=== PATIENT | male | born 1955 | race Caucasian/White ===

== ENCOUNTER 2018-11-12 17:55 | Inpatient (IN) | payer MEDICARE ==
[2018-11-12] MEDS ORDERED: SODIUM CHLORIDE 0.9% 500 ML 500 ML IV STA (18:01)
--- NOTE | 2018-11-12 18:31 | ED ---
General Adult HPI - General Stated complaint: POSS CVA Time Seen by Provider: 11/12/18 17:56 Source: EMS Mode of arrival: EMS Limitations: no limitations - History of Present Illness Initial comments: Dictation was produced using [employer] dictation software. please excuse any grammatical, word or spelling errors. Chief Complaint: 63-year-old male with past medical history of diabetes and BKA presents with strokelike symptoms starting 6 hours ago History of Present Illness: 63-year-old male presents with strokelike symptoms starting 6 hours prior to arrival. Patient states she was in bed when he is awake when he medially noted that he felt some weakness. Patient states that his with his left arm. Patient denies any stroke in the past. He called EMS and EMS brought patient to the emergency department. EMS found the patient had some arm drift and left facial droop. Patient denies any blood thinners or history of CVA/TIA. Denies any intracranial bleed. The ROS documented in this emergency department record has been reviewed and co nfirmed by me. Those systems with pertinent positive or negative responses have been documented in the HPI. All other systems are other negative and/or noncontributory. PHYSICAL EXAM: General Impression: Alert and oriented x3, not in acute distress, malodorous HEENT: Normocephalic atraumatic, extra-ocular movements intact, pupils equal and reactive to light bilaterally, mucous membranes moist. Cardiovascular: Heart regular rate and rhythm, S1&S2 audible, no murmurs, rubs or gallops Chest: Lungs clear to auscultation bilaterally, no rhonchi, no wheeze, no rales Abdomen: Bowel sounds present, abdomen soft, non-tender, non-distended, no organomegaly Musculoskeletal: Pulses present and equal in all extremities, no peripheral edema Motor: no focal deficits noted Neurological: Left facial droop, left upper extremity arm drift Skin: Intact with no visualized rashes Psych: Normal affect and mood ED course: 63-year-old male with 6 hours of strokelike symptoms. Patient given initial NIH of 2. Vital signs upon arrival are within acceptable limits.Patient case was discussed with Dr. Garcia who recommended that patient is not a candidate for TPA. Agree with this recommendation. Patient reevaluated with improvement of his symptoms. Laboratory evaluation obtained. CBC, coag panel, metabolic panel is unremarkable. CT angios does not show an acute processes. Brain CT is unremarkable. Chest x-ray is nonacute. Patient given aspirin. Patient be admitted to [facility]. Discussed patient case with Dr. Hartman who is willing to accept admission. Neurology consultation. EKG interpretation: Ventricular rate 75, normal sinus rhythm, WV interval 184, care is 134, QTc 444. No WV prolongation, no QTC prolongation, no ST or T-wave changes noted. No old EKG for comparison - Related Data Home Medications Medication Instructions Recorded Confirmed INSULIN ASPART (NovoLOG) [NovoLOG 10 unit SQ AC-TID 11/12/18 11/12/18 (formulary)] Allergies Allergy/AdvReac Type Severity Reaction Status Date / Time No Known Allergies Allergy Unverified 11/12/18 18:22 Review of Systems ROS Statement: Those systems with pertinent positive or pertinent negative responses have been documented in the HPI. ROS Other: All systems not noted in ROS Statement are negative. Past Medical History Past Medical History: Unable to Obtain History of Any Multi-Drug Resistant Organisms: None Reported Past Surgical History: Unable to Obtain Past Psychological History: Depression Smoking Status: Never smoker Past Alcohol Use History: None Reported Past Drug Use History: None Reported General Exam Limitations: no limitations Course Vital Signs 11/12/18 11/12/18 11/12/18 18:00 18:15 18:28 Temperature 97.9 F Pulse Rate 102 H 89 100 Respiratory 20 18 20 Rate Blood Pressure 165/100 162/99 165/100 O2 Sat by Pulse 97 97 97 Oximetry 11/12/18 11/12/18 11/12/18 18:30 18:40 18:50 Temperature Pulse Rate 90 75 74 Respiratory 18 16 17 Rate Blood Pressure 167/87 158/95 168/98 O2 Sat by Pulse 92 L 95 94 L Oximetry 11/12/18 19:30 Temperature 98.2 F Pulse Rate 72 Respiratory 18 Rate Blood Pressure 167/92 O2 Sat by Pulse 96 Oximetry Medical Decision Making - Lab Data Result diagrams: 11/12/18 18:23 11/12/18 18:23 Lab Results 11/12/18 11/12/18 11/12/18 Range/Units 18:23 18:23 18:23 WBC 7.6 (3.8-10.6) k/uL RBC 5.80 (4.30-5.90) m/uL Hgb 17.9 H (13.0-17.5) gm/dL Hct 53.7 H (39.0-53.0) % MCV 92.5 (80.0-100.0) fL MCH 30.8 (25.0-35.0) pg MCHC 33.3 (31.0-37.0) g/dL RDW 13.0 (11.5-15.5) % Plt Count 149 L (150-450) k/uL Neutrophils % 69 % Lymphocytes % 21 % Monocytes % 4 % Eosinophils % 3 % Basophils % 1 % Neutrophils # 5.3 (1.3-7.7) k/uL Lymphocytes # 1.6 (1.0-4.8) k/uL Monocytes # 0.3 (0-1.0) k/uL Eosinophils # 0.3 (0-0.7) k/uL Basophils # 0.1 (0-0.2) k/uL PT (9.0-12.0) sec INR (<1.2) APTT (22.0-30.0) sec Sodium 134 L (137-145) mmol/L Potassium 3.9 (3.5-5.1) mmol/L Chloride 104 (98-107) mmol/L Carbon Dioxide 24 (22-30) mmol/L Anion Gap 6 mmol/L BUN 12 (9-20) mg/dL Creatinine 0.87 (0.66-1.25) mg/dL Est GFR (CKD-EPI)AfAm >90 (>60 ml/min/1.73 sqM) Est GFR (CKD-EPI)NonAf >90 (>60 ml/min/1.73 sqM) Glucose 278 H (74-99) mg/dL Calcium 9.9 (8.4-10.2) mg/dL Total Bilirubin 0.7 (0.2-1.3) mg/dL AST 11 L (17-59) U/L ALT 11 L (21-72) U/L Alkaline Phosphatase 99 (38-126) U/L Total Creatine Kinase 33 L (55-170) U/L CK-MB (CK-2) 0.3 (0.0-2.4) ng/mL CK-MB (CK-2) Rel Index 0.9 Troponin I <0.012 (0.000-0.034) ng/mL Total Protein 6.3 (6.3-8.2) g/dL Albumin 3.2 L (3.5-5.0) g/dL 11/12/18 Range/Units 18:23 WBC (3.8-10.6) k/uL RBC (4.30-5.90) m/uL Hgb (13.0-17.5) gm/dL Hct (39.0-53.0) % MCV (80.0-100.0) fL MCH (25.0-35.0) pg MCHC (31.0-37.0) g/dL RDW (11.5-15.5) % Plt Count (150-450) k/uL Neutrophils % % Lymphocytes % % Monocytes % % Eosinophils % % Basophils % % Neutrophils # (1.3-7.7) k/uL Lymphocytes # (1.0-4.8) k/uL Monocytes # (0-1.0) k/uL Eosinophils # (0-0.7) k/uL Basophils # (0-0.2) k/uL PT 10.2 (9.0-12.0) sec INR 1.0 (<1.2) APTT 26.3 (22.0-30.0) sec Sodium (137-145) mmol/L Potassium (3.5-5.1) mmol/L Chloride (98-107) mmol/L Carbon Dioxide (22-30) mmol/L Anion Gap mmol/L BUN (9-20) mg/dL Creatinine (0.66-1.25) mg/dL Est GFR (CKD-EPI)AfAm (>60 ml/min/1.73 sqM) Est GFR (CKD-EPI)NonAf (>60 ml/min/1.73 sqM) Glucose (74-99) mg/dL Calcium (8.4-10.2) mg/dL Total Bilirubin (0.2-1.3) mg/dL AST (17-59) U/L ALT (21-72) U/L Alkaline Phosphatase (38-126) U/L Total Creatine Kinase (55-170) U/L CK-MB (CK-2) (0.0-2.4) ng/mL CK-MB (CK-2) Rel Index Troponin I (0.000-0.034) ng/mL Total Protein (6.3-8.2) g/dL Albumin (3.5-5.0) g/dL Disposition Clinical Impression: Cerebrovascular accident Disposition: ADMITTED IP TO THIS HOSP Condition: Fair Referrals: None,Stated [Primary Care Provider] - 1-2 days Decision Time: 20:40
[2018-11-12 18:34] LABS: Basophils # (A) 0.1 k/uL (0-0.2); Basophils % (A) 1 %; Eosinophils # (A) 0.3 k/uL (0-0.7); Eosinophils % (A) 3 %; HCT 53.7 % (39.0-53.0); HGB 17.9 gm/dL (13.0-17.5); Lymphocytes # (A) 1.6 k/uL (1.0-4.8); Lymphocytes % (A) 21 %; MCH 30.8 pg (25.0-35.0); MCHC 33.3 g/dL (31.0-37.0); MCV 92.5 fL (80.0-100.0); Mean Platelet Volume 8.4; Monocytes # (A) 0.3 k/uL (0-1.0); Monocytes % (A) 4 %; Neutrophils # (A) 5.3 k/uL (1.3-7.7); Neutrophils % (A) 69 %; Platelet Count 149 k/uL (150-450); WBC 7.6 k/uL (3.8-10.6)
--- NOTE | 2018-11-12 18:43 | CT ---
EXAMINATION TYPE: CT brain wo con for TPA DATE OF EXAM: 11/12/2018 HISTORY: Cerebrovascular accident CT DLP: 1184.4 mGycm. Automated Exposure Control for Dose Reduction was Utilized. TECHNIQUE: CT scan of the head is performed without contrast. COMPARISON: None. FINDINGS: There is no acute intracranial hemorrhage or midline shift identified. There is diffuse v entricular and sulcal prominence consistent with diffuse age-related cerebral atrophy. There is low- attenuation in the periventricular white matter consistent with chronic small vessel ischemic change. The globes are intact and the visualized sinuses are clear. IMPRESSION: No acute intracranial hemorrhage or midline shift.
[2018-11-12 18:44] LABS: ALT 11 U/L (21-72); AST 11 U/L (17-59); Albumin 3.2 g/dL (3.5-5.0); Alkaline Phosphatase 99 U/L (38-126); Anion Gap 6 mmol/L; Blood Urea Nitrogen 12 mg/dL (9-20); Calcium 9.9 mg/dL (8.4-10.2); Carbon Dioxide 24 mmol/L (22-30); Chloride 104 mmol/L (98-107); Glucose 278 mg/dL (74-99); Potassium 3.9 mmol/L (3.5-5.1); Sodium 134 mmol/L (137-145); Total Bilirubin 0.7 mg/dL (0.2-1.3); Total Protein 6.3 g/dL (6.3-8.2)
[2018-11-12 18:46] LABS: Partial Thromboplastin Time 26.3 sec (22.0-30.0); Prothrombin Time 10.2 sec (9.0-12.0)
[2018-11-12 18:49] LABS: Creatine Kinase 33 U/L (55-170)
--- NOTE | 2018-11-12 18:58 | CT ---
EXAMINATION TYPE: CT angio head neck DATE OF EXAM: 11/12/2018 HISTORY: cva COMPARISON: NONE CT DLP: 737.9 mGycm. Automated Exposure Control for Dose Reduction was Utilized. TECHNIQUE: CTA scan of the neck is performed with IV Contrast, patient injected with 50cc mL of Isov ue 370, axial images are obtained, coronal and sagittal reformatted images are reviewed. Three-D jude nstructed images are created on an independent workstation and reviewed. FINDINGS: Carotid/Vascular Structures: Visualized portions of the aortic arch are within normal limits. Normal three-vessel aortic arch. Th e right common carotid artery is patent. The ECA is patent at its origin. ICA is patent throughout it s course without evidence of aneurysmal dilatation or narrowing. The left common carotid artery is wi thin normal limits. Left ECA is patent at its origin. Left ICA is widely patent with no evidence or a s residual dilatation narrowing or dissection. Vertebral arteries are patent bilaterally. No evidence of dissection. Basilar artery is within normal limits. [place] of [place] is intact. MCA, BENITA and KNITTER WIRE MESH are patent at th eir origins. There is no evidence of large vessel narrowing or aneurysm. IMPRESSION 1. No hemodynamically significant stenosis of the bilateral carotid or vertebrobasilar system. 2. No large vessel intracranial arterial narrowing or aneurysm.
[2018-11-12 19:03] LABS: Creatine Kinase MB 0.3 ng/mL (0.0-2.4); Troponin I <0.012 ng/mL (0.000-0.034)
--- NOTE | 2018-11-12 19:13 | XR ---
EXAMINATION TYPE: XR chest 1V DATE OF EXAM: 11/12/2018 COMPARISON: NONE HISTORY: TECHNIQUE: Single frontal view of the chest is obtained. FINDINGS: There is no focal air space opacity, pleural effusion, or pneumothorax seen. The cardiac silhouette size is within normal limits. The osseous structures are intact. IMPRESSION: No acute process.
[2018-11-12] MEDS ORDERED: ASPIRIN 81 MG PO STA (20:33)
[2018-11-12] MEDS ORDERED: SODIUM CHLORIDE 0.9% 1,000 ML IV SCH (20:45)
[2018-11-12] MEDS: FAMOTIDINE 20 MG TAB PO SCH (21:26)
[2018-11-12] MEDS ORDERED: ATORVASTATIN 80 MG TAB PO STA (21:37)
--- NOTE | 2018-11-12 21:43 | P.HPIM ---
History of Present Illness H&P Date: 11/12/18 The patient is a 63 yo M with a PMH of DM, PVD s/p L BKA, active smoker (smokes 12 cigars daily, started smoking as a teenager), and HTN, presented to the ED for sudden onset of L sided weakness and facial droop. The patient reported that he was in his usual state of health and was in bed laying down when he noticed his left side being weaker than his right. He then noticed that his speech some slurred and he had the facial droop. He subsequently activated EMS who brought him to the ED. He has never had such symptoms in the past. He denied decreased sensation, tingling, numbness, visual disturbances, chest pain, palpitations, nausea, vomiting, or diaphoresis. He also denied fever, chills, headache, abdominal pain, or diarrhea. He underwent an extensive evaluation in the ED w/ Head CT showing chronic small vessel ischemic disease but otherwise no acute abnormalities. Head and neck CTA were unremarkable. CXR revealed no acute abnormalities. EKG revealed a NSR @ 75 bpm w/ Left axis deviation with no acute ST-T wave changes noted. Laboratory evaluation revealed a hemoglobin of 17.9, WBC count of 7.6, platelets 149, Troponin < 0.012, Cr 0.87, K 3.9, and glucose 278. A code stroke was activated in the ED and the patient was given ASA 325 mg po. As per the ED documentation, the case was discussed with neuro-counterintelligence agent (Dr Garcia) who recommended hat patient is not a candidate for TPA. The patient is being admitted for further management. Review of Systems Pertinent positives and negatives as discussed in HPI, a complete review of systems was performed and all other systems are negative. Past Medical History Past Medical History: Unable to Obtain History of Any Multi-Drug Resistant Organisms: None Reported Past Surgical History: Unable to Obtain Past Psychological History: Depression Smoking Status: Never smoker Past Alcohol Use History: None Reported Past Drug Use History: None Reported Medications and Allergies Home Medications Medication Instructions Recorded Confirmed Type INSULIN ASPART (NovoLOG) [NovoLOG 10 unit SQ AC-TID 11/12/18 11/12/18 History (formulary)] Allergies Allergy/AdvReac Type Severity Reaction Status Date / Time No Known Allergies Allergy Unverified 11/12/18 18:22 Physical Exam Vitals: Vital Signs Temp Pulse Resp BP Pulse Ox 11/12/18 19:30 98.2 F 72 18 167/92 96 11/12/18 18:50 74 17 168/98 94 L 11/12/18 18:40 75 16 158/95 95 11/12/18 18:30 90 18 167/87 92 L 11/12/18 18:28 97.9 F 100 20 165/100 97 11/12/18 18:15 89 18 162/99 97 11/12/18 18:00 102 H 20 165/100 97 Intake and Output 11/12/18 11/12/18 11/12/18 06:59 14:59 22:59 Other: Weight 119 kg General: non toxic, no distress, appears at stated age, obese Derm: no unusual rashes/lesions no unusual ecchymoses, warm, dry Head: atraumatic, normocephalic, symmetric Eyes: EOMI, no lid lag, anicteric sclera, pupils equal round reactive to light ENT: Nose and ears atraumatic, no thrush, no pharyngeal erythema Neck: No thyromegaly, no cervical lymphadenopathy, trachea midline, supple Mouth: no lip lesion, mucus membranes moist Cardiovascular: S1S2 reg, no murmur, diminished doralis pedis pulses R leg, no edema, capillary refill less than 2 seconds Lungs: CTA bilateral, no rhonchi, no rales , no accessory muscle use Abdominal: soft, nontender to palpation, no guarding, no appreciable organomegaly, normal bowel sounds Ext: no gross muscle atrophy, L BKA, Muscle strength 2/5 in LUE and LLE, no contractures, Strength 5/5 on RUE and RLE Neuro: CN II-XI grossly intact, L facial droop, light touch intact all 4 extremities Psych: Alert, oriented, appropriate affect Results CBC & Chem 7: 11/12/18 18:23 11/12/18 18:23 Labs: Abnormal Lab Results - Last 24 Hours (Table) 11/12/18 11/12/18 11/12/18 Range/Units 18:23 18:23 18:23 Hgb 17.9 H (13.0-17.5) gm/dL Hct 53.7 H (39.0-53.0) % Plt Count 149 L (150-450) k/uL Sodium 134 L (137-145) mmol/L Glucose 278 H (74-99) mg/dL AST 11 L (17-59) U/L ALT 11 L (21-72) U/L Total Creatine Kinase 33 L (55-170) U/L Albumin 3.2 L (3.5-5.0) g/dL Assessment and Plan Plan: Acute CVA -Obtain Echocardiogram, MRI brain, Swallow-evaluation -Neck CTA appreciated -Neurology consult -PT consult -Cardiac monitoring -Aspiration and fall precautions -C/w Aspirin -Start Lipitor 80 mg -Check A1C and lipids Diabetes mellitus w/ hyperglycemia -Check A1C -Levemir 10 U qhs and Sliding scale -Blood glucose monitoring Thrombocytopenia -Monitor CBC for now HTN -Allow permissive hypertension in setting of acute stroke -Will treat if BP >220/120 DVT prophylaxis -IPCDs The patient is admitted with an anticipated greater than 2 midnight stay for evaluation of acute stroke. CODE STATUS:No Code Discussed with: Patient Anticipated discharge date: 11/15/[address]: Home A total of 40 minutes was spent on the care of this complex patient more than 50% of the time was spent in counseling and care coordination.
[2018-11-12] MEDS ORDERED: MELATONIN 3 MG TABLET PO STA (22:47)
[2018-11-12] MEDS: INSULIN DETEMIR (LEVEMIR) 100 UNIT/ML SYR SQ SCH (22:49)
[2018-11-12 23:02] LABS: Glucose,Whole Blood 256 mg/dL (75-99)
[2018-11-13 00:08] LABS: Cholesterol 177 mg/dL (<200); HDL Cholesterol 40 mg/dL (40-60); LDL Cholesterol,Calculated 109 mg/dL (0-99); Triglycerides 140 mg/dL (<150)
[2018-11-13 06:06] LABS: Glucose,Whole Blood 213 mg/dL (75-99)
[2018-11-13] MEDS: INSULIN ASPART (NovoLOG) 100 UNIT/ML VIAL SQ SCH ×4 (06:12→21:55)
[2018-11-13] MEDS: FAMOTIDINE 20 MG TAB PO SCH ×2 (08:33→21:55)
[2018-11-13] MEDS ORDERED: ASPIRIN 325 MG TAB PO SCH (09:00)
--- NOTE | 2018-11-13 10:30 | MR ---
MR brain without contrast HISTORY: Cerebrovascular accident Multiplanar multisequence imaging through the brain Correlation CT brain 11/12/2018 There is restricted diffusion involving the basal ganglia on the right, region of the globus pallidus with corresponding hyperintensity noted on T1 and inversion recovery sequences. Periventricular conf luent and scattered hyperintensities are present in the periventricular and T2-weighted sequences, ap proximately 50 lesions are present. There is no hemorrhage or hydrocephalus. There are normal vascula r flow voids present. Inflammatory changes present within the sphenoid sinus, ethmoid air cells, left mastoid air cells and temporal bone. Orbits show symmetric appearance. Cortical atrophy is likely ag e-related. Anterior corpus callosum shows some possible encephalomalacia. Cervical medullary junction , cerebellopontine angles are within normal limits. Pituitary is normal. IMPRESSION: Subacute infarct basal ganglia on the right. Chronic small vessel ischemic changes, age r elated atrophy. Sinus disease, correlate for mastoiditis.
--- NOTE | 2018-11-13 11:05 | ECHOF ---
Referral Reason:Acute CVA MEASUREMENTS -------- HEIGHT: 180.3 cm WEIGHT: 120.7 kg BP: 181/89 RVIDd: 2.9 cm (< 3.3) IVSd: 1.6 cm (0.6 - 1.1) LVIDd: 3.7 cm (3.9 - 5.3) LVPWd: 2.0 cm (0.6 - 1.1) IVSs: 2.2 cm LVIDs: 2.2 cm LVPWs: 2.1 cm Ao Diam: 3.6 cm (2.0 - 3.7) AV Cusp: 1.5 cm (1.5 - 2.6) LA Diam: 2.6 cm (2.7 - 3.8) MV EXCURSION: 15.965 mm (> 18.000) MV EF SLOPE: 33 mm/s (70 - 150) EPSS: 1.1 cm MV E Paras: 0.75 m/s MV DecT: 299 ms MV A Paras: 0.76 m/s MV E/A Ratio: 0.99 RAP: 5.00 mmHg RVSP: 8.53 mmHg FINDINGS -------- Sinus rhythm. This was a technically difficult study with suboptimal views. The left ventricular size is normal. There is severe concentric left ventricular hypertrophy. Ove rall left ventricular systolic function is normal with, an EF between 55 - 60 %. The right ventricle is normal in size. The left atrial size is normal. The right atrial size is normal. Lumason used Interatrial and interventricular septum intact. The aortic valve is trileaflet and appears structurally normal. The mitral valve is normal. There is trace mitral regurgitation. The tricuspid valve appears structurally normal. Trace tricuspid regurgitation present. There is no evidence of pulmonary hypertension. Unable to estimate RVSP due to inadequate TR jet spectral do ppler profile. There is no pulmonic regurgitation present. Normal inferior vena cava with normal inspiratory collapse consistent with estimated right atrial pre ssure of 5 mmHg. There is no pericardial effusion. CONCLUSIONS -------- 1. Sinus rhythm. 2. This was a technically difficult study with suboptimal views. 3. The left ventricular size is normal. 4. There is severe concentric left ventricular hypertrophy. 5. Overall left ventricular systolic function is normal with, an EF between 55 - 60 %. 6. The right ventricle is normal in size. 7. The left atrial size is normal. 8. The right atrial size is normal. 9. Lumason used 10. Interatrial and interventricular septum intact. 11. The aortic valve is trileaflet and appears structurally normal. 12. The mitral valve is normal. 13. There is trace mitral regurgitation. 14. The tricuspid valve appears structurally normal. 15. Trace tricuspid regurgitation present. 16. There is no evidence of pulmonary hypertension. 17. Unable to estimate RVSP due to inadequate TR jet spectral doppler profile. 18. There is no pulmonic regurgitation present. 19. Normal inferior vena cava with normal inspiratory collapse consistent with estimated right atrial pressure of 5 mmHg. 20. There is no pericardial effusion. [employer]UST[employer] PROFESSOR: Juana Singleton RDCS
--- NOTE | 2018-11-13 11:16 | P.CNNES ---
History of Present Illness Consult date: 11/13/18 Reason for Consult: CVA History of Present Illness: Patient is a 63-year-old right-handed male with history of diabetes, left below- knee amputation, cigar user, came to the hospital because of weakness and possible stroke. Patient says that he woke up yesterday morning at 6 AM and felt weak all over, left more than right. He felt dizzy, mumbling words, couldn't stop going to the bathroom. He called his brother, who called 911 and was brought to the hospital. Stroke neurologist Dr. Leigh was contacted by ED staff, and patient was not a candidate for TPA, as his symptoms have been present for greater than 4.5 hours, prior to the arrival to ER. Patient underwent computed tomography scan of the head, which revealed no acute process. Chest x-ray showed no acute process. EKG showed normal sinus rhythm, with left axis deviation. CTA of head and neck showed no hemodynamically significant stenosis of bilateral carotid or vertebral basilar system. No large vessel intercranial arterial narrowing or aneurysm. Patient's blood test shows normal CBC with hemoglobin slightly elevated 17.9, PT/PTT normal. Sodium 134 potassium 3.9. Renal functions normal. Patient's total cholesterol is 177, LDL 109, HDL 40. Patient has history of diabetes for 20-25 years. He takes insulin regularly, but has not seen doctors for quite some time. He states his last hemoglobin A1c was 9.2 "many years ago". He also had left below-knee amputation, from [facility] several years ago. Patient smokes 12 cigars per day since he was 89. He does not take any antiplatelet medication at home. Denies hypertension. Patient also had an MRI of the brain performed today, which revealed subacute infarct basal ganglia on the right. Chronic small vessel ischemic changes, age- related atrophy. Sinus disease, correlate for mastoiditis. Review of Systems Constitutional: Reports as per HPI, Denies fever, Denies weight loss Ears, nose, mouth and throat: Denies headache, Denies vertigo Respiratory: Denies hemoptysis, Denies wheezing Gastrointestinal: Denies abdominal pain Past Medical History Past Medical History: Diabetes Mellitus History of Any Multi-Drug Resistant Organisms: None Reported Past Surgical History: Unable to Obtain Additional Past Surgical History / Comment(s): otho surgery to neck, metal floresita in left hip, left BKA with prosestic Past Psychological History: Depression Smoking Status: Current every day smoker Past Alcohol Use History: None Reported Past Drug Use History: None Reported - Past Family History Father Family Medical History: Diabetes Mellitus Mother Family Medical History: Unable to Obtain Medications and Allergies Home Medications Medication Instructions Recorded Confirmed Type INSULIN ASPART (NovoLOG) [NovoLOG 10 unit SQ AC-TID 11/12/18 11/12/18 History (formulary)] Allergies Allergy/AdvReac Type Severity Reaction Status Date / Time No Known Allergies Allergy Unverified 11/12/18 18:22 Physical Examination - Vital Signs Vital Signs: Vital Signs Temp Pulse Pulse Resp BP BP Pulse Ox 11/13/18 07:37 97.6 F 76 18 144/86 91 L 11/13/18 05:37 74 18 181/89 11/13/18 04:00 66 18 11/13/18 03:37 66 18 160/81 93 L 11/13/18 01:37 71 18 11/13/18 00:00 57 L 18 11/12/18 23:37 57 L 18 138/61 93 L 11/12/18 22:37 98 F 71 18 138/86 94 L 11/12/18 21:15 98.9 F 72 18 163/100 95 11/12/18 19:30 98.2 F 72 18 167/92 96 11/12/18 18:50 74 17 168/98 94 L 11/12/18 18:40 75 16 158/95 95 11/12/18 18:30 90 18 167/87 92 L 11/12/18 18:28 97.9 F 100 20 165/100 97 11/12/18 18:15 89 18 162/99 97 11/12/18 18:00 102 H 20 165/100 97 Intake and Output 11/12/18 11/13/18 11/13/18 22:59 06:59 14:59 Output Total 300 0 Balance -300 0 Output: Urine 300 0 Other: Voiding Method Urinal # Voids 1 # Bowel Movements 1 Weight 123.5 kg 121 kg On examination patient is a late middle aged male, who is laying comfo rtably in the bed. Patient's speech is mild to moderately dysarthric, but no aphasia. Attention, concentration and fund of knowledge adequate. No obvious bruit S1 and S2 audible. Patient has left below-knee amputation from [facility]. On cranial nerve examination his pupils are round and reactive to light. He has mild left ptosis, slightly conjunctival injection on the left. Patient has left facial weakness, central type. Tongue protrudes in midline. Palatal elevation and sensation is normal. On muscle strength testing, patient has left pronator drift. The strength is normal in arms and the right leg distally and proximally. In fact his left leg at hip flexion also appears as good as right. Patient is ataxic for [id number] on the left. Reflexes are 1-1+ in the upper limbs, diminished at the knees, and plantars downgoing on the right, has no foot on the left. Tone and bulk of muscles normal. Sensations are equal bilaterally with no neglect. Results - Laboratory Findings CBC and BMP: 11/12/18 18:23 11/12/18 18:23 Abnormal Lab Findings: Abnormal Labs 11/12/18 11/12/18 11/12/18 18:23 18:23 18:23 Hgb 17.9 H Hct 53.7 H Plt Count 149 L Sodium 134 L Glucose 278 H POC Glucose (mg/dL) AST 11 L ALT 11 L Total Creatine Kinase 33 L Albumin 3.2 L LDL Cholesterol, Calc 11/12/18 11/12/18 11/13/18 18:23 22:42 06:02 Hgb Hct Plt Count Sodium Glucose POC Glucose (mg/dL) 256 H 213 H AST ALT Total Creatine Kinase Albumin LDL Cholesterol, Calc 109 H Assessment and Plan Assessment: * Acute ischemic infarction involving the basal ganglia on the right. CVA likely due to lacunar infarction from small vessel disease. * Diabetes * Hypertension * Cigar user * Peripheral vascular disease * History of left below-knee amputation * Noncompliance with medical follow-ups outpatient Plan: We will place on dual antiplatelet medications including aspirin 81 mg and Plavix 75 mg for 3 months. Afterwards he could be placed on a single antiplatelet agent with aspirin. Await 2-D echo, hemoglobin A1c. Continue Lipitor 80 mg daily. PT OT, speech therapy. Tobacco cessation DVT prophylaxis.
[2018-11-13 12:08] LABS: Glucose,Whole Blood 255 mg/dL (75-99)
[2018-11-13] MEDS: CLOPIDOGREL 75 MG TAB PO SCH (12:21)
[2018-11-13 16:09] VITALS: RESP 18
--- NOTE | 2018-11-13 16:16 | P.CONS ---
History of Present Illness - Chief Complaint Gait disturbance and left hemiparesthesias - History of Present Illness I had the opportunity to see patient for inpatient rehab consultation with regard to gait disturbance. He was admitted to [facility] November 12 acute onset left-sided weakness. Seen by Dr. Jean-Baptiste. Note head CT, chest x-ray and angiogram CT all negative. Brain MRI demonstrated right basal ganglia infarct chronic change and atrophy. PT reports moderate assistance for bed mobility, maximal assistance for transfers and minimal assistance for gait 20 feet with roller walker. OT reports minimal assistance for upper dressing and moderate to maximal assistance for lower dressing and bathing. Moderate assistance for toileting and moderate to maximal assistance for toilet transfer. Beach therapy via patient and he did well. Previous functional history as elicited from patient: 63-year-old right-handed white male who is single lives and 9 floor apartment. Retired/disabled. Describes improvement with own cooking, laundry, sitdown shower and gait without device. Does not have regular doctor. Smokes 12 cigars per day and denies alcohol. Family history diabetes in mother and cardiac disease in father. Review of Systems Review of systems: ENT: Denies sneezes or discharge. Eyes: Denies discharge or photophobia. Cardiac: Denies chest pain or palpitation. Pulmonary: Denies cough or shortness of breath. Gastrointestinal: Denies nausea, emesis, constipation, diarrhea. Genitourinary: Denies discharge or frequency. Musculoskeletal: Denies muscle or bone aches. Neurologic: Left-sided weakness and numbness. Endocrine: Denies shakes or sweats. Oncology: Denies cancers. Dermatologic: Denies rash, itching, pruritus. ALLERGY/immunology: Denies sneezes, rashes. All systems: negative Past Medical History Past Medical History: Diabetes Mellitus History of Any Multi-Drug Resistant Organisms: None Reported Past Surgical History: Unable to Obtain Additional Past Surgical History / Comment(s): otho surgery to neck, metal floresita in left hip, left BKA with prosestic Past Psychological History: Depression Smoking Status: Current every day smoker Past Alcohol Use History: None Reported Past Drug Use History: None Reported - Past Family History Father Family Medical History: Diabetes Mellitus Mother Family Medical History: Unable to Obtain Medications and Allergies Home Medications Medication Instructions Recorded Confirmed Type INSULIN ASPART (NovoLOG) [NovoLOG 10 unit SQ AC-TID 11/12/18 11/12/18 History (formulary)] Allergies Allergy/AdvReac Type Severity Reaction Status Date / Time No Known Allergies Allergy Unverified 11/12/18 18:22 Physical Exam Vitals: Vital Signs Temp Pulse Pulse Resp BP BP Pulse Ox 11/13/18 16:00 97.8 F 78 18 143/91 94 L 11/13/18 12:00 97.9 F 80 16 181/98 93 L 11/13/18 07:37 97.6 F 76 18 144/86 91 L 11/13/18 05:37 74 18 181/89 11/13/18 04:00 66 18 11/13/18 03:37 66 18 160/81 93 L 11/13/18 01:37 71 18 11/13/18 00:00 57 L 18 11/12/18 23:37 57 L 18 138/61 93 L 11/12/18 22:37 98 F 71 18 138/86 94 L 11/12/18 21:15 98.9 F 72 18 163/100 95 11/12/18 19:30 98.2 F 72 18 167/92 96 11/12/18 18:50 74 17 168/98 94 L 11/12/18 18:40 75 16 158/95 95 11/12/18 18:30 90 18 167/87 92 L 11/12/18 18:28 97.9 F 100 20 165/100 97 11/12/18 18:15 89 18 162/99 97 11/12/18 18:00 102 H 20 165/100 97 Intake and Output 11/13/18 11/13/18 11/13/18 06:59 14:59 22:59 Intake Total 237 Output Total 300 0 Balance -300 237 Intake: Oral 237 Output: Urine 300 0 Other: Voiding Method Urinal Weight 121 kg Skin: Good color, texture, turgor. General: Medium build and comfortable appearance. Head: Normocephalic, atraumatic. Eyes: Symmetric. Pupils equal round. Ears: Symmetric. Hearing within normal limits. Mouth: Clear. Neck: Supple. Carotid without bruit. Cardiac: Regular rate and rhythm. Lungs: Clear anteriorly and posteriorly. Abdomen: Soft active nontender. Extremities: Normal tone. Old well-healed left BKA. Has prosthesis. Neurological: Mental status: Alert, cooperative, pleasant. Cranial nerves: Symmetric facial tone and trapezius. Motor: Normal strength and isolation right side. Left side mildly apraxic. Sensation: Intact throughout. DTRs: Symmetric and equal throughout. Mobility: Requires minimal assistance for bed mobility. Results CBC & Chem 7: 11/12/18 18:23 11/12/18 18:23 Labs: Abnormal Lab Results - Last 24 Hours (Table) 11/12/18 11/12/18 11/12/18 Range/Units 18:23 18:23 18:23 Hgb 17.9 H (13.0-17.5) gm/dL Hct 53.7 H (39.0-53.0) % Plt Count 149 L (150-450) k/uL Sodium 134 L (137-145) mmol/L Glucose 278 H (74-99) mg/dL POC Glucose (mg/dL) (75-99) mg/dL AST 11 L (17-59) U/L ALT 11 L (21-72) U/L Total Creatine Kinase 33 L (55-170) U/L Albumin 3.2 L (3.5-5.0) g/dL LDL Cholesterol, Calc (0-99) mg/dL 11/12/18 11/12/18 11/13/18 Range/Units 18:23 22:42 06:02 Hgb (13.0-17.5) gm/dL Hct (39.0-53.0) % Plt Count (150-450) k/uL Sodium (137-145) mmol/L Glucose (74-99) mg/dL POC Glucose (mg/dL) 256 H 213 H (75-99) mg/dL AST (17-59) U/L ALT (21-72) U/L Total Creatine Kinase (55-170) U/L Albumin (3.5-5.0) g/dL LDL Cholesterol, Calc 109 H (0-99) mg/dL 11/13/18 Range/Units 12:06 Hgb (13.0-17.5) gm/dL Hct (39.0-53.0) % Plt Count (150-450) k/uL Sodium (137-145) mmol/L Glucose (74-99) mg/dL POC Glucose (mg/dL) 255 H (75-99) mg/dL AST (17-59) U/L ALT (21-72) U/L Total Creatine Kinase (55-170) U/L Albumin (3.5-5.0) g/dL LDL Cholesterol, Calc (0-99) mg/dL Assessment and Plan Plan: Impression: 1. Gait disturbance. 2. Acute right basal ganglia infarct result in left hemiparesthesias. 3. Old left BKA. 4. Diabetes. Comments and plan: At this time PT, OT, HEALTH AND WELLNESS COORDINATOR ongoing. Patient safety concerns demonstrated ability tolerate and benefit from therapies. Have discussed possible inpatient rehab with patient and he seems agreeable. Note that he has a brother can be supportive with regard to discharge planning.
--- NOTE | 2018-11-13 16:51 | P.PN ---
Subjective Progress Note Date: 11/13/18 Principal diagnosis: CVA Patient was seen and examined. No acute events overnight. Patient complains of extreme fatigue. Patient complains of difficulty finding words and slight improvement in his left sided weakness. He denies any chest pain, shortness of breath or palpitations. No nausea or vomiting. No fever or chills. Objective - Vital Signs Vital signs: Vital Signs Temp 97.8 F 11/13/18 16:00 Pulse 78 11/13/18 16:00 Resp 18 11/13/18 16:00 BP 143/91 11/13/18 16:00 Pulse Ox 94 L 11/13/18 16:00 Intake & Output 11/12/18 11/13/18 11/13/18 18:59 06:59 18:59 Intake Total 237 Output Total 300 0 Balance -300 237 Weight 119 kg 121 kg Intake: Oral 237 Output: Urine 300 0 Other: Voiding Method Urinal # Voids 1 # Bowel Movements 1 - Exam General: [non toxic], [no distress], [appears at stated age] Derm: [warm], [dry] Head: [atraumatic], [normocephalic], [symmetric] Eyes: [EOMI], [no lid lag], [anicteric sclera] Mouth: [no lip lesion], [mucus membranes moist] Cardiovascular: [S1S2 reg], [no murmur], [positive DP pulse right lower extremity], Lungs: [CTA bilateral], [no rhonchi, no rales] , [no accessory muscle use] Abdominal: [soft], [ nontender to palpation], [no guarding], [no appreciable organomegaly] Ext: [no gross muscle atrophy], [no edema], [no contractures] Neuro: [ CN II-XI grossly intact except for left facial droop], [2-3 out of 5 in left upper and lower extremity, 5 out of 5 otherwise. Sensation intact to touch in all 4 extremities] Psych: [Alert], [oriented], [appropriate affect] - Labs CBC & Chem 7: 11/12/18 18:23 11/12/18 18:23 Labs: Abnormal Lab Results - Last 24 Hours (Table) 11/12/18 11/12/18 11/12/18 Range/Units 18:23 18:23 18:23 Hgb 17.9 H (13.0-17.5) gm/dL Hct 53.7 H (39.0-53.0) % Plt Count 149 L (150-450) k/uL Sodium 134 L (137-145) mmol/L Glucose 278 H (74-99) mg/dL POC Glucose (mg/dL) (75-99) mg/dL AST 11 L (17-59) U/L ALT 11 L (21-72) U/L Total Creatine Kinase 33 L (55-170) U/L Albumin 3.2 L (3.5-5.0) g/dL LDL Cholesterol, Calc (0-99) mg/dL 11/12/18 11/12/18 11/13/18 Range/Units 18:23 22:42 06:02 Hgb (13.0-17.5) gm/dL Hct (39.0-53.0) % Plt Count (150-450) k/uL Sodium (137-145) mmol/L Glucose (74-99) mg/dL POC Glucose (mg/dL) 256 H 213 H (75-99) mg/dL AST (17-59) U/L ALT (21-72) U/L Total Creatine Kinase (55-170) U/L Albumin (3.5-5.0) g/dL LDL Cholesterol, Calc 109 H (0-99) mg/dL 11/13/18 Range/Units 12:06 Hgb (13.0-17.5) gm/dL Hct (39.0-53.0) % Plt Count (150-450) k/uL Sodium (137-145) mmol/L Glucose (74-99) mg/dL POC Glucose (mg/dL) 255 H (75-99) mg/dL AST (17-59) U/L ALT (21-72) U/L Total Creatine Kinase (55-170) U/L Albumin (3.5-5.0) g/dL LDL Cholesterol, Calc (0-99) mg/dL Assessment and Plan Assessment: Assessment and Plan Acute CVA Diabetes mellitus with hyperglycemia Hypertension Hyperlipidemia Active smoker Symptoms improving but ongoing. Risk factors include hypertension, hyperlipidemia, diabetes mellitus and smoking. CT shows no acute intracranial hemorrhage. CTA head and neck is negative. Echocardiogram shows EF 55-60% with no intracardiac thrombus. MRI brain shows subacute infarct in the basal ganglia on the right. Plan: Continue aspirin, and Plavix. Continue Lipitor. PT and OT recommending subacute rehab. Physiatry was consulted, recommends inpatient rehab. Consult social work for placement to inpatient rehab. Advance neurochecks. Aspiration precautions. Telemetry monitoring. Fall precautions. Follow A1c. Weare-is-lhmv glucose 255. Plan: Levemir 10 units at bedtime. Insulin sliding scale. Regular Accu-Cheks. Hypoglycemic precautions. Follow A1c. BP 143/91. Plan: Permissive hypertension. Monitor vitals, adjust medications as necessary. Lipid panel shows LDL of 109. Plan: Continue Lipitor. Plan: Quit smoking. Heparin subcutaneously for DVT prophylaxis. Patient to go to inpatient rehab. Social work consult pending. Hopeful DC to inpatient rehab tomorrow.
[2018-11-13 17:10] LABS: Glucose,Whole Blood 280 mg/dL (75-99)
[2018-11-13 19:50] LABS: Hemoglobin A1C 12.1 % (4.0-6.0)
[2018-11-13 20:15] LABS: Glucose,Whole Blood 241 mg/dL (75-99)
[2018-11-13] MEDS: ATORVASTATIN 40 MG TAB PO SCH (21:55)
[2018-11-13] MEDS: HEPARIN SODIUM,PORCINE 5,000 UNIT/ML 1 ML VIAL SQ SCH (21:55)
[2018-11-13] MEDS: ZOLPIDEM 10 MG TAB PO PRN (21:56)
[2018-11-13] MEDS: INSULIN DETEMIR (LEVEMIR) 100 UNIT/ML SYR SQ SCH (21:56)
[2018-11-14 06:34] LABS: Glucose,Whole Blood 197 mg/dL (75-99)
[2018-11-14] MEDS ORDERED: INSULIN ASPART (NovoLOG) 100 UNIT/ML VIAL SQ SCH (07:30)
[2018-11-14] MEDS: FAMOTIDINE 20 MG TAB PO SCH ×2 (08:48→20:48)
[2018-11-14] MEDS: ASPIRIN 81 MG PO SCH (08:48)
[2018-11-14] MEDS: CLOPIDOGREL 75 MG TAB PO SCH (08:48)
[2018-11-14] MEDS: HEPARIN SODIUM,PORCINE 5,000 UNIT/ML 1 ML VIAL SQ SCH ×2 (08:48→20:48)
[2018-11-14] MEDS: INSULIN ASPART (NovoLOG) 100 UNIT/ML VIAL SQ SCH ×6 (08:49→20:47)
[2018-11-14 12:08] LABS: Glucose,Whole Blood 258 mg/dL (75-99)
--- NOTE | 2018-11-14 12:45 | P.PN ---
Subjective Progress Note Date: 11/14/18 Patient denies any changes in his condition. Still with mild left-sided weakness. Denies headache. Denies slurred speech, problem with the vision or seizures. Objective - Vital Signs Vital signs: Vital Signs Temp 97.9 F 11/14/18 11:43 Pulse 79 11/14/18 11:43 Resp 18 11/14/18 11:43 BP 142/80 11/14/18 11:43 Pulse Ox 95 11/14/18 11:43 Intake & Output 11/13/18 11/14/18 11/14/18 18:59 06:59 18:59 Intake Total 247 237 240 Output Total 0 300 300 Balance 247 -63 -60 Weight 117.5 kg Intake: Intake, IV Titration 10 Amount Sodium Chloride 0.9% 1, 10 000 ml @ 20 mls/hr IV . Q24H DAVID Rx#:[id number] Oral 237 237 240 Output: Urine 0 300 300 Other: Voiding Method Urinal # Voids 1 - Exam Patient is a late middle aged male, in no distress. Speech and language functions appears normal. Left facial droopiness has resolved. Patient has mild left pronation, no drift. The strength is normal. Sensations equal. Patient has left below-knee amputation, chronic. - Labs CBC & Chem 7: 11/12/18 18:23 11/12/18 18:23 Labs: Abnormal Lab Results - Last 24 Hours (Table) 11/12/18 11/13/18 11/13/18 Range/Units 18:23 17:08 20:12 POC Glucose (mg/dL) 280 H 241 H (75-99) mg/dL Hemoglobin A1c 12.1 H (4.0-6.0) % 11/14/18 11/14/18 Range/Units 06:31 11:48 POC Glucose (mg/dL) 197 H 258 H (75-99) mg/dL Hemoglobin A1c (4.0-6.0) % Assessment and Plan Assessment: * Acute ischemic infarction involving the basal ganglia on the right. CVA likel y due to lacunar infarction from small vessel disease. * Diabetes * Hypertension * Cigar user * Peripheral vascular disease * History of left below-knee amputation * Noncompliance with medical follow-ups outpatient Plan: Continue dual antiplatelet medications including aspirin 81 mg and Plavix 75 mg for 3 months. Afterwards he could be placed on a single antiplatelet agent with aspirin. 2-D echo showed EF 55-60%, normal left atrial size, no embolic source. Hemoglobin A1c 12.1, indicating poorly controlled diabetes. Suggest optimize control of diabetes to target A1c <7.0 Continue Lipitor 80 mg daily. LDL 109. Target LDL <70. PT OT, speech therapy. Tobacco cessation DVT prophylaxis.
--- NOTE | 2018-11-14 12:59 | P.PN ---
Subjective Progress Note Date: 11/14/18 Patient doing well denies any complaints today denies any headache or focal weakness slurred speech or facial droop. Blood sugars have been elevated 197- 280. Patient seen by Dr. Mckee and found to be candidate for inpatient rehab. Objective - Vital Signs Vital signs: Vital Signs Temp 97.9 F 11/14/18 11:43 Pulse 79 11/14/18 11:43 Resp 18 11/14/18 11:43 BP 142/80 11/14/18 11:43 Pulse Ox 95 11/14/18 11:43 Intake & Output 11/13/18 11/14/18 11/14/18 18:59 06:59 18:59 Intake Total 247 237 240 Output Total 0 300 300 Balance 247 -63 -60 Weight 117.5 kg Intake: Intake, IV Titration 10 Amount Sodium Chloride 0.9% 1, 10 000 ml @ 20 mls/hr IV . Q24H DAVID Rx#:[id number] Oral 237 237 240 Output: Urine 0 300 300 Other: Voiding Method Urinal # Voids 1 - Exam Constitutional: No acute distress, conversant, pleasant Eyes: Anicteric sclerae, moist conjunctiva, no lid-lag, PERRLA ENMT: NC/AT,Oropharynx clear, no erythema, exudates Neck:Supple, FROM, no masses, or JVD, No carotid bruits; No thyromegaly Lungs: Clear to auscultation, Clear to percussion, Normal respiratory effort, no accessory muscle use Cardiovascular: Heart regular in rate and rhythm, No murmurs, gallops, or rubs no peripheral edema Abdominal: Soft Nontender, nom distended, no guarding, no rebound or rigidity, Normoactive bowel sounds No hepatomegaly, No splenomegaly, No palpable mass No abdominal wall hernia noted Skin: Normal temperature, tone, texture, turgor, No induration No subcutaneous nodules, No rash, lesions, No ulcers Extremities: L BKA with prosthetic at bedside, right lower extremity +1 DP/PT Psychiatric: Alert and oriented to person, place and time, Appropriate affect Intact judgement Neuro: Muscles Strength 5/5 in all 4 extremities, Sensation to light touch grossly present throughout, Cranial nerves II-XII grossly intact. No focal sensory deficits - Labs CBC & Chem 7: 11/12/18 18:23 11/12/18 18:23 Labs: Abnormal Lab Results - Last 24 Hours (Table) 11/12/18 11/13/18 11/13/18 Range/Units 18:23 17:08 20:12 POC Glucose (mg/dL) 280 H 241 H (75-99) mg/dL Hemoglobin A1c 12.1 H (4.0-6.0) % 11/14/18 11/14/18 Range/Units 06:31 11:48 POC Glucose (mg/dL) 197 H 258 H (75-99) mg/dL Hemoglobin A1c (4.0-6.0) % Assessment and Plan (1) Cerebrovascular accident Narrative/Plan: * Acute right basal ganglia infarction secondary to lacunar infarct from chronic small vessel ischemic disease * Continue dual antiplatelet therapy with Plavix and aspirin along with statin therapy with Lipitor * Echocardiogram showing a preserved LVEF of 55-60% with normal left atrium * Patient seen by Dr. Mckee and cleared for inpatient rehab Current Visit: Yes Status: Acute Code(s): I63.9 - CEREBRAL INFARCTION, UNSPECIFIED SNOMED Code(s): 019628536 (2) Uncontrolled type 2 diabetes mellitus with hyperglycemia Narrative/Plan: * Hemoglobin A1c 12.1 F require sliding scale coverage will increase basal insulin to 15 units subcu daily at bedtime of Levemir and increase prandial insulin to 7 units every before meals * We'll also add metformin thousand milligrams by mouth twice a day * We'll continue to monitor and continue correctional scale coverage Current Visit: Yes Status: Chronic Code(s): E11.65 - TYPE 2 DIABETES MELLITUS WITH HYPERGLYCEMIA SNOMED Code(s): 439171071 (3) Essential hypertension Narrative/Plan: * add lisinpril 10 mg PO daily for renal protection and HTN Current Visit: Yes Status: Chronic Code(s): I10 - ESSENTIAL (PRIMARY) HYPERTENSION SNOMED Code(s): 27286050 (4) Smoker within last 12 months Current Visit: Yes Status: Acute Code(s): Z87.891 - PERSONAL HISTORY OF NICOTINE DEPENDENCE SNOMED Code(s): 050365364 Plan: Disposition * Anticipated discharge tomorrow to rehab
[2018-11-14 15:26] VITALS: BMI 35.1
[2018-11-14 15:50] LABS: Appearance,Urine Clear (Clear); Bilirubin,Urine Negative (Negative); Blood,Urine Small (Negative); Color,Urine Yellow; Glucose,Urine (UA) 4+ (Negative); Ketones,Urine Negative (Negative); Leukocyte Esterase,Urine Negative (Negative); Mucus,Urine Rare /hpf; Nitrite,Urine Negative (Negative); Protein,Urine 3+ (Negative); RBC,Urine 2 /hpf (0-5); Specific Gravity,Urine 1.027 (1.001-1.035); Squamous Epithelial Cell,Urine <1 /hpf (0-4); Urobilinogen,Urine <2.0 mg/dL (<2.0); WBC,Urine 2 /hpf (0-5)
[2018-11-14 17:17] LABS: Glucose,Whole Blood 137 mg/dL (75-99)
[2018-11-14] MEDS: metFORMIN 500 MG TAB PO SCH (17:46)
[2018-11-14 20:47] LABS: Glucose,Whole Blood 196 mg/dL (75-99)
[2018-11-14] MEDS: ZOLPIDEM 10 MG TAB PO PRN (20:48)
[2018-11-14] MEDS: ATORVASTATIN 40 MG TAB PO SCH (20:48)
[2018-11-14] MEDS ORDERED: INSULIN DETEMIR (LEVEMIR) 100 UNIT/ML SYR SQ SCH (21:00)
[2018-11-15 06:35] LABS: Glucose,Whole Blood 112 mg/dL (75-99)
[2018-11-15] MEDS: INSULIN ASPART (NovoLOG) 100 UNIT/ML VIAL SQ SCH ×4 (06:48→12:21)
[2018-11-15] MEDS: metFORMIN 500 MG TAB PO SCH (07:20)
[2018-11-15] MEDS: ASPIRIN 81 MG PO SCH (08:56)
[2018-11-15] MEDS: CLOPIDOGREL 75 MG TAB PO SCH (08:56)
[2018-11-15] MEDS: HEPARIN SODIUM,PORCINE 5,000 UNIT/ML 1 ML VIAL SQ SCH (08:56)
[2018-11-15] MEDS: FAMOTIDINE 20 MG TAB PO SCH (08:56)
[2018-11-15] MEDS ORDERED: LISINOPRIL 10 MG TAB PO SCH (09:00)
--- NOTE | 2018-11-15 10:41 | P.DS ---
Providers Date of admission: 11/12/18 20:38 Expected date of discharge: 11/15/18 Attending physician: Marichuy Hartman MD Consults: 11/12/18 20:38 Consult Physician Urgent Consulting Provider: Paulino Jean-Baptiste Consult Reason/Comments: cva Do you want consulting provider notified?: Yes 11/13/18 12:56 Consult Physician Routine Consulting Provider: Baldomero Hawk Consult Reason/Comments: inpatient rehab Do you want consulting provider notified?: Yes Primary care physician: Stated None - Discharge Diagnosis(es) (1) Cerebrovascular accident (CVA) of right basal ganglia Status: Acute (2) Uncontrolled type 2 diabetes mellitus with hyperglycemia Status: Chronic (3) Essential hypertension Status: Chronic (4) Hyperlipidemia Status: Acute (5) Peripheral vascular disease Status: Acute (6) Smoker within last 12 months Status: Acute Hospital Course: The patient is a 63-year-old male the past with a history of type 2 diabetes, peripheral vascular disease with previous left BKA that presented to the ER with dizziness and left greater than right sided weakness and was admitted with concern for stroke, the patient was determined not to be a candidate for TPA as he presented outside the window for TPA. CT of the head showed no acute process, subsequent CTA of the head and neck showed no hemodynamically significant stenosis of bilateral carotid or vertebral basilar disease. Subsequent MRI revealed a subacute infarct of the right basal ganglia attributed to the [place] infarct due to chronic small vessel ischemic disease. The patient was seen by neurology and was started on dual antiplatelet therapy with Plavix and aspirin, also started on statin therapy with Lipitor as LDL was elevated at 109. The patient was found to have significant risk factors including uncontrolled type 2 diabetes with a hemoglobin A1c of approximately 12.1, Urinalysis also indicated some proteinuria attributed to his diabetic nephropathy. The patient had uncontrolled blood sugars and his diabetic regimen was adjusted to include Levemir 15 units subcu daily at bedtime and NovoLog 7 units every before meals and metformin 1000 mg twice a day was added. Lisinopril 10 mg by mouth daily was added for his blood pressure and renal protection. The patient was seen by Dr. Mckee who determined the patient good candidate for rehab. This discharge process took approximately 35minutes Focused exam neuro : CN II - XII grossly intact, left facial droop has resolved, mild pronation on left with mild left-sided weakness Patient Condition at Discharge: Good Plan - Discharge Summary New Discharge Prescriptions: New Aspirin 81 mg PO DAILY #30 chew metFORMIN HCL [Glucophage] 1,000 mg PO BID-W/MEALS #60 tab Insulin Detemir (Levemir) [Levemir] 15 unit SQ HS 30 Days #1 syr Atorvastatin [Lipitor] 40 mg PO HS #30 tab INSULIN ASPART (NovoLOG) [NovoLOG (formulary)] 7 unit SQ AC-TID 30 Days #1 vial Clopidogrel [Plavix] 75 mg PO DAILY #30 tab Lisinopril [Zestril] 10 mg PO DAILY #30 tab Discontinued INSULIN ASPART (NovoLOG) [NovoLOG (formulary)] 10 unit SQ AC-TID Discharge Medication List Aspirin 81 mg PO DAILY #30 chew 11/15/18 [Rx] Atorvastatin [Lipitor] 40 mg PO HS #30 tab 11/15/18 [Rx] Clopidogrel [Plavix] 75 mg PO DAILY #30 tab 11/15/18 [Rx] INSULIN ASPART (NovoLOG) [NovoLOG (formulary)] 7 unit SQ AC-TID 30 Days #1 vial 11/15/18 [Rx] Insulin Detemir (Levemir) [Levemir] 15 unit SQ HS 30 Days #1 syr 11/15/18 [Rx] Lisinopril [Zestril] 10 mg PO DAILY #30 tab 11/15/18 [Rx] metFORMIN HCL [Glucophage] 1,000 mg PO BID-W/MEALS #60 tab 11/15/18 [Rx] Follow up Appointment(s)/Referral(s): None,Stated [Primary Care Provider] - 1-2 days Patient Instructions/Handouts: Ischemic Stroke (DC) Activity/Diet/Wound Care/Special Instructions: inpatient rehab Discharge Disposition: TRANSFER TO SNF/F
[2018-11-15 11:50] VITALS: TEMP 98
[2018-11-15 11:51] VITALS: BP 131/66; PULSE 78
[2018-11-15 11:53] LABS: Glucose,Whole Blood 153 mg/dL (75-99)
--- NOTE | 2018-11-15 13:55 | P.PN ---
Subjective Progress Note Date: 11/15/18 Patient denies any changes in his condition. Still with very mild left-sided weakness. Denies headache. Denies slurred speech, problem with the vision or seizures. Objective - Vital Signs Vital signs: Vital Signs Temp 98 F 11/15/18 11:49 Pulse 78 11/15/18 11:49 Resp 18 11/15/18 11:49 BP 131/66 11/15/18 11:49 Pulse Ox 95 11/15/18 11:49 Intake & Output 11/14/18 11/15/18 11/15/18 18:59 06:59 18:59 Intake Total 558 Output Total 775 300 Balance -217 -300 Weight 117.5 kg 119 kg Intake: Oral 558 Output: Urine 775 300 Other: Voiding Method Urinal # Bowel Movements 1 - Exam Patient is a late middle aged male, in no distress. Speech and language functions appears normal. Left facial droopiness has resolved. Patient has mild left pronation, no drift. The strength is normal. Sensations equal. Patient has left below-knee amputation, chronic. - Labs CBC & Chem 7: 11/12/18 18:23 11/12/18 18:23 Labs: Abnormal Lab Results - Last 24 Hours (Table) 11/14/18 11/14/18 11/14/18 Range/Units 15:36 16:57 20:46 POC Glucose (mg/dL) 137 H 196 H (75-99) mg/dL Urine Protein 3+ H (Negative) Urine Glucose (UA) 4+ H (Negative) Urine Blood Small H (Negative) Urine Mucus Rare H (None) /hpf 11/15/18 11/15/18 Range/Units 06:34 11:31 POC Glucose (mg/dL) 112 H 153 H (75-99) mg/dL Urine Protein (Negative) Urine Glucose (UA) (Negative) Urine Blood (Negative) Urine Mucus (None) /hpf Assessment and Plan Assessment: * Acute ischemic infarction involving the basal ganglia on the right. CVA likely due to lacunar infarction from small vessel disease. * Diabetes * Hypertension * Cigar user * Peripheral vascular disease * History of left below-knee amputation * Noncompliance with medical follow-ups outpatient Plan: Continue dual antiplatelet medications including aspirin 81 mg and Plavix 75 mg for 3 months. Afterwards he could be placed on a single antiplatelet agent with aspirin. 2-D echo showed EF 55-60%, normal left atrial size, no embolic source. Hemoglobin A1c 12.1, indicating poorly controlled diabetes. Suggest optimize control of diabetes to target A1c <7.0 Continue Lipitor 80 mg daily. LDL 109. Target LDL <70. PT OT, speech therapy. Tobacco cessation DVT prophylaxis. Patient neurologically clear for transfer to rehab facility.
== END 2018-11-15 14:37 | DRG 65 ==
LOC: EC 17:55 → 3SCARD 20:38
PROVIDERS: ADMIT Internal Medicine; ATTEND Internal Medicine
PROC: B030ZZZ Magnetic Resonance Imaging (MRI) of Brain (ICD-10-PCS; principal; 2018-11-13)
DX: I63.81 Other cerebral infarction due to occlusion or stenosis of small artery (principal); G81.94 Hemiplegia, unspecified affecting left nondominant side; D69.6 Thrombocytopenia, unspecified; E11.21 Type 2 diabetes mellitus with diabetic nephropathy; E11.51 Type 2 diabetes mellitus with diabetic peripheral angiopathy without gangrene; E11.65 Type 2 diabetes mellitus with hyperglycemia; E78.5 Hyperlipidemia, unspecified; F17.200 Nicotine dependence, unspecified, uncomplicated; F32.9 Major depressive disorder, single episode, unspecified; I10 Essential (primary) hypertension; R29.810 Facial weakness; Z79.4 Long term (current) use of insulin; Z79.899 Other long term (current) drug therapy; Z83.3 Family history of diabetes mellitus; Z89.512 Acquired absence of left leg below knee; Z91.19 Patient's noncompliance with other medical treatment and regimen
CPT/HCPCS: 36415; 70450; 70496; 70498; 70551; 71045; 80053; 80061; 81001; 82550; 82553; 83036; 84484; 85025; 85610; 85730; 93005; 93306; 96360; 96361; 99285

== ENCOUNTER 2024-07-04 19:03 | Inpatient (IN) | payer MEDICARE ==
--- NOTE | 2024-07-04 19:38 | ED ---
General Adult HPI - General Chief complaint: Fall Stated complaint: fall Time Seen by Provider: 07/04/24 19:09 Source: patient, EMS, RN notes reviewed Mode of arrival: EMS Limitations: no limitations - History of Present Illness Initial comments: 51-year-old male presents emerged part via EMS with complaint of a fall. Is unclear when he actually fell he was last seen by neighbors 3 days ago. Friends came to check on him today and found him on the ground. Patient was noted to be covered in urine and feces. Patient states he believes he fell last 2 days. Patient has had a prior left lower extremity amputation from diabetes. Patient states that he has no localized pain but he does have notable facial swelling and facial trauma. Patient denies any neck pain, back pain denies chest pain shortness of breath denies any nausea vomiting diarrhea or constipation. Patient - Related Data Previous Rx's Medication Instructions Recorded Aspirin 81 mg PO DAILY #30 chew 11/15/18 Atorvastatin [Lipitor] 40 mg PO HS #30 tab 11/15/18 Clopidogrel [Plavix] 75 mg PO DAILY #30 tab 11/15/18 INSULIN ASPART (NovoLOG) [NovoLOG 7 unit SQ AC-TID 30 Days #1 vial 11/15/18 (formulary)] Insulin Detemir (Levemir) [Levemir] 15 unit SQ HS 30 Days #1 syr 11/15/18 lisinopriL [Zestril] 10 mg PO DAILY #30 tab 11/15/18 metFORMIN HCL [Glucophage] 1,000 mg PO BID-W/MEALS #60 tab 11/15/18 Allergies Allergy/AdvReac Type Severity Reaction Status Date / Time No Known Allergies Allergy Verified 07/04/24 19:17 Review of Systems ROS Statement: Those systems with pertinent positive or pertinent negative responses have been documented in the HPI. ROS Other: All systems not noted in ROS Statement are negative. Past Medical History Past Medical History: Diabetes Mellitus History of Any Multi-Drug Resistant Organisms: None Reported Past Surgical History: Unable to Obtain Additional Past Surgical History / Comment(s): otho surgery to neck, metal floresita in left hip, left BKA with prosestic Past Psychological History: Depression Past Alcohol Use History: None Reported Past Drug Use History: None Reported - Past Family History Father Family Medical History: Diabetes Mellitus Mother Family Medical History: Unable to Obtain General Exam Limitations: no limitations General appearance: alert, in no apparent distress Head exam: Present: atraumatic, normocephalic. Absent: normal inspection (Facial swelling right) Eye exam: Present: PERRL, EOMI, conjunctival injection, periorbital swelling, periorbital tenderness. Absent: normal appearance, scleral icterus ENT exam: Present: normal exam, normal oropharynx, mucous membranes moist Neck exam: Present: normal inspection, full ROM. Absent: tenderness, meningismus, lymphadenopathy Respiratory exam: Present: normal lung sounds bilaterally. Absent: respiratory distress, wheezes, rales, rhonchi, stridor Cardiovascular Exam: Present: regular rate, normal rhythm, normal heart sounds. Absent: systolic murmur, diastolic murmur, rubs, gallop, clicks GI/Abdominal exam: Present: soft, normal bowel sounds. Absent: distended, tenderness, guarding, rebound, rigid Extremities exam: Present: other (Left lower extremity amputation) Course Vital Signs 07/04/24 07/04/24 19:07 20:25 Temperature 97.9 F Pulse Rate 88 116 H Respiratory 18 18 Rate Blood Pressure 95/57 93/57 O2 Sat by Pulse 97 95 Oximetry EKG Findings - EKG Comments: EKG Findings:: EKG performed at 19: 41 sinus tachycardia with a rate of 127 SD 167 QRS 141 QT/QTc 350/425 - EKG Results: EKG: interpreted by YOEL Medical Decision Making - Medical Decision Making Was pt. sent in by a medical professional or institution ([facility], ADMISSIONS CONSULTANT, urgent care, hospital, or senior care...) When possible be specific @ -No Did you speak to anyone other than the patient for history (EMS, parent, family, police, friend...)? What history was obtained from this source @ -No Did you review nursing and triage notes (agree or disagree)? Why? @ -I reviewed and agree with nursing and triage notes Were old charts reviewed (outside hosp., previous admission, EMS record, old EKG, old radiological studies, urgent care reports/EKG's, senior care records)? Report findings @ -No old charts were reviewed Differential Diagnosis (chest pain, altered mental status, abdominal pain women, abdominal pain men, vaginal bleeding, weakness, fever, dyspnea, syncope, headache, dizziness, GI bleed, back pain, seizure, CVA, palpatations, mental health, musculoskeletal)? @ -Differential Weakness: Hypoglycemia, shock, sepsis, hyponatremia, anemia, infection, ID, ETOH, adverse medicine reaction, overdose, stroke, this is not meant to be an all-inclusive list. EKG interpreted by me (3pts min.). @ -As above X-rays interpreted by me (1pt min.). @ -Chest x-ray 1 view shows no acute cardiopulmonary process CT interpreted by me (1pt min.). @ -CT brain, C-spine no acute intracranial mass, mass effect or cervical fracture CT facial bones showing facial edema no acute fracture U/S interpreted by me (1pt. min.). @ -None done What testing was considered but not performed or refused? (CT, X-rays, U/S, labs)? Why? @ -None What meds were considered but not given or refused? Why? @ -None Did you discuss the management of the patient with other professionals (professionals i.e. , PA, ADMISSIONS CONSULTANT, lab, RT, psych nurse, social sciences lecturer, personal care home administrator, teacher, transit authority police officer, onsite case manager)? Give summary @ -Sound physician for admission given prolonged down after a fall, acute kidney injury with elevated troponin. Was smoking cessation discussed for >3mins.? @ -No Was critical care preformed (if so, how long)? @ -No Were there social determinants of health that impacted care today? How? (Homelessness, low income, unemployed, alcoholism, drug addiction, transpo rtation, low edu. Level, literacy, decrease access to med. care, mcc, rehab)? @ -No Was there de-escalation of care discussed even if they declined (Discuss DNR or withdrawal of care, Hospice)? DNR status @ -No What co-morbidities impacted this encounter? (DM, HTN, Smoking, COPD, CAD, Cancer, CVA, ARF, Chemo, Hep., AIDS, mental health diagnosis, sleep apnea, morbid obesity)? @ -Diabetes Was patient admitted / discharged? Hospital course, mention meds given and route, prescriptions, significant lab abnormalities, going to OR and other pertinent info. @ -Admitted patient presented after fall mammogram for 1 to 2 days unclear. Patient is acutely dehydrated, elevated troponin without EKG changes patient will maintain on IV fluids repeat laboratory studies. Undiagnosed new problem with uncertain prognosis? @ -No Drug Therapy requiring intensive monitoring for toxicity (Heparin, Nitro, Insul in, Cardizem)? @ -No Were any procedures done? @ -No Diagnosis/symptom? @ -Fall, weakness, elevated troponin, acute kidney injury Acute, or Chronic, or Acute on Chronic? @ -Acute Uncomplicated (without systemic symptoms) or Complicated (systemic symptoms)? @ -Complicated Side effects of treatment? @ -No Exacerbation, Progression, or Severe Exacerbation? @ -No Poses a threat to life or bodily function? How? (Chest pain, USA, ID, pneumonia, PE, COPD, DKA, ARF, appy, cholecystitis, CVA, Diverticulitis, Homicidal, Suicidal, threat to staff... and all critical care pts) @ -No - Lab Data Result diagrams: 07/04/24 19:46 07/04/24 19:46 Lab Results 07/04/24 07/04/24 07/04/24 Range/Units 19:46 19:46 19:46 WBC 13.2 H (3.8-10.6) k/uL RBC 5.44 (4.30-5.90) m/uL Hgb 17.9 H (13.0-17.5) gm/dL Hct 55.3 H (39.0-53.0) % MCV 101.6 H (80.0-100.0) fL MCH 32.9 (25.0-35.0) pg MCHC 32.3 (31.0-37.0) g/dL RDW 12.3 (11.5-15.5) % Plt Count 211 (150-450) k/uL MPV 9.3 Neutrophils % 87 % Lymphocytes % 7 % Monocytes % 4 % Eosinophils % 1 % Basophils % 0 % Neutrophils # 11.4 H (1.3-7.7) k/uL Lymphocytes # 0.9 L (1.0-4.8) k/uL Monocytes # 0.6 (0-1.0) k/uL Eosinophils # 0.1 (0-0.7) k/uL Basophils # 0.0 (0-0.2) k/uL Sodium 141 (137-145) mmol/L Potassium 4.2 (3.5-5.1) mmol/L Chloride 101 (98-107) mmol/L Carbon Dioxide 26 (22-30) mmol/L Anion Gap 14 mmol/L BUN 84 H (9-20) mg/dL Creatinine 1.94 H (0.66-1.25) mg/dL Est GFR (CKD-EPI)AfAm 40 (>60 ml/min/1.73 sqM) Est GFR (CKD-EPI)NonAf 35 (>60 ml/min/1.73 sqM) Glucose 321 H (74-99) mg/dL Plasma Lactic Acid Robert 3.2 H* (0.7-2.0) mmol/L Calcium 9.6 (8.4-10.2) mg/dL Phosphorus 4.7 H (2.5-4.5) mg/dL Magnesium 2.0 (1.6-2.3) mg/dL Total Bilirubin 1.0 (0.2-1.3) mg/dL AST 24 (17-59) U/L ALT 21 (4-49) U/L Alkaline Phosphatase 84 (38-126) U/L Creatine Kinase 346 H (55-170) U/L Troponin I (0.000-0.034) ng/mL Total Protein 6.5 (6.3-8.2) g/dL Albumin 3.4 L (3.5-5.0) g/dL Urine Color Urine Appearance (Clear) Urine pH (5.0-8.0) Ur Specific Aneta (1.001-1.035) Urine Protein (Negative) Urine Glucose (UA) (Negative) Urine Ketones (Negative) Urine Blood (Negative) Urine Nitrite (Negative) Urine Bilirubin (Negative) Urine Urobilinogen (<2.0) mg/dL Ur Leukocyte Esterase (Negative) Urine RBC (0-5) /hpf Urine WBC (0-5) /hpf Hyaline Casts (0-2) /lpf Granular Casts (0) /lpf Acetone, Qual Negative (Negative) 07/04/24 07/04/24 Range/Units 19:46 20:58 WBC (3.8-10.6) k/uL RBC (4.30-5.90) m/uL Hgb (13.0-17.5) gm/dL Hct (39.0-53.0) % MCV (80.0-100.0) fL MCH (25.0-35.0) pg MCHC (31.0-37.0) g/dL RDW (11.5-15.5) % Plt Count (150-450) k/uL MPV Neutrophils % % Lymphocytes % % Monocytes % % Eosinophils % % Basophils % % Neutrophils # (1.3-7.7) k/uL Lymphocytes # (1.0-4.8) k/uL Monocytes # (0-1.0) k/uL Eosinophils # (0-0.7) k/uL Basophils # (0-0.2) k/uL Sodium (137-145) mmol/L Potassium (3.5-5.1) mmol/L Chloride (98-107) mmol/L Carbon Dioxide (22-30) mmol/L Anion Gap mmol/L BUN (9-20) mg/dL Creatinine (0.66-1.25) mg/dL Est GFR (CKD-EPI)AfAm (>60 ml/min/1.73 sqM) Est GFR (CKD-EPI)NonAf (>60 ml/min/1.73 sqM) Glucose (74-99) mg/dL Plasma Lactic Acid Robert (0.7-2.0) mmol/L Calcium (8.4-10.2) mg/dL Phosphorus (2.5-4.5) mg/dL Magnesium (1.6-2.3) mg/dL Total Bilirubin (0.2-1.3) mg/dL AST (17-59) U/L ALT (4-49) U/L Alkaline Phosphatase (38-126) U/L Creatine Kinase (55-170) U/L Troponin I 0.059 H* (0.000-0.034) ng/mL Total Protein (6.3-8.2) g/dL Albumin (3.5-5.0) g/dL Urine Color Yellow Urine Appearance Clear (Clear) Urine pH 5.5 (5.0-8.0) Ur Specific Aneta 1.022 (1.001-1.035) Urine Protein 2+ H (Negative) Urine Glucose (UA) 1+ H (Negative) Urine Ketones Negative (Negative) Urine Blood Negative (Negative) Urine Nitrite Negative (Negative) Urine Bilirubin Negative (Negative) Urine Urobilinogen <2.0 (<2.0) mg/dL Ur Leukocyte Esterase Negative (Negative) Urine RBC 2 (0-5) /hpf Urine WBC 1 (0-5) /hpf Hyaline Casts 1 (0-2) /lpf Granular Casts 6 (0) /lpf Acetone, Qual (Negative) Disposition Clinical Impression: Fall, Weakness, Elevated troponin, Dehydration Disposition: ADMITTED IP TO THIS HOSP Condition: Fair Referrals: [facility],Clinic [Primary Care Provider] - 1-2 days Time of Disposition: 21:38
[2024-07-04] MEDS: SODIUM CHLORIDE 0.9% 1,000 ML IV ONE (19:47)
[2024-07-04] MEDS: SODIUM CHLORIDE 0.9% 500 ML 500 ML IV ONE (19:47)
--- NOTE | 2024-07-04 19:53 | XR ---
EXAMINATION TYPE: XR chest 1V DATE OF EXAM: 07/04/2024 COMPARISON: Chest x-ray November 12, 2018 CLINICAL INDICATION: Male, 69 years old with history of fall; pain TECHNIQUE: Single frontal view of the chest is obtained. FINDINGS: There is no focal air space opacity, pleural effusion, or pneumothorax seen. Low lung volu mes and cardiomegaly are redemonstrated. The osseous structures are intact. IMPRESSION: No acute pulmonary process. [facility], , 07/04/2024 7:50 PM
--- NOTE | 2024-07-04 20:00 | CT ---
EXAMINATION TYPE: CT brain cspine wo con, CT facial bones wo con DATE OF EXAM: 07/04/2024 COMPARISON: CT brain November 12, 2018 HISTORY: Pain, fall, ams. CT DLP: Combined DLP of 1159.6 mGycm. Automated Exposure Control for Dose Reduction was Utilized. TECHNIQUE: CT scan of the head , facial bones, and cervical spine are performed without contrast. FINDINGS: There is no acute intracranial hemorrhage or midline shift identified. Mild to moderate v entricular and sulcal prominence is redemonstrated. Mild low-attenuation in the periventricular white matter. The calvarium is intact. The mandible is intact. Temporomandibular joints are maintained bilaterally. Zygomatic arches are int act. The nasal bones are intact. The orbital floors and german are intact. Bilateral aphakia is seen. There is focal mild/moderate soft tissue swelling over the right globe. This extends superiorly over the right frontal sinus. Intraconal fat is preserved. The pterygoid plates are intact. Mild mucosal t hickening or dependent fluid in the right maxillary sinus. There is [id number] patchy opacifica tion of the right ethmoid sinuses. Mucosal thickening in the right maxillary antrum is present. Lack of dentition is noted. Cervical spine is visualized in its entirety from C1 through upper thoracic levels and demonstrates s traightened alignment without evidence of acute fracture or dislocation. Prevertebral soft tissue ap pears within normal limits. The C1-C2 articulation is within normal limits on the coronal images. V ertebral body heights are maintained. Moderate to severe disc space narrowing at C5-C6 and C6-C7 leve ls is present. Axial images show multilevel uncovertebral and facet degenerative changes bilaterally more prominent on the left side. Thyroid gland appears within normal limits. Upper lungs show no pneu mothorax. IMPRESSION: 1. There is no acute fracture or dislocation evident in the cervical spine. 2. No acute intracranial hemorrhage or midline shift is seen. 3. No acute displaced facial bone fracture. Mild/moderate focal soft tissue swelling and hematoma ove r the right orbit is noted extending superiorly. [facility], , 07/04/2024 7:57 PM
[2024-07-04 20:01] LABS: Basophils % (A) 0 %; Eosinophils # (A) 0.1 k/uL (0-0.7); Eosinophils % (A) 1 %; HGB 17.9 gm/dL (13.0-17.5); Lymphocytes # (A) 0.9 k/uL (1.0-4.8); Lymphocytes % (A) 7 %; MCH 32.9 pg (25.0-35.0); MCHC 32.3 g/dL (31.0-37.0); MCV 101.6 fL (80.0-100.0); Mean Platelet Volume 9.3; Monocytes # (A) 0.6 k/uL (0-1.0); Monocytes % (A) 4 %; Neutrophils # (A) 11.4 k/uL (1.3-7.7); Neutrophils % (A) 87 %; Platelet Count 211 k/uL (150-450); RBC 5.44 m/uL (4.30-5.90); RDW 12.3 % (11.5-15.5); WBC 13.2 k/uL (3.8-10.6)
[2024-07-04 20:16] LABS: HCT 55.3 % (39.0-53.0)
[2024-07-04 20:17] LABS: ALT 21 U/L (4-49); AST 24 U/L (17-59); African American GFR (CKD) 40 (>60 ml/min/1.73 sqM); Albumin 3.4 g/dL (3.5-5.0); Alkaline Phosphatase 84 U/L (38-126); Anion Gap 14 mmol/L; Blood Urea Nitrogen 84 mg/dL (9-20); Calcium 9.6 mg/dL (8.4-10.2); Carbon Dioxide 26 mmol/L (22-30); Chloride 101 mmol/L (98-107); Creatine Kinase 346 U/L (55-170); Glucose 321 mg/dL (74-99); Non-African American GFR(CKD) 35 (>60 ml/min/1.73 sqM); Phosphorus 4.7 mg/dL (2.5-4.5); Potassium 4.2 mmol/L (3.5-5.1); Sodium 141 mmol/L (137-145); Total Protein 6.5 g/dL (6.3-8.2)
[2024-07-04 21:26] LABS: Appearance,Urine Clear (Clear); Bilirubin,Urine Negative (Negative); Blood,Urine Negative (Negative); Color,Urine Yellow; Glucose,Urine (UA) 1+ (Negative); Granular Casts,Urine 6 /lpf (0); Hyaline Casts,Urine 1 /lpf (0-2); Ketones,Urine Negative (Negative); Leukocyte Esterase,Urine Negative (Negative); Nitrite,Urine Negative (Negative); PH, Urine 5.5 (5.0-8.0); Protein,Urine 2+ (Negative); RBC,Urine 2 /hpf (0-5); Specific Gravity,Urine 1.022 (1.001-1.035); Urobilinogen,Urine <2.0 mg/dL (<2.0); WBC,Urine 1 /hpf (0-5)
[2024-07-04] MEDS ORDERED: NALOXONE 0.4 MG/ML 1 ML VIAL IV PRN (21:41)
[2024-07-04] MEDS: SODIUM CHLORIDE 0.9% 1,000 ML IV SCH (21:52)
--- NOTE | 2024-07-04 23:38 | P.HPIM ---
History of Present Illness H&P Date: 07/04/24 Patient is a 69-year-old male with diabetes, hypertension, history of CVA patient is poor historian , poor insight presents to the ED with chief complaint of fall. Patient states he slipped and fell and then he hit his head, but did not pass out. He states that he was down for 6 weeks. Patient's friends came to visit and found him on the ground and called EMS. Per ED note patient was covered in urine and feces. Patient denies any precipitating factors to the fall including lightheadedness, dizziness, vision changes, chest pain, shortness of breath, or neck pain. He also denies any recent sick contacts, nausea, vomiting, diarrhea. ED documentation reviewed. Patient received fluids bolus in the ER. Chart review revealed prior admission for CVA in 2019. Vitals on admission temperature 98, heart rate 88 bpm, respiratory rate 18, blood pressure 95/57, O2 saturation 95% on 2 L nasal cannula EKG independently interpreted as sinus tachycardia with ventricular rate of 127 bpm and QTc of 425 ms CXR shows no acute pulmonary process CT of head showed no acute intracranial hemorrhage or midline shift CT of cervical spine showed no acute fracture or dislocation CT of facial bones showed no acute displaced fracture, mild to moderate swelling and hematoma over the right orbit Labs on admission show WBCs 13.2 with left shift, hemoglobin 17.9, MCV 101.6 platelets 211. Sodium 141, potassium 4.2, chloride 101, bicarb 26, BUN 84, creatinine 1.94, glucose 321. Lactic acid 3.2. Calcium 9.6. Phosphorus 4.7. Magnesium 2.0. AST 24, ALT 21, ALP 84. CK 346. Troponin 0.059. UA positive for protein and glucose. Review of systems: Pertinent positives and negatives as discussed in HPI, a complete review of systems was performed and all other systems are negative. PMH: Diabetes, hypertension, history of CVA PSH: Left BKA Allergies: NKDA Social history: Tobacco: Black and mild cigars Alcohol: None Recreational drugs: None Travel: None Sick contacts: None Physical examination: Vital signs reviewed General: nontoxic, no distress, appears at stated age Derm: warm, dry, intact Head: Right-sided facial swelling noted without any lacerations Eyes: anicteric sclera Mouth: no lip lesion, mucus membranes moist Cardiovascular: S1 S2 reg, no murmur Lungs: CTA bilateral, no rhonchi, no rales, no accessory muscle use Abdominal: soft, non-tender to palpation, nondistended Extremities: Left BKA, minor laceration noted on right knee Neuro: Alert, Oriented to person, time but not place, Gross neurological examination did not reveal any focal deficits. Cranial nerves II to XII grossly intact. Bilateral upper and lower extremity muscle strength intact and sensation intact. Psych: well appearing, appropriate affect Assessment/Plan: 69-year-old male with past medical history of diabetes, hypertension, history of CVA who presented to the ED with chief complaint of fall. Further evaluation revealed mild leukocytosis, macrocytosis, ADRIAN, and elevated troponin. Patient will be admitted to medicine service for further evaluation. Active: Mechanical fall in the setting of hyperglycemia EKG independently interpreted as sinus tachycardia with ventricular rate of 127 bpm and QTc of 425 ms CXR shows no acute pulmonary process CT of head showed no acute intracranial hemorrhage or midline shift CT of cervical spine showed no acute fracture or dislocation CT of facial bones showed no acute displaced fracture, mild to moderate swelling and hematoma over the right orbit Fall precautions Continue to monitor vital signs PT/OT ADRIAN possibly secondary to prerenal ATN BUN 84, creatinine 1.94 CK 346, lactate 3.2 Continue IV fluids of 0.9% normal saline at 150 mL/h Repeat CMP in a.m. Trend lactate Consult nephrology monitor urine output Elevated troponin at 0.059 in the absence of chest pain, likely secondary to ADRIAN/ demand Trend troponin Cardiac monitoring Obtain echocardiogram Consult cardiology Mild leukocytosis with left shift without source of infection Patient remains afebrile Repeat CBC in a.m. Monitor vitals Monitor for signs of sepsis Macrocytosis hemoglobin 17.9, MCV 101.6 Repeat CBC in a.m. Obtain B12 Obtain folate Chronic: Hypertension Continue lisinopril 10 mg daily Insulin-dependent type 2 diabetes mellitus Hold metformin Continue Levemir 15 units SQ at bedtime Moderate insulin sliding scale Glucose checks per ACHS protocol Hypoglycemia precautions Obtain A1c History of CVA Continue aspirin 81 mg daily Continue atorvastatin 40 mg p.o. at bedtime Continue Plavix 75 mg daily F: 0.9% normal saline at 150 mL/h E: Replete as needed N: Consistent carb A: Fall precautions DVT prophylaxis: Lovenox 40 mg subcu daily The patient is admitted with an anticipated more than 2 midnight stay for evaluation of mechanical fall and ADRIAN. CODE STATUS: Full code Discussed with: Patient Anticipated discharge place: Home I have seen and evaluated the patient today. I Discussed the case with the resident and agree with the resident's findings I edited the assessment and pl an as necessary as documented in the resident's note. Past Medical History Past Medical History: Diabetes Mellitus History of Any Multi-Drug Resistant Organisms: None Reported Past Surgical History: Unable to Obtain Additional Past Surgical History / Comment(s): otho surgery to neck, metal floresita in left hip, left BKA with prosestic Past Psychological History: Depression Past Alcohol Use History: None Reported Past Drug Use History: None Reported - Past Family History Father Family Medical History: Diabetes Mellitus Mother Family Medical History: Unable to Obtain Medications and Allergies Home Medications Medication Instructions Recorded Confirmed Type Aspirin 81 mg PO DAILY #30 chew 11/15/18 Rx Atorvastatin [Lipitor] 40 mg PO HS #30 tab 11/15/18 Rx Clopidogrel [Plavix] 75 mg PO DAILY #30 tab 11/15/18 Rx INSULIN ASPART (NovoLOG) [NovoLOG 7 unit SQ AC-TID 30 Days #1 vial 11/15/18 Rx (formulary)] Insulin Detemir (Levemir) [Levemir] 15 unit SQ HS 30 Days #1 syr 11/15/18 Rx lisinopriL [Zestril] 10 mg PO DAILY #30 tab 11/15/18 Rx metFORMIN HCL [Glucophage] 1,000 mg PO BID-W/MEALS #60 tab 11/15/18 Rx Allergies Allergy/AdvReac Type Severity Reaction Status Date / Time No Known Allergies Allergy Verified 07/04/24 19:17 Physical Exam Vitals: Vital Signs Temp Pulse Resp BP Pulse Ox 07/04/24 21:43 109 H 18 112/73 97 07/04/24 20:25 116 H 18 93/57 95 07/04/24 19:07 97.9 F 88 18 95/57 97 Intake and Output 07/04/24 07/04/24 07/04/24 06:59 14:59 22:59 Other: Weight 113.398 kg Results CBC & Chem 7: 07/04/24 19:46 07/04/24 19:46 Labs: Abnormal Lab Results - Last 24 Hours (Table) 07/04/24 07/04/24 07/04/24 Range/Units 19:46 19:46 19:46 WBC 13.2 H (3.8-10.6) k/uL Hgb 17.9 H (13.0-17.5) gm/dL Hct 55.3 H (39.0-53.0) % MCV 101.6 H (80.0-100.0) fL Neutrophils # 11.4 H (1.3-7.7) k/uL Lymphocytes # 0.9 L (1.0-4.8) k/uL BUN 84 H (9-20) mg/dL Creatinine 1.94 H (0.66-1.25) mg/dL Glucose 321 H (74-99) mg/dL Plasma Lactic Acid Robert 3.2 H* (0.7-2.0) mmol/L Phosphorus 4.7 H (2.5-4.5) mg/dL Creatine Kinase 346 H (55-170) U/L Troponin I (0.000-0.034) ng/mL Albumin 3.4 L (3.5-5.0) g/dL Urine Protein (Negative) Urine Glucose (UA) (Negative) 07/04/24 07/04/24 Range/Units 19:46 20:58 WBC (3.8-10.6) k/uL Hgb (13.0-17.5) gm/dL Hct (39.0-53.0) % MCV (80.0-100.0) fL Neutrophils # (1.3-7.7) k/uL Lymphocytes # (1.0-4.8) k/uL BUN (9-20) mg/dL Creatinine (0.66-1.25) mg/dL Glucose (74-99) mg/dL Plasma Lactic Acid Robert (0.7-2.0) mmol/L Phosphorus (2.5-4.5) mg/dL Creatine Kinase (55-170) U/L Troponin I 0.059 H* (0.000-0.034) ng/mL Albumin (3.5-5.0) g/dL Urine Protein 2+ H (Negative) Urine Glucose (UA) 1+ H (Negative)
[2024-07-04 23:44] LABS: Glucose,Whole Blood 270 mg/dL (70-110)
[2024-07-04] MEDS: INSULIN DETEMIR (LEVEMIR) 100 UNIT/ML SYR SQ SCH (23:47)
[2024-07-05] MEDS ORDERED: DEXTROSE 50% SYRINGE 50 ML IVP PRN ×2 (00:24)
[2024-07-05 04:34] LABS: Basophils % (A) 0 %; Eosinophils # (A) 0.1 k/uL (0-0.7); Eosinophils % (A) 1 %; HCT 49.6 % (39.0-53.0); HGB 16.1 gm/dL (13.0-17.5); Lymphocytes # (A) 1.1 k/uL (1.0-4.8); Lymphocytes % (A) 10 %; MCHC 32.4 g/dL (31.0-37.0); MCV 98.8 fL (80.0-100.0); Mean Platelet Volume 9.9; Monocytes # (A) 0.5 k/uL (0-1.0); Monocytes % (A) 5 %; Neutrophils # (A) 9.7 k/uL (1.3-7.7); Neutrophils % (A) 84 %; Platelet Count 198 k/uL (150-450); RBC 5.02 m/uL (4.30-5.90); RDW 12.7 % (11.5-15.5); WBC 11.5 k/uL (3.8-10.6)
[2024-07-05 07:35] LABS: ALT 21 U/L (4-49); AST 41 U/L (17-59); African American GFR (CKD) 45 (>60 ml/min/1.73 sqM); Albumin 2.9 g/dL (3.5-5.0); Alkaline Phosphatase 71 U/L (38-126); Anion Gap 9 mmol/L; Blood Urea Nitrogen 86 mg/dL (9-20); Calcium 8.8 mg/dL (8.4-10.2); Carbon Dioxide 28 mmol/L (22-30); Chloride 104 mmol/L (98-107); Glucose 212 mg/dL (74-99); Non-African American GFR(CKD) 39 (>60 ml/min/1.73 sqM); Potassium 3.9 mmol/L (3.5-5.1); Sodium 141 mmol/L (137-145); Total Bilirubin 0.7 mg/dL (0.2-1.3); Total Protein 5.6 g/dL (6.3-8.2)
[2024-07-05 07:46] LABS: Glucose,Whole Blood 178 mg/dL (70-110)
[2024-07-05] MEDS ORDERED: lisinopriL 10 MG TAB PO SCH (09:00)
[2024-07-05] MEDS: INSULIN ASPART (NovoLOG) 100 UNIT/ML VIAL SQ SCH (09:13)
[2024-07-05] MEDS: ENOXAPARIN 40 MG/0.4 ML SYRINGE SQ SCH (09:19)
[2024-07-05] MEDS: CLOPIDOGREL 75 MG TAB PO SCH (09:19)
[2024-07-05] MEDS: METOPROLOL TARTRATE 25 MG TAB PO SCH (09:19)
[2024-07-05] MEDS: ASPIRIN 81 MG PO SCH (09:19)
--- NOTE | 2024-07-05 10:08 | P.CRDCN ---
History of Present Illness History of present illness: HISTORY OF PRESENT ILLNESS: This is a 69-year-old male with a past medical history significant for hypertension, diabetes, hyperlipidemia, and CVA. 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 We have been asked to see the patient in consultation for bated troponins. Patient examined at the bedside emergency room. Patient presented to the hospital after he was found laying on his floor in his apartment by a friend. Patient states he was laying on the floor for 6 weeks, however actual time down is unknown. The patient states that he tripped and denies having any syncope. The patient currently denies any chest pain or pressure. He denies any shortness of breath. Patient was found to have acute kidney injury and is receiving IV fluids. Patient does have a history of CVA back in 2019. He denies any known history of atrial fibrillation. Telemetry reveals sinus mechanism with significant ectopy. Blood pressure stable. He reports a family history of CAD in his dad but states unsure at what age. He is a current smoker. He denies any alcohol use. Denies any drug use including marijuana DIAGNOSTICS: - EKG reveals sinus mechanism with PACs. - Chest xray negative for acute process - Laboratory data: WBC 11.5. Hemoglobin 16.1. Platelet count 198. Sodium 141. Potassium 3.9. BUN 86. Creatinine 1.78. Creatinine kinase 346. Troponin 0.059. 0.064. 0.068. - Current home cardiac medications include lisinopril 10 mg daily, Plavix 75 mg daily, Lipitor 40 mg at night. - Most recent echocardiogram obtained in 2019 reveals ejection fraction 55 to 60%, trace MR, trace TR. - Cardiac catheterization history: Patient denies REVIEW OF SYSTEMS: At the time of my exam: CONSTITUTIONAL: Denies fever or chills. HEENT: Denies blurred vision, vision changes, or eye pain. Denies hemoptysis CARDIOVASCULAR: Denies chest pain. Denies orthopnea. Denies PND. Denies pa lpitations RESPIRATORY: Denies shortness of breath. GASTROINTESTINAL: Denies abdominal pain. Denies nausea or vomiting. HEMATOLOGIC: Denies bleeding disorders. GENITOURINARY: Denies any blood in urine. SKIN: Denies pruitis. Denies rash. PHYSICAL EXAM: VITAL SIGNS: Reviewed. GENERAL: Well-developed in no acute distress. HEENT: Head is normocephalic. Pupils are equal, round. Sclerae anicteric. Mucous membranes of the mouth are moist. Neck supple. No JVD or thyromegaly LUNGS: Respirations even and unlabored. Lungs essentially clear to auscultation bilaterally. HEART: Irregular rate and rhythm. S1 and S2 heard. Systolic murmur noted ABDOMEN: Soft. Nondistended. Nontender. EXTREMITIES: Normal range of motion. No clubbing or cyanosis. Peripheral pulses intact. Left BKA. NEUROLOGIC: Awake and alert. Oriented x 3. ASSESSMENT: Status post mechanical fall without evidence of syncope Acute kidney injury Elevated troponins, flat, likely secondary to poor renal clearance, no evidence of myocardial injury or ischemia History of left BKA History of hypertension History of CVA Diabetes Nicotine/tobacco dependence PLAN: An acute coronary but has been ruled out Obtain 2D echo to assess cardiac structure and function Resume home cardiac medications Continue IV fluids. Monitor kidney function. Lisinopril remains on hold secondary to ADRIAN Bedside telemetry reveals sinus mechanism with significant ectopy. High suspicion that patient has history of atrial fibrillation, however no clear afib at this time. Recommend outpatient event monitor Recommend outpatient stress testing Continue telemetry monitoring Further recommendations pending patient course Nurse practitioner note has been reviewed by physician. Signing provider agrees with the documented findings, assessment, and plan of care documented by POLYMER ENGINEER as a scribe. Past Medical History Past Medical History: Diabetes Mellitus History of Any Multi-Drug Resistant Organisms: None Reported Past Surgical History: Unable to Obtain Additional Past Surgical History / Comment(s): otho surgery to neck, metal floresita in left hip, left BKA with prosestic Past Psychological History: Depression Past Alcohol Use History: None Reported Past Drug Use History: None Reported - Past Family History Father Family Medical History: Diabetes Mellitus Mother Family Medical History: Unable to Obtain Medications and Allergies Home Medications Medication Instructions Recorded Confirmed Type Atorvastatin [Lipitor] 40 mg PO HS #30 tab 11/15/18 07/05/24 Rx Clopidogrel [Plavix] 75 mg PO DAILY #30 tab 11/15/18 07/05/24 Rx lisinopriL [Zestril] 10 mg PO DAILY #30 tab 11/15/18 07/05/24 Rx metFORMIN HCL [Glucophage] 1,000 mg PO BID-W/MEALS #60 tab 11/15/18 07/05/24 Rx Pioglitazone [Actos] 30 mg PO DAILY 07/05/24 07/05/24 History SITagliptin [Zituvio] 100 mg PO DAILY 07/05/24 07/05/24 History traZODone HCL [Desyrel] 100 mg PO HS 07/05/24 07/05/24 History Allergies Allergy/AdvReac Type Severity Reaction Status Date / Time bee venom protein (honey bee) Allergy PER [facility] Verified 07/05/24 07:44 DEER FLY BITES Allergy PER [facility] Uncoded 07/05/24 07:44 Physical Exam Vitals: Vital Signs Temp Pulse Resp BP Pulse Ox 07/05/24 07:39 109 H 20 105/52 96 07/05/24 06:02 81 18 121/59 96 07/05/24 02:33 98.7 F 115 H 22 93/49 94 L 07/05/24 00:00 112 H 18 96/53 98 07/04/24 23:30 110 H 15 114/58 98 07/04/24 21:43 109 H 18 112/73 97 07/04/24 20:25 116 H 18 93/57 95 07/04/24 19:07 97.9 F 88 18 95/57 97 Intake and Output 07/04/24 07/05/24 07/05/24 22:59 06:59 14:59 Other: Weight 113.398 kg Results 07/05/24 04:01 07/05/24 07:07 Cardiac Enzymes 07/04/24 07/04/24 07/04/24 Range/Units 19:46 19:46 23:51 AST 24 (17-59) U/L Troponin I 0.059 H* 0.064 H* (0.000-0.034) ng/mL 07/05/24 07/05/24 Range/Units 03:16 07:07 AST 41 (17-59) U/L Troponin I 0.068 H* (0.000-0.034) ng/mL CBC 07/04/24 07/05/24 Range/Units 19:46 04:01 WBC 13.2 H 11.5 H (3.8-10.6) k/uL RBC 5.44 5.02 (4.30-5.90) m/uL Hgb 17.9 H 16.1 (13.0-17.5) gm/dL Hct 55.3 H 49.6 (39.0-53.0) % Plt Count 211 198 (150-450) k/uL Comprehensive Metabolic Panel 07/04/24 07/05/24 Range/Units 19:46 07:07 Sodium 141 141 (137-145) mmol/L Potassium 4.2 3.9 (3.5-5.1) mmol/L Chloride 101 104 (98-107) mmol/L Carbon Dioxide 26 28 (22-30) mmol/L BUN 84 H 86 H (9-20) mg/dL Creatinine 1.94 H 1.78 H (0.66-1.25) mg/dL Glucose 321 H 212 H (74-99) mg/dL Calcium 9.6 8.8 (8.4-10.2) mg/dL AST 24 41 (17-59) U/L ALT 21 21 (4-49) U/L Alkaline Phosphatase 84 71 (38-126) U/L Total Protein 6.5 5.6 L (6.3-8.2) g/dL Albumin 3.4 L 2.9 L (3.5-5.0) g/dL Current Medications Generic Name Dose Route Start Last Admin Trade Name Freq PRN Reason Stop Dose Admin Acetaminophen 650 mg 07/04/24 21:41 Acetaminophen Tab 325 Mg Tab PO Q6HR PRN Mild Pain or Fever > 100.5 Aspirin 81 mg 07/05/24 09:00 Aspirin 81 Mg PO DAILY [facility] Atorvastatin Calcium 40 mg 07/05/24 21:00 Atorvastatin 40 Mg Tab PO HS [facility] Clopidogrel Bisulfate 75 mg 07/05/24 09:00 Clopidogrel 75 Mg Tab PO DAILY [facility] Dextrose/Water 25 ml 07/05/24 00:24 Dextrose 50% Syringe 50 Ml IVP PER PROTOCOL PRN Hypoglycemia Protocol Dextrose/Water 50 ml 07/05/24 00:24 Dextrose 50% Syringe 50 Ml IVP PER PROTOCOL PRN Hypoglycemia Protocol Enoxaparin Sodium 40 mg 07/05/24 09:00 Enoxaparin 40 Mg/0.4 Ml Syringe SQ DAILY [facility] Sodium Chloride 1,000 mls @ 150 mls/hr 07/04/24 21:45 07/05/24 06:40 Saline 0.9% IV 150 mls/hr .Q6H40M [facility] Administration Insulin Aspart 0 unit 07/05/24 07:30 Insulin Aspart (Novolog) 100 Unit/Ml Vial SQ ACHS [facility] Protocol Insulin Detemir 15 unit 07/04/24 23:45 07/04/24 23:47 Insulin Detemir (Levemir) 100 Unit/Ml Syr SQ 15 unit HS [facility] Administration Naloxone HCl 0.2 mg 07/04/24 21:41 Naloxone 0.4 Mg/Ml 1 Ml Vial IV Q2M PRN Opioid Reversal Ondansetron HCl 4 mg 07/04/24 21:41 Ondansetron 4 Mg/2 Ml Vial IVP Q8HR PRN Nausea And Vomiting Intake and Output 07/04/24 07/05/24 07/05/24 22:59 06:59 14:59 Other: Weight 113.398 kg 07/05/24 04:01 07/05/24 07:07
[2024-07-05 11:51] LABS: Glucose,Whole Blood 151 mg/dL (70-110)
--- NOTE | 2024-07-05 13:29 | P.NPCON ---
History of Present Illness - Reason for Consult acute renal failure - History of Present Illness Patient is a 69-year-old male with history of hypertension, CVA, diabetes who is admitted to the hospital with history of fall. It appears that patient was on the floor for 6 weeks. Details are not clear. Patient was found by a friend and EMS was called. Patient was hypotensive with significant volume depletion. He has received fluid resuscitation. CK level was 419 Patient was maintained on JUANPABLO inhibitors which are currently on hold. Serum creatinine was 1.9 on admission and decreased to 1.7 today. Previous creatinine was 0.87. Urine output not charted Past Medical History Past Medical History: Diabetes Mellitus History of Any Multi-Drug Resistant Organisms: None Reported Past Surgical History: Unable to Obtain Additional Past Surgical History / Comment(s): otho surgery to neck, metal floresita in left hip, left BKA with prosestic Past Psychological History: Depression Past Alcohol Use History: None Reported Past Drug Use History: None Reported - Past Family History Father Family Medical History: Diabetes Mellitus Mother Family Medical History: Unable to Obtain Medications and Allergies Home Medications Medication Instructions Recorded Confirmed Type Atorvastatin [Lipitor] 40 mg PO HS #30 tab 11/15/18 07/05/24 Rx Clopidogrel [Plavix] 75 mg PO DAILY #30 tab 11/15/18 07/05/24 Rx lisinopriL [Zestril] 10 mg PO DAILY #30 tab 11/15/18 07/05/24 Rx metFORMIN HCL [Glucophage] 1,000 mg PO BID-W/MEALS #60 tab 11/15/18 07/05/24 Rx Pioglitazone [Actos] 30 mg PO DAILY 07/05/24 07/05/24 History SITagliptin [Zituvio] 100 mg PO DAILY 07/05/24 07/05/24 History traZODone HCL [Desyrel] 100 mg PO HS 07/05/24 07/05/24 History Allergies Allergy/AdvReac Type Severity Reaction Status Date / Time bee venom protein (honey bee) Allergy [facility] Verified 07/05/24 07:44 DEER FLY BITES Allergy PER [facility] Uncoded 07/05/24 07:44 Physical Exam Vitals: Vital Signs Temp Pulse Resp BP Pulse Ox 07/05/24 10:00 105 H 18 161/80 96 07/05/24 09:00 108 H 19 137/53 96 07/05/24 07:39 109 H 20 105/52 96 07/05/24 06:02 81 18 121/59 96 07/05/24 02:33 98.7 F 115 H 22 93/49 94 L 07/05/24 00:00 112 H 18 96/53 98 07/04/24 23:30 110 H 15 114/58 98 07/04/24 21:43 109 H 18 112/73 97 07/04/24 20:25 116 H 18 93/57 95 07/04/24 19:07 97.9 F 88 18 95/57 97 Intake and Output 07/04/24 07/05/24 07/05/24 22:59 06:59 14:59 Other: Weight 113.398 kg Patient is awake, comfortable, no acute distress. Superficial laceration noted on the face Examination of the heart S1 and S2 Examination of the lungs bilateral breath sounds are heard Examination of lower extremities shows left BKA no edema noted CLAIMS SERVICE ADJUSTOR exam shows patient is moving all 4 extremities Results - Lab Results Most recent lab results Calcium 8.8 mg/dL (8.4-10.2) 07/05/24 07:07 Phosphorus 4.7 mg/dL (2.5-4.5) H 07/04/24 19:46 Magnesium 2.0 mg/dL (1.6-2.3) 07/04/24 19:46 07/05/24 04:01 07/05/24 07:07 Assessment and Plan Assessment: 1. Acute kidney injury ATN secondary to hypotension and significant volume depletion, improving. UA shows 2+ protein check ultrasound of the kidneys 2. Status post fall, no fractures noted. CK level 419 3. Mildly elevated troponin 4. History of CVA 5. History of hypertension with blood pressure currently low Plan: Continue with IV fluids Check ultrasound of the kidneys Repeat labs in a.m. Agree with holding JUANPABLO inhibitor's Avoid nephrotoxic agents. Thank you for the consultation. Will continue to follow the patient with you during his hospitalization.
--- NOTE | 2024-07-05 15:08 | P.PN ---
Subjective Progress Note Date: 07/05/24 Hospital Course: Patient is a 69-year-old male with diabetes, hypertension, history of CVA pres enting after mechanical fall. Vitals on admission temperature 98, heart rate 88 bpm, respiratory rate 18, blood pressure 95/57, O2 saturation 95% on 2 L nasal cannula EKG independently interpreted as sinus tachycardia with ventricular rate of 127 bpm and QTc of 425 ms CXR shows no acute pulmonary process CT of head showed no acute intracranial hemorrhage or midline shift CT of cervical spine showed no acute fracture or dislocation CT of facial bones showed no acute displaced fracture, mild to moderate swelling and hematoma over the right orbit Labs on admission show WBCs 13.2 with left shift, hemoglobin 17.9, MCV 101.6 platelets 211. Sodium 141, potassium 4.2, chloride 101, bicarb 26, BUN 84, creatinine 1.94, glucose 321. Lactic acid 3.2. Calcium 9.6. Phosphorus 4.7. Magnesium 2.0. AST 24, ALT 21, ALP 84. CK 346. Troponin 0.059. UA positive for protein and glucose. Patient admitted for ADRIAN, elevated troponin. Cardiology and nephrology consulted. Subjective: Patient seen and examined at bedside. No acute events overnight. No complaints of lightheadedness Pertinent positives and negatives as discussed above, a complete review of systems was performed and all other systems are negative. Vitals Signs Reviewed. General: Nontoxic, no distress, appears at stated age Derm: Warm, dry, right facial erythema Head: Atraumatic, normocephalic, symmetric Eyes: EOMI, no lid lag, anicteric sclera Mouth: No lip lesion, mucus membranes moist Cardiovascular: S1S2 reg, no murmur Lungs: CTA bilateral, no rhonchi, no rales, no accessory muscle use Abdominal: Soft, nontender to palpation, no guarding, no appreciable organomegaly Ext: Left BKA Neuro: CN II-XI grossly intact, no focal neuro deficits Psych: Alert, oriented, appropriate affect Data Reviewed Today: Pertinent Labs: WBC 11.5, hemoglobin 16.1, creatinine 1.78, troponin at 0.068, CK4 19, A1c 6.3, B12 1100, blood sugars range between 1 51-2 12 Imaging: EKG independently interpreted shows sinus rhythm with frequent PACs, right bundle branch block Assessment and Plan: Acute kidney injury, likely prerenal Dehydration -Renal ultrasound pending -Continue to hold JUANPABLO inhibitor -Continue normal saline at 150 cc an hour Elevated troponin History of CVA -Likely in the setting of ADRIAN and mild rhabdomyolysis -Cardiology note reviewed, echocardiogram pending, outpatient event monitor and stress testing, metoprolol 25 twice daily -Continue aspirin 81 mg, atorvastatin 80 mg, Plavix 75 mg daily Mechanical fall Mild rhabdomyolysis Left BKA -Leukocytosis, reactive -Continue IV fluids, repeat CK tomorrow -PT/OT Type 2 diabetes -Continue Levemir 15 units nightly, sliding scale insulin, monitor for hypoglycemia Hypertension -Hold lisinopril DVT ppx: Lovenox Code status: Full code Anticipated discharge place: Pending clinical course Anticipated discharge time: Pending clinical course Objective - Vital Signs Vital signs: Vital Signs Temp 98.7 F 07/05/24 02:33 Pulse 105 H 07/05/24 10:00 Resp 18 07/05/24 10:00 BP 161/80 07/05/24 10:00 Pulse Ox 96 07/05/24 10:00 FiO2 Intake & Output 07/04/24 07/05/24 07/05/24 18:59 06:59 18:59 Weight 113.398 kg - Labs CBC & Chem 7: 07/05/24 04:01 07/05/24 07:07 Labs: Abnormal Lab Results - Last 24 Hours (Table) 07/04/24 07/04/24 07/04/24 Range/Units 19:46 19:46 19:46 WBC 13.2 H (3.8-10.6) k/uL Hgb 17.9 H (13.0-17.5) gm/dL Hct 55.3 H (39.0-53.0) % MCV 101.6 H (80.0-100.0) fL Neutrophils # 11.4 H (1.3-7.7) k/uL Lymphocytes # 0.9 L (1.0-4.8) k/uL BUN 84 H (9-20) mg/dL Creatinine 1.94 H (0.66-1.25) mg/dL Glucose 321 H (74-99) mg/dL POC Glucose (mg/dL) (70-110) mg/dL Hemoglobin A1c (<=6.0) % Plasma Lactic Acid Robert 3.2 H* (0.7-2.0) mmol/L Phosphorus 4.7 H (2.5-4.5) mg/dL Creatine Kinase 346 H (55-170) U/L Troponin I (0.000-0.034) ng/mL Total Protein (6.3-8.2) g/dL Albumin 3.4 L (3.5-5.0) g/dL Vitamin B12 (200.0-944.0) pg/mL Urine Protein (Negative) Urine Glucose (UA) (Negative) 07/04/24 07/04/24 07/04/24 Range/Units 19:46 20:58 23:43 WBC (3.8-10.6) k/uL Hgb (13.0-17.5) gm/dL Hct (39.0-53.0) % MCV (80.0-100.0) fL Neutrophils # (1.3-7.7) k/uL Lymphocytes # (1.0-4.8) k/uL BUN (9-20) mg/dL Creatinine (0.66-1.25) mg/dL Glucose (74-99) mg/dL POC Glucose (mg/dL) 270 H (70-110) mg/dL Hemoglobin A1c (<=6.0) % Plasma Lactic Acid Robert (0.7-2.0) mmol/L Phosphorus (2.5-4.5) mg/dL Creatine Kinase (55-170) U/L Troponin I 0.059 H* (0.000-0.034) ng/mL Total Protein (6.3-8.2) g/dL Albumin (3.5-5.0) g/dL Vitamin B12 (200.0-944.0) pg/mL Urine Protein 2+ H (Negative) Urine Glucose (UA) 1+ H (Negative) 07/04/24 07/04/24 07/05/24 Range/Units 23:51 23:57 03:16 WBC (3.8-10.6) k/uL Hgb (13.0-17.5) gm/dL Hct (39.0-53.0) % MCV (80.0-100.0) fL Neutrophils # (1.3-7.7) k/uL Lymphocytes # (1.0-4.8) k/uL BUN (9-20) mg/dL Creatinine (0.66-1.25) mg/dL Glucose (74-99) mg/dL POC Glucose (mg/dL) (70-110) mg/dL Hemoglobin A1c (<=6.0) % Plasma Lactic Acid Robert 2.2 H* (0.7-2.0) mmol/L Phosphorus (2.5-4.5) mg/dL Creatine Kinase (55-170) U/L Troponin I 0.064 H* 0.068 H* (0.000-0.034) ng/mL Total Protein (6.3-8.2) g/dL Albumin (3.5-5.0) g/dL Vitamin B12 (200.0-944.0) pg/mL Urine Protein (Negative) Urine Glucose (UA) (Negative) 07/05/24 07/05/24 07/05/24 Range/Units 04:01 04:01 04:01 WBC 11.5 H (3.8-10.6) k/uL Hgb (13.0-17.5) gm/dL Hct (39.0-53.0) % MCV (80.0-100.0) fL Neutrophils # 9.7 H (1.3-7.7) k/uL Lymphocytes # (1.0-4.8) k/uL BUN (9-20) mg/dL Creatinine (0.66-1.25) mg/dL Glucose (74-99) mg/dL POC Glucose (mg/dL) (70-110) mg/dL Hemoglobin A1c 6.3 H (<=6.0) % Plasma Lactic Acid Robert (0.7-2.0) mmol/L Phosphorus (2.5-4.5) mg/dL Creatine Kinase 419 H (55-170) U/L Troponin I (0.000-0.034) ng/mL Total Protein (6.3-8.2) g/dL Albumin (3.5-5.0) g/dL Vitamin B12 1123.0 H (200.0-944.0) pg/mL Urine Protein (Negative) Urine Glucose (UA) (Negative) 07/05/24 07/05/24 07/05/24 Range/Units 07:07 07:45 11:49 WBC (3.8-10.6) k/uL Hgb (13.0-17.5) gm/dL Hct (39.0-53.0) % MCV (80.0-100.0) fL Neutrophils # (1.3-7.7) k/uL Lymphocytes # (1.0-4.8) k/uL BUN 86 H (9-20) mg/dL Creatinine 1.78 H (0.66-1.25) mg/dL Glucose 212 H (74-99) mg/dL POC Glucose (mg/dL) 178 H 151 H (70-110) mg/dL Hemoglobin A1c (<=6.0) % Plasma Lactic Acid Robert (0.7-2.0) mmol/L Phosphorus (2.5-4.5) mg/dL Creatine Kinase (55-170) U/L Troponin I (0.000-0.034) ng/mL Total Protein 5.6 L (6.3-8.2) g/dL Albumin 2.9 L (3.5-5.0) g/dL Vitamin B12 (200.0-944.0) pg/mL Urine Protein (Negative) Urine Glucose (UA) (Negative)
[2024-07-05] MEDS: ONDANSETRON 4 MG/2 ML VIAL IVP PRN (15:35)
[2024-07-05 18:24] LABS: Glucose,Whole Blood 119 mg/dL (70-110)
--- NOTE | 2024-07-05 20:47 | US ---
EXAMINATION TYPE: US kidneys/renal and bladder DATE OF EXAM: 07/05/2024 COMPARISON: NONE CLINICAL INDICATION: Male, 69 years old with history of ADRIAN; TECHNIQUE: Grayscale imaging of the bilateral kidneys and urinary bladder: FINDINGS: EXAM MEASUREMENTS: Right Kidney: 10.9 x 5.7 x 5.1 cm Left Kidney: 12.3 x 6.5 x 6.1 cm Director Of Dementia Operations notes: Immobile pt, difficult to scan Right Kidney: No evidence of hydro, lower pole gassed out Left Kidney: Limited views show no evidence of hydro Bladder: Not visualized IMPRESSION: Limited and technically difficult exam due to patient's condition. To the extent visualized, no hydro nephrosis is seen. Unable to assess the bladder. [facility], Workstation: [email or web address], 07/05/2024 8:45 PM
[2024-07-05 20:58] LABS: Glucose,Whole Blood 114 mg/dL (70-110)
[2024-07-05] MEDS: ATORVASTATIN 40 MG TAB PO SCH (21:52)
[2024-07-06 01:14] LABS: Glucose,Whole Blood 133 mg/dL (70-110)
[2024-07-06 06:28] LABS: Glucose,Whole Blood 72 mg/dL (70-110)
[2024-07-06 07:15] LABS: Basophils % (A) 0 %; Eosinophils # (A) 0.2 k/uL (0-0.7); Eosinophils % (A) 2 %; HCT 45.6 % (39.0-53.0); HGB 14.9 gm/dL (13.0-17.5); Lymphocytes # (A) 1.2 k/uL (1.0-4.8); Lymphocytes % (A) 11 %; MCH 32.8 pg (25.0-35.0); MCHC 32.7 g/dL (31.0-37.0); MCV 100.4 fL (80.0-100.0); Monocytes # (A) 0.6 k/uL (0-1.0); Monocytes % (A) 5 %; Neutrophils # (A) 8.8 k/uL (1.3-7.7); Neutrophils % (A) 81 %; Platelet Count 218 k/uL (150-450); RBC 4.54 m/uL (4.30-5.90); RDW 12.2 % (11.5-15.5); WBC 10.9 k/uL (3.8-10.6)
[2024-07-06 07:34] LABS: African American GFR (CKD) 56 (>60 ml/min/1.73 sqM); Anion Gap 7 mmol/L; Blood Urea Nitrogen 74 mg/dL (9-20); Calcium 8.8 mg/dL (8.4-10.2); Carbon Dioxide 26 mmol/L (22-30); Chloride 109 mmol/L (98-107); Glucose 76 mg/dL (74-99); Non-African American GFR(CKD) 48 (>60 ml/min/1.73 sqM); Potassium 3.7 mmol/L (3.5-5.1); Sodium 142 mmol/L (137-145)
[2024-07-06 08:24] LABS: Creatine Kinase 5138 U/L (55-170)
--- NOTE | 2024-07-06 11:08 | P.PN ---
Subjective Patient is seen for follow-up for acute kidney injury. Renal function has improved. Serum creatinine down to 1.47 g/dL. No significant complaints. Maintained on IV fluids. Objective - Vital Signs Vital signs: Vital Signs Temp 98.3 F 07/06/24 08:59 Pulse 55 L 07/06/24 08:59 Resp 18 07/06/24 08:59 BP 163/72 07/06/24 08:59 Pulse Ox 93 L 07/06/24 08:59 FiO2 Intake & Output 07/05/24 07/06/24 07/06/24 18:59 06:59 18:59 Intake Total 420 120 Balance 420 120 Weight 113.398 kg Intake: IV 20 Invasive Line 2 20 Oral 400 120 Other: Voiding Method External Catheter External Catheter - Exam Patient is awake, comfortable, no acute distress. Superficial laceration noted on the face Examination of the heart S1 and S2 Examination of the lungs bilateral breath sounds are heard Examination of lower extremities shows left BKA no edema noted WALLPAPER HANGER HELPER exam shows patient is moving all 4 extremities - Labs CBC & Chem 7: 07/06/24 06:49 07/06/24 06:49 Labs: Abnormal Lab Results - Last 24 Hours (Table) 07/05/24 07/05/24 07/05/24 Range/Units 04:01 11:49 18:22 WBC (3.8-10.6) k/uL MCV (80.0-100.0) fL Neutrophils # (1.3-7.7) k/uL Chloride (98-107) mmol/L BUN (9-20) mg/dL Creatinine (0.66-1.25) mg/dL POC Glucose (mg/dL) 151 H 119 H (70-110) mg/dL Creatine Kinase (55-170) U/L Vitamin B12 1123.0 H (200.0-944.0) pg/mL 07/05/24 07/06/24 07/06/24 Range/Units 20:57 01:12 06:49 WBC (3.8-10.6) k/uL MCV (80.0-100.0) fL Neutrophils # (1.3-7.7) k/uL Chloride 109 H (98-107) mmol/L BUN 74 H (9-20) mg/dL Creatinine 1.48 H (0.66-1.25) mg/dL POC Glucose (mg/dL) 114 H 133 H (70-110) mg/dL Creatine Kinase 5138 H* (55-170) U/L Vitamin B12 (200.0-944.0) pg/mL 07/06/24 Range/Units 06:49 WBC 10.9 H (3.8-10.6) k/uL MCV 100.4 H (80.0-100.0) fL Neutrophils # 8.8 H (1.3-7.7) k/uL Chloride (98-107) mmol/L BUN (9-20) mg/dL Creatinine (0.66-1.25) mg/dL POC Glucose (mg/dL) (70-110) mg/dL Creatine Kinase (55-170) U/L Vitamin B12 (200.0-944.0) pg/mL Assessment and Plan Assessment: 1. Acute kidney injury ATN secondary to hypotension and significant volume depletion, improving. UA shows 2+ protein. No obstruction noted on ultrasound of the kidneys 2. Status post fall, no fractures noted. 3. Mildly elevated troponin 4. History of CVA 5. History of hypertension with blood pressure currently low 6. Rhabdomyolysis with CK increasing to 5138 today. Plan: Decrease IV fluids. Encouraged increased oral intake Continue to monitor CK which has started to increase now DC Lipitor
[2024-07-06 11:43] LABS: Glucose,Whole Blood 81 mg/dL (70-110)
--- NOTE | 2024-07-06 12:41 | P.PN ---
Subjective Progress Note Date: 07/06/24 HISTORY OF PRESENT ILLNESS: This is a 69-year-old male with a past medical history significant for hype rtension, diabetes, hyperlipidemia, and CVA. 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 We have been asked to see the patient in consultation for bated troponins. Patient examined at the bedside emergency room. Patient presented to the hospital after he was found laying on his floor in his apartment by a friend. Patient states he was laying on the floor for 6 weeks, however actual time down is unknown. The patient states that he tripped and denies having any syncope. The patient currently denies any chest pain or pressure. He denies any shortness of breath. Patient was found to have acute kidney injury and is receiving IV fluids. Patient does have a history of CVA back in 2019. He denies any known history of atrial fibrillation. Telemetry reveals sinus mechanism with significant ectopy. Blood pressure stable. He reports a family history of CAD in his dad but states unsure at what age. He is a current smoker. He denies any alcohol use. Denies any drug use including marijuana DIAGNOSTICS: - EKG reveals sinus mechanism with PACs. - Chest xray negative for acute process - Laboratory data: WBC 11.5. Hemoglobin 16.1. Platelet count 198. Sodium 141. Potassium 3.9. BUN 86. Creatinine 1.78. Creatinine kinase 346. Troponin 0.059. 0.064. 0.068. - Current home cardiac medications include lisinopril 10 mg daily, Plavix 75 mg daily, Lipitor 40 mg at night. - Most recent echocardiogram obtained in 2019 reveals ejection fraction 55 to 60%, trace MR, trace TR. - Cardiac catheterization history: Patient denies 07/06/2024 He has been doing okay. Denies any chest pain or shortness of breath. WBC 10.9. Echo was taken however report is still pending. PHYSICAL EXAM: VITAL SIGNS: Reviewed. GENERAL: Well-developed in no acute distress. HEENT: Head is normocephalic. Pupils are equal, round. Sclerae anicteric. Mucous membranes of the mouth are moist. Neck supple. No JVD or thyromegaly LUNGS: Respirations even and unlabored. Lungs essentially clear to auscultation bilaterally. HEART: Irregular rate and rhythm. S1 and S2 heard. Systolic murmur noted ABDOMEN: Soft. Nondistended. Nontender. EXTREMITIES: Normal range of motion. No clubbing or cyanosis. Peripheral pulses intact. Left BKA. NEUROLOGIC: Awake and alert. Oriented x 3. ASSESSMENT: Status post mechanical fall without evidence of syncope Acute kidney injury Elevated troponins, flat, likely secondary to poor renal clearance, no evidence of myocardial injury or ischemia History of left BKA History of hypertension History of CVA Diabetes Nicotine/tobacco dependence PLAN: An acute coronary but has been ruled out Obtain 2D echo to assess cardiac structure and function, report is pending. Resume home cardiac medications Monitor kidney function. Lisinopril remains on hold secondary to ADRIAN Bedside telemetry reveals sinus mechanism with significant ectopy. High suspicion that patient has history of atrial fibrillation, however no clear afib at this time. Recommend outpatient event monitor Recommend outpatient stress testing Continue telemetry monitoring Further recommendations pending patient course Nurse practitioner note has been reviewed by physician. Signing provider agrees with the documented findings, assessment, and plan of care documented by HAT TRIMMER as a scribe. Objective - Vital Signs Vital signs: Vital Signs Temp 99.6 F 07/06/24 10:50 Pulse 59 L 07/06/24 10:50 Resp 18 07/06/24 11:01 BP 131/70 07/06/24 10:50 Pulse Ox 93 L 07/06/24 11:11 FiO2 Intake & Output 07/05/24 07/06/24 07/06/24 18:59 06:59 18:59 Intake Total 420 120 Balance 420 120 Weight 113.398 kg 113.398 kg Intake: IV 20 Invasive Line 2 20 Oral 400 120 Other: Voiding Method External Catheter External Catheter - Labs CBC & Chem 7: 07/06/24 06:49 07/06/24 06:49 Labs: Abnormal Lab Results - Last 24 Hours (Table) 07/05/24 07/05/24 07/06/24 Range/Units 18:22 20:57 01:12 WBC (3.8-10.6) k/uL MCV (80.0-100.0) fL Neutrophils # (1.3-7.7) k/uL Chloride (98-107) mmol/L BUN (9-20) mg/dL Creatinine (0.66-1.25) mg/dL POC Glucose (mg/dL) 119 H 114 H 133 H (70-110) mg/dL Creatine Kinase (55-170) U/L 07/06/24 07/06/24 Range/Units 06:49 06:49 WBC 10.9 H (3.8-10.6) k/uL MCV 100.4 H (80.0-100.0) fL Neutrophils # 8.8 H (1.3-7.7) k/uL Chloride 109 H (98-107) mmol/L BUN 74 H (9-20) mg/dL Creatinine 1.48 H (0.66-1.25) mg/dL POC Glucose (mg/dL) (70-110) mg/dL Creatine Kinase 5138 H* (55-170) U/L
--- NOTE | 2024-07-06 12:54 | CA ---
Transthoracic Echo Report Name: Jorge A Bran Age: 69 Gender: M : 1955 Exam Date: 07/05/2024 14:21 Exam Location: [facility] Ht (in): 73 Wt (lb): 250 Ordering Physician: Ansley Bingham MD Attending/Referring Phys: Pricer Kassandra Shi RDCS Procedure CPT: Indications: LV function Cardiac Hx: Technical Quality: Very technically difficult study Contrast 1: Total Dose (mL): Contrast 2: Total Dose (mL): MEASUREMENTS (Male / Female) Normal Values 2D ECHO LV Diastolic Diameter PLAX 3.9 cm 4.2 - 5.9 / 3.9 - 5.3 cm LV Systolic Diameter PLAX 3.0 cm IVS Diastolic Thickness 1.4 cm 0.6 - 1.0 / 0.6 - 0.9 cm LVPW Diastolic Thickness 1.4 cm 0.6 - 1.0 / 0.6 - 0.9 cm LV Relative Wall Thickness 0.7 RV Internal Dim ED PLAX 3.6 cm LA Systolic Diameter LX 3.0 cm 3.0 - 4.0 / 2.7 - 3.8 cm M-MODE Aortic Root Diameter MM 4.3 cm DOPPLER AV Peak Velocity 232.4 cm/s AV Peak Gradient 21.6 mmHg AV Mean Velocity 138.9 cm/s AV Mean Gradient 9.9 mmHg AV Velocity Time Integral 39.1 cm LVOT Peak Velocity 114.3 cm/s LVOT Peak Gradient 5.2 mmHg LVOT Velocity Time Integral 24.2 cm MV Area PHT 2.6 cm??? Mitral E Point Velocity 42.2 cm/s Mitral A Point Velocity 106.0 cm/s Mitral E to A Ratio 0.4 MV Deceleration Time 288.4 ms TR Peak Velocity 244.9 cm/s TR Peak Gradient 24.0 mmHg Right Ventricular Systolic Press 29.0 mmHg FINDINGS Left Ventricle Left ventricular ejection fraction is estimated at 35-40 %. Small left ventricular cavity. Moderate concentric left ventricular hypertrophy. Apical septum hypokinesis Right Ventricle Mild right ventricular dilatation. Right ventricular systolic pressure within normal limits. Right Atrium Right atrium not well visualized. Left Atrium Left atrium not well visualized. Normal left atrial size. Mitral Valve Mitral valve not well visualized. Mitral valve thickened. Mitral annular calcification. Aortic Valve Aortic valve not well visualized. Diffuse thickening of the aortic valve cusps with reduced excursion. Mild aortic stenosis with a peak gradient of 22 mmHg and a mean gradient of 10 mmHg. Tricuspid Valve Structurally normal tricuspid valve. Mild tricuspid regurgitation. Pulmonic Valve Pulmonic valve not well visualized. Pericardium No pericardial effusion. Aorta Moderate aortic dilatation at the level of the sinuses of valsalva 43 mm CONCLUSIONS Very technically difficult study. EF 35 to 40% Apical and apical septal hypokinesia Mild RV dilatation Mild mitral stenosis with mean gradient of 10 mmHg, calcified aortic valve Mitral annular calcification Dilated aortic root measuring at 4.3 cm Previewed by: Dr Skip Mendosa (Electronically Signed) Final Date: 06 July 2024 12:53
--- NOTE | 2024-07-06 14:33 | P.PN ---
Subjective Progress Note Date: 07/06/24 No new complaints today. Pt denies having pain anywhere. Gen: In NAD, non-toxic HEENT: normocephalic, atraumatic, hearing acuity is intant, mucous membranes moist CVS: perfusing all extremities well, no pitting edema, Respiratory: symmetric chest expansion, no accessory muscle use, GI: soft, NTTP, ND, : no suprapubic tenderness, no CVA tenderness MSK/Derm: no rashes, cyanosis Neuro: CN II-XII intact, no motor weakness, Psych: cooperative, euthymic mood, judgment and insight is intact Hospital course: Hospital Course: Patient is a 69-year-old male with diabetes, hypertension, history of CVA presenting after mechanical fall. Vitals on admission temperature 98, heart rate 88 bpm, respiratory rate 18, blood pressure 95/57, O2 saturation 95% on 2 L nasal cannula EKG independently interpreted as sinus tachycardia with ventricular rate of 127 bpm and QTc of 425 ms CXR shows no acute pulmonary process CT of head showed no acute intracranial hemorrhage or midline shift CT of cervical spine showed no acute fracture or dislocation CT of facial bones showed no acute displaced fracture, mild to moderate swelling and hematoma over the right orbit Labs on admission show WBCs 13.2 with left shift, hemoglobin 17.9, MCV 101.6 platelets 211. Sodium 141, potassium 4.2, chloride 101, bicarb 26, BUN 84, creatinine 1.94, glucose 321. Lactic acid 3.2. Calcium 9.6. Phosphorus 4.7. Magnesium 2.0. AST 24, ALT 21, ALP 84. CK 346. Troponin 0.059. UA positive for protein and glucose. Patient admitted for ADRIAN, elevated troponin. Cardiology and nephrology consulted. Assessment and Plan: Acute kidney injury, likely prerenal Dehydration -Renal ultrasound was a challenging study, but no hydronephrosis identified -Continue to hold JUANPABLO inhibitor -Continue normal saline at 150 cc an hour Elevated troponin History of CVA -Likely in the setting of ADRIAN and mild rhabdomyolysis -Cardiology note reviewed, echocardiogram pending, outpatient event monitor and stress testing, metoprolol 25 twice daily -Continue aspirin 81 mg, atorvastatin 80 mg, Plavix 75 mg daily Mechanical fall Rhabdomyolysis Left BKA -Leukocytosis, reactive -Continue IV fluids, repeat CK tomorrow, hold statin -PT/OT Type 2 diabetes -Continue Levemir 15 units nightly, sliding scale insulin, monitor for hypoglyce tomasa Hypertension -Hold lisinopril DVT ppx: Lovenox Code status: Full code Anticipated discharge place: Pending clinical course Anticipated discharge time: Pending clinical course Objective - Vital Signs Vital signs: Vital Signs Temp 99.6 F 07/06/24 10:50 Pulse 59 L 07/06/24 10:50 Resp 18 07/06/24 11:01 BP 131/70 07/06/24 10:50 Pulse Ox 93 L 07/06/24 11:11 FiO2 Intake & Output 07/05/24 07/06/24 07/06/24 18:59 06:59 18:59 Intake Total 420 1170 Balance 420 1170 Weight 113.398 kg 113.398 kg Intake: IV 20 Invasive Line 2 20 Intake, IV Titration 1050 Amount Sodium Chloride 0.9% 1, 1050 000 ml @ 100 mls/hr IV . Q10H [facility] Rx#:[id number] Oral 400 120 Other: Voiding Method External Catheter External Catheter - Labs CBC & Chem 7: 07/06/24 06:49 07/06/24 06:49 Labs: Abnormal Lab Results - Last 24 Hours (Table) 07/05/24 07/05/24 07/06/24 Range/Units 18:22 20:57 01:12 WBC (3.8-10.6) k/uL MCV (80.0-100.0) fL Neutrophils # (1.3-7.7) k/uL Chloride (98-107) mmol/L BUN (9-20) mg/dL Creatinine (0.66-1.25) mg/dL POC Glucose (mg/dL) 119 H 114 H 133 H (70-110) mg/dL Creatine Kinase (55-170) U/L 07/06/24 07/06/24 Range/Units 06:49 06:49 WBC 10.9 H (3.8-10.6) k/uL MCV 100.4 H (80.0-100.0) fL Neutrophils # 8.8 H (1.3-7.7) k/uL Chloride 109 H (98-107) mmol/L BUN 74 H (9-20) mg/dL Creatinine 1.48 H (0.66-1.25) mg/dL POC Glucose (mg/dL) (70-110) mg/dL Creatine Kinase 5138 H* (55-170) U/L
[2024-07-06 17:05] LABS: Glucose,Whole Blood 105 mg/dL (70-110)
[2024-07-06] MEDS: ACETAMINOPHEN TAB 325 MG TAB PO PRN (20:21)
[2024-07-06 21:32] LABS: Glucose,Whole Blood 84 mg/dL (70-110)
[2024-07-07 01:35] LABS: Glucose,Whole Blood 114 mg/dL (70-110)
[2024-07-07] MEDS: CALCIUM CARBONATE 500 MG CHEWABLE PO PRN (04:34)
[2024-07-07 06:28] LABS: Glucose,Whole Blood 111 mg/dL (70-110)
[2024-07-07 08:39] LABS: African American GFR (CKD) 65 (>60 ml/min/1.73 sqM); Anion Gap 12 mmol/L; Blood Urea Nitrogen 55 mg/dL (9-20); Calcium 8.4 mg/dL (8.4-10.2); Carbon Dioxide 22 mmol/L (22-30); Chloride 106 mmol/L (98-107); Glucose 142 mg/dL (74-99); Non-African American GFR(CKD) 56 (>60 ml/min/1.73 sqM); Potassium 3.7 mmol/L (3.5-5.1); Sodium 140 mmol/L (137-145)
[2024-07-07 11:18] LABS: Glucose,Whole Blood 137 mg/dL (70-110)
--- NOTE | 2024-07-07 11:39 | P.PN ---
Subjective Patient is seen for follow-up for acute kidney injury. Renal function has improved. Serum creatinine down to 1.3 g/dL. No significant complaints. Maintained on IV fluids. Objective - Vital Signs Vital signs: Vital Signs Temp 98.4 F 07/07/24 08:00 Pulse 87 07/07/24 08:00 Resp 20 07/07/24 08:00 BP 134/72 07/07/24 08:00 Pulse Ox 92 L 07/07/24 08:00 FiO2 Intake & Output 07/06/24 07/07/24 07/07/24 18:59 06:59 18:59 Intake Total 1410 240 Output Total 350 650 150 Balance 1060 -650 90 Weight 113.398 kg 120.5 kg Intake: Intake, IV Titration 1050 Amount Sodium Chloride 0.9% 1, 1050 000 ml @ 100 mls/hr IV . Q10H [facility] Rx#:[id number] Oral 360 240 Output: Urine 350 650 150 Other: Voiding Method External Catheter External Catheter External Catheter - Exam Patient is awake, comfortable, no acute distress. Superficial laceration noted on the face Examination of the heart S1 and S2 Examination of the lungs bilateral breath sounds are heard Examination of lower extremities shows left BKA no edema noted QUALITY CONTROL TECHNICIAN exam shows patient is moving all 4 extremities - Labs CBC & Chem 7: 07/06/24 06:49 07/07/24 07:34 Labs: Abnormal Lab Results - Last 24 Hours (Table) 07/07/24 07/07/24 07/07/24 Range/Units 01:33 06:27 07:34 BUN 55 H (9-20) mg/dL Creatinine 1.30 H (0.66-1.25) mg/dL Glucose 142 H (74-99) mg/dL POC Glucose (mg/dL) 114 H 111 H (70-110) mg/dL 07/07/24 Range/Units 11:16 BUN (9-20) mg/dL Creatinine (0.66-1.25) mg/dL Glucose (74-99) mg/dL POC Glucose (mg/dL) 137 H (70-110) mg/dL Assessment and Plan Assessment: 1. Acute kidney injury ATN secondary to hypotension and significant volume depletion, improving. UA shows 2+ protein. No obstruction noted on ultrasound of the kidneys 2. Status post fall, no fractures noted. 3. Mildly elevated troponin 4. History of CVA 5. History of hypertension with blood pressure currently low 6. Rhabdomyolysis with CK increasing to 5138 yesterday Plan: Continue off of statins Repeat CK today Continue with IV fluids
--- NOTE | 2024-07-07 13:27 | XR ---
EXAMINATION TYPE: XR chest 2V DATE OF EXAM: 07/07/2024 1:18 PM COMPARISON: None. CLINICAL INDICATION: Male, 69 years old with history of hypoxia, TECHNIQUE: XR chest 2V view(s) obtained. FINDINGS: The heart size is prominent. The pulmonary vasculature is normal. The lungs are clear. IMPRESSION: 1. No acute pulmonary process. [facility], , 07/07/2024 1:25 PM
--- NOTE | 2024-07-07 16:17 | P.PN ---
Subjective Progress Note Date: 07/07/24 HISTORY OF PRESENT ILLNESS: This is a 69-year-old male with a past medical history significant for hype rtension, diabetes, hyperlipidemia, and CVA. 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 We have been asked to see the patient in consultation for bated troponins. Patient examined at the bedside emergency room. Patient presented to the hospital after he was found laying on his floor in his apartment by a friend. Patient states he was laying on the floor for 6 weeks, however actual time down is unknown. The patient states that he tripped and denies having any syncope. The patient currently denies any chest pain or pressure. He denies any shortness of breath. Patient was found to have acute kidney injury and is receiving IV fluids. Patient does have a history of CVA back in 2019. He denies any known history of atrial fibrillation. Telemetry reveals sinus mechanism with significant ectopy. Blood pressure stable. He reports a family history of CAD in his dad but states unsure at what age. He is a current smoker. He denies any alcohol use. Denies any drug use including marijuana DIAGNOSTICS: - EKG reveals sinus mechanism with PACs. - Chest xray negative for acute process - Laboratory data: WBC 11.5. Hemoglobin 16.1. Platelet count 198. Sodium 141. Potassium 3.9. BUN 86. Creatinine 1.78. Creatinine kinase 346. Troponin 0.059. 0.064. 0.068. - Current home cardiac medications include lisinopril 10 mg daily, Plavix 75 mg daily, Lipitor 40 mg at night. - Most recent echocardiogram obtained in 2019 reveals ejection fraction 55 to 60%, trace MR, trace TR. - Cardiac catheterization history: Patient denies 07/06/2024 He has been doing okay. Denies any chest pain or shortness of breath. WBC 10.9. Echo was taken however report is still pending. 07/07/2024 Patient laying in bed, flat affect, no specific complaints. Denies any chest pain or shortness of breath. He is not eating much. Echocardiogram does show EF with 35-40%, mild aortic stenosis, mild mitral stenosis, aortic root 4.3 cm. PHYSICAL EXAM: VITAL SIGNS: Reviewed. GENERAL: Well-developed in no acute distress. HEENT: Head is normocephalic. Pupils are equal, round. Sclerae anicteric. Mucous membranes of the mouth are moist. Neck supple. No JVD or thyromegaly LUNGS: Respirations even and unlabored. Lungs essentially clear to auscultation bilaterally. HEART: Irregular rate and rhythm. S1 and S2 heard. Systolic murmur noted ABDOMEN: Soft. Nondistended. Nontender. EXTREMITIES: Normal range of motion. No clubbing or cyanosis. Peripheral pulses intact. Left BKA. NEUROLOGIC: Awake and alert. Oriented x 3. ASSESSMENT: Status post mechanical fall without evidence of syncope Acute kidney injury Elevated troponins, flat, likely secondary to poor renal clearance, no evidence of myocardial injury or ischemia History of left BKA History of hypertension History of CVA Diabetes Nicotine/tobacco dependence Mild aortic stenosis Mild mitral stenosis Aortic root 4.3 cm PLAN: Echocardiogram does show decrease in EF. Will work to optimize heart failure regimen and resume lisinopril at 2.5 mg. May be related to Takotsubo's. Discussed further evaluation with left heart cath versus stress testing on Tuesday depending on clinical course and kidney function. Continue telemetry monitoring Further recommendations pending patient course Nurse practitioner note has been reviewed by Dr. Harris. Signing provider agrees with the documented findings, assessment, and plan of care documented by CASTING AND PASTING SUPERVISOR as a scribe. Objective - Vital Signs Vital signs: Vital Signs Temp 98.8 F 07/07/24 01:12 Pulse 95 07/07/24 04:22 Resp 17 07/07/24 04:22 BP 123/72 07/07/24 04:22 Pulse Ox 95 07/07/24 04:22 FiO2 Intake & Output 07/06/24 07/07/24 07/07/24 18:59 06:59 18:59 Intake Total 1410 0 Output Total 350 650 Balance 1060 -650 0 Weight 113.398 kg 120.5 kg Intake: Intake, IV Titration 1050 Amount Sodium Chloride 0.9% 1, 1050 000 ml @ 100 mls/hr IV . Q10H [facility] Rx#:[id number] Oral 360 0 Output: Urine 350 650 Other: Voiding Method External Catheter External Catheter - Labs CBC & Chem 7: 07/06/24 06:49 07/07/24 07:34 Labs: Abnormal Lab Results - Last 24 Hours (Table) 01/10/25 01/11/25 01/11/25 Range/Units 06:49 01:33 06:27 POC Glucose (mg/dL) 114 H 111 H (70-110) mg/dL Creatine Kinase 5138 H* (55-170) U/L
[2024-07-07 16:19] LABS: Glucose,Whole Blood 148 mg/dL (70-110)
--- NOTE | 2024-07-07 16:22 | P.PN ---
Subjective Progress Note Date: 07/07/24 (delayed charting seen at 11:45) 69-year-old with diabetes, hypertension, history of CVA presenting after mechanical fall and have acute kidney injury, dehydration, elevated troponin, and rhabdo. Patient seen and examined at bedside. No complaints. Denies any pain. No shortness of breath. Vital signs reviewed General: Nontoxic, no distress, appears at stated age Cardiovascular: S1S2 reg, no murmur Lungs: CTA bilateral, no rhonchi, no rales, no accessory muscle use Abdominal: Soft, nontender to palpation, no guarding Ext: No gross muscle atrophy, trace edema right lower extremity, BKA on the left Neuro: CN II-XI grossly intact, no focal neuro deficits Psych: Alert, oriented, appropriate affect Assessment/Plan: Acute Hypoxic respiratory failure - undetermined etiology -CXR negative -Concern for possible PE. Given recent ADRIAN check d-dimer, VQ and LE dopplers Rhabdo due to mechanical fall - prolonged down time. - CK improving to 1424 today. Continue IV fluids. Repeat CK in AM. Repeat renal fct in AM Type 2 diabetes - Levemir 15 units nightly, sliding scale insulin, monitor for hypoglycemia - A1C 6.3 Hypertension -Hold lisinopril - Lopressor 25 mg PO BID - Lisinopril 2.5 mg daily Resolved: Acute kidney injury, likely prerenal Dehydration Imaging: X-ray ordered and reviewed: No acute process Data Review: Labs remarkable for BUN 55, creatinine 1.3, CK pending DVT prophylaxis: Lovenox Barriers to discharge: Hypoxic requiring 5L not on O2 at baseline This dictation was prepared using [employer] voice recognition software. Though every attempt is made to correct errors during dictation some may still exist. Objective - Vital Signs Vital signs: Vital Signs Temp 98.1 F 07/07/24 15:59 Pulse 89 07/07/24 15:59 Resp 18 07/07/24 15:59 BP 132/69 07/07/24 15:59 Pulse Ox 96 07/07/24 15:59 FiO2 Intake & Output 07/06/24 07/07/24 07/07/24 18:59 06:59 18:59 Intake Total 1410 780 Output Total 350 650 650 Balance 1060 -650 130 Weight 113.398 kg 120.5 kg Intake: Intake, IV Titration 1050 Amount Sodium Chloride 0.9% 1, 1050 000 ml @ 100 mls/hr IV . Q10H [facility] Rx#:[id number] Oral 360 780 Output: Urine 350 650 650 Other: Voiding Method External Catheter External Catheter External Catheter - Labs CBC & Chem 7: 07/06/24 06:49 07/07/24 07:34 Labs: Abnormal Lab Results - Last 24 Hours (Table) 07/07/24 07/07/24 07/07/24 Range/Units 01:33 06:27 07:34 BUN 55 H (9-20) mg/dL Creatinine 1.30 H (0.66-1.25) mg/dL Glucose 142 H (74-99) mg/dL POC Glucose (mg/dL) 114 H 111 H (70-110) mg/dL Creatine Kinase (55-170) U/L 07/07/24 07/07/24 07/07/24 Range/Units 07:34 11:16 16:17 BUN (9-20) mg/dL Creatinine (0.66-1.25) mg/dL Glucose (74-99) mg/dL POC Glucose (mg/dL) 137 H 148 H (70-110) mg/dL Creatine Kinase 1424 H* (55-170) U/L
--- NOTE | 2024-07-07 18:57 | US ---
EXAMINATION TYPE: US venous doppler duplex LE BI DATE OF EXAM: 07/07/2024 6:29 PM COMPARISON: NONE CLINICAL INDICATION: Male, 69 years old with history of DVT; No hx of DVT. Patient has portion of low er left leg that was amputated a long time ago. TECHNIQUE: The lower extremity deep venous system is examined utilizing real time linear array sonog radha with graded compression, color doppler sonography, and spectral doppler. SIDE PERFORMED: Bilateral FINDINGS: VESSELS IMAGED: Common Femoral Vein Deep Femoral Vein Greater Saphenous Vein * Femoral Vein Popliteal Vein Small Saphenous Vein * Right proximal Calf Veins (* superficial vessels) Right Leg: No evidence of DVT. Unable to visualize peroneal veins. Left Leg: No evidence of DVT. Slightly limited due to shadowing from artery. *Unable to visualize pro x calf veins. IMPRESSION: 1. Bilateral lower extremity ultrasound negative for deep venous thrombosis. [facility], , 07/07/2024 6:54 PM
[2024-07-07 21:03] LABS: Glucose,Whole Blood 172 mg/dL (70-110)
[2024-07-08 05:58] LABS: Glucose,Whole Blood 133 mg/dL (70-110)
[2024-07-08 06:30] LABS: HGB 12.4 gm/dL (13.0-17.5); MCH 32.7 pg (25.0-35.0); MCHC 32.5 g/dL (31.0-37.0); MCV 100.7 fL (80.0-100.0); Mean Platelet Volume 9.3; Platelet Count 171 k/uL (150-450); RBC 3.77 m/uL (4.30-5.90); RDW 12.2 % (11.5-15.5); WBC 12.1 k/uL (3.8-10.6)
[2024-07-08 06:44] LABS: African American GFR (CKD) 85 (>60 ml/min/1.73 sqM); Anion Gap 7 mmol/L; Blood Urea Nitrogen 39 mg/dL (9-20); Calcium 8.3 mg/dL (8.4-10.2); Carbon Dioxide 22 mmol/L (22-30); Chloride 109 mmol/L (98-107); Glucose 137 mg/dL (74-99); Non-African American GFR(CKD) 74 (>60 ml/min/1.73 sqM); Potassium 3.7 mmol/L (3.5-5.1); Sodium 138 mmol/L (137-145)
--- NOTE | 2024-07-08 08:57 | NM ---
EXAMINATION TYPE: NM pul vent and perfuse DATE OF EXAM: 07/08/2024 CLINICAL INDICATION: Male, 69 years old with history of Pulmonary embolism; COMPARISON: 07/07/2024 TECHNIQUE: Utilizing inhalation of 42.3 mCi Tc 99m DTPA aerosol and intravenous injection of 5.2 mCi of Tc 99m MAA, ventilation and perfusion images are acquired post injection in multiple projections. FINDINGS: Normal radiotracer distribution is present on ventilation and perfusion. There is some mild central d eposition at the left hilum. No moderate or large mismatched defects are evident. No Triple matched d efects evident. IMPRESSION: Low probability for pulmonary embolism based on PIOPED 2 criteria. [facility], , 07/08/2024 8:54 AM
[2024-07-08 11:22] LABS: Glucose,Whole Blood 132 mg/dL (70-110)
--- NOTE | 2024-07-08 12:22 | P.PN ---
Subjective Progress Note Date: 07/08/24 HISTORY OF PRESENT ILLNESS: This is a 69-year-old male with a past medical history significant for hype rtension, diabetes, hyperlipidemia, and CVA. Patient does not follow with a retail office manager. We have been asked to see the patient in consultation for bated troponins. Patient examined at the bedside emergency room. Patient presented to the hospital after he was found laying on his floor in his apartment by a friend. Patient states he was laying on the floor for 6 weeks, however actual time down is unknown. The patient states that he tripped and denies having any syncope. The patient currently denies any chest pain or pressure. He denies any shortness of breath. Patient was found to have acute kidney injury and is receiving IV fluids. Patient does have a history of CVA back in 2019. He denies any known history of atrial fibrillation. Telemetry reveals sinus mechanism with significant ectopy. Blood pressure stable. He reports a family history of CAD in his dad but states unsure at what age. He is a current smoker. He denies any alcohol use. Denies any drug use including marijuana DIAGNOSTICS: - EKG reveals sinus mechanism with PACs. - Chest xray negative for acute process - Laboratory data: WBC 11.5. Hemoglobin 16.1. Platelet count 198. Sodium 141. Potassium 3.9. BUN 86. Creatinine 1.78. Creatinine kinase 346. Troponin 0.059. 0.064. 0.068. - Current home cardiac medications include lisinopril 10 mg daily, Plavix 75 mg daily, Lipitor 40 mg at night. - Most recent echocardiogram obtained in 2019 reveals ejection fraction 55 to 60%, trace MR, trace TR. - Cardiac catheterization history: Patient denies 07/06/2024 He has been doing okay. Denies any chest pain or shortness of breath. WBC 10.9. Echo was taken however report is still pending. 07/07/2024 Patient laying in bed, flat affect, no specific complaints. Denies any chest pain or shortness of breath. He is not eating much. Echocardiogram does show EF with 35-40%, mild aortic stenosis, mild mitral stenosis, aortic root 4.3 cm. 07/08/2024 Patient is more awake and alert today. He has no complaints. Creat 1.04, improved. PHYSICAL EXAM: VITAL SIGNS: Reviewed. GENERAL: Well-developed in no acute distress. HEENT: Head is normocephalic. Pupils are equal, round. Sclerae anicteric. Mucous membranes of the mouth are moist. Neck supple. No JVD or thyromegaly LUNGS: Respirations even and unlabored. Lungs essentially clear to auscultation bilaterally. HEART: Irregular rate and rhythm. S1 and S2 heard. Systolic murmur noted ABDOMEN: Soft. Nondistended. Nontender. EXTREMITIES: Normal range of motion. No clubbing or cyanosis. Peripheral pulses intact. Left BKA. NEUROLOGIC: Awake and alert. Oriented x 3. ASSESSMENT: Status post mechanical fall without evidence of syncope Acute kidney injury Elevated troponins, flat, likely secondary to poor renal clearance, no evidence of myocardial injury or ischemia History of left BKA History of hypertension History of CVA Diabetes Nicotine/tobacco dependence Mild aortic stenosis Mild mitral stenosis Aortic root 4.3 cm PLAN: Echocardiogram does show decrease in EF. Will work to optimize heart failure regimen and resume lisinopril at 2.5 mg. May be related to Takotsubo's. Kidney function has normalized. We will plan to proceed with left heart cath tomorrow for further evaluation tomorrow 07/09 as long as creatinine remains sta ble. Continue telemetry monitoring Further recommendations pending patient course Nurse practitioner note has been reviewed by Dr. Harris. Signing provider agrees with the documented findings, assessment, and plan of care documented by AWNING FRAME MAKER as a scribe. Objective - Vital Signs Vital signs: Vital Signs Temp 98.3 F 07/08/24 04:52 Pulse 92 07/08/24 04:52 Resp 18 07/08/24 04:52 BP 147/78 07/08/24 04:52 Pulse Ox 94 L 07/08/24 04:52 FiO2 Intake & Output 07/07/24 07/08/24 07/08/24 18:59 06:59 18:59 Intake Total 780 Output Total 650 700 Balance 130 -700 Weight 120 kg Intake: Oral 780 Output: Urine 650 700 Other: Voiding Method External Catheter External Catheter - Labs CBC & Chem 7: 07/08/24 06:16 07/08/24 06:16 Labs: Abnormal Lab Results - Last 24 Hours (Table) 07/07/24 07/07/24 07/07/24 Range/Units 07:34 07:34 11:16 WBC (3.8-10.6) k/uL RBC (4.30-5.90) m/uL Hgb (13.0-17.5) gm/dL Hct (39.0-53.0) % MCV (80.0-100.0) fL D-Dimer (<0.60) mg/L FEU Chloride (98-107) mmol/L BUN 55 H (9-20) mg/dL Creatinine 1.30 H (0.66-1.25) mg/dL Glucose 142 H (74-99) mg/dL POC Glucose (mg/dL) 137 H (70-110) mg/dL Calcium (8.4-10.2) mg/dL Creatine Kinase 1424 H* (55-170) U/L 07/07/24 07/07/24 07/07/24 Range/Units 16:17 16:20 21:01 WBC (3.8-10.6) k/uL RBC (4.30-5.90) m/uL Hgb (13.0-17.5) gm/dL Hct (39.0-53.0) % MCV (80.0-100.0) fL D-Dimer 5.22 H (<0.60) mg/L FEU Chloride (98-107) mmol/L BUN (9-20) mg/dL Creatinine (0.66-1.25) mg/dL Glucose (74-99) mg/dL POC Glucose (mg/dL) 148 H 172 H (70-110) mg/dL Calcium (8.4-10.2) mg/dL Creatine Kinase (55-170) U/L 07/08/24 07/08/24 07/08/24 Range/Units 05:55 06:16 06:16 WBC 12.1 H (3.8-10.6) k/uL RBC 3.77 L (4.30-5.90) m/uL Hgb 12.4 L (13.0-17.5) gm/dL Hct 38.0 L (39.0-53.0) % MCV 100.7 H (80.0-100.0) fL D-Dimer (<0.60) mg/L FEU Chloride 109 H (98-107) mmol/L BUN 39 H (9-20) mg/dL Creatinine (0.66-1.25) mg/dL Glucose 137 H (74-99) mg/dL POC Glucose (mg/dL) 133 H (70-110) mg/dL Calcium 8.3 L (8.4-10.2) mg/dL Creatine Kinase (55-170) U/L
[2024-07-08] MEDS ORDERED: NITROGLYCERIN SL TABS 0.4 MG TAB SUBLINGUAL PRN (12:23)
[2024-07-08] MEDS ORDERED: ATORVASTATIN 80 MG TAB PO STA (12:23)
[2024-07-08] MEDS ORDERED: ALPRAZolam 0.5 MG TAB PO PRN (12:23)
--- NOTE | 2024-07-08 12:26 | P.PN ---
Subjective Progress Note Date: 07/08/24 No new complaints today. Pt denies having pain anywhere. Gen: In NAD, non-toxic HEENT: normocephalic, atraumatic, hearing acuity is intant, mucous membranes moist CVS: perfusing all extremities well, no pitting edema, Respiratory: symmetric chest expansion, no accessory muscle use, GI: soft, NTTP, ND, : no suprapubic tenderness, no CVA tenderness MSK/Derm: no rashes, cyanosis Neuro: CN II-XII intact, no motor weakness, Psych: cooperative, euthymic mood, judgment and insight is intact Hospital course: Hospital Course: Patient is a 69-year-old male with diabetes, hypertension, history of CVA presenting after mechanical fall. Vitals on admission temperature 98, heart rate 88 bpm, respiratory rate 18, blood pressure 95/57, O2 saturation 95% on 2 L nasal cannula EKG independently interpreted as sinus tachycardia with ventricular rate of 127 bpm and QTc of 425 ms CXR shows no acute pulmonary process CT of head showed no acute intracranial hemorrhage or midline shift CT of cervical spine showed no acute fracture or dislocation CT of facial bones showed no acute displaced fracture, mild to moderate swelling and hematoma over the right orbit Labs on admission show WBCs 13.2 with left shift, hemoglobin 17.9, MCV 101.6 platelets 211. Sodium 141, potassium 4.2, chloride 101, bicarb 26, BUN 84, creatinine 1.94, glucose 321. Lactic acid 3.2. Calcium 9.6. Phosphorus 4.7. Magnesium 2.0. AST 24, ALT 21, ALP 84. CK 346. Troponin 0.059. UA positive for protein and glucose. Patient admitted for ADRIAN, elevated troponin. Cardiology and nephrology consulted. Assessment and Plan: Acute Hypoxemic Respiratory Failure -CXR negative -V/Q scan shows low probability -LE US duplex negative for DVT -D-dimer is elevated to 5 Acute kidney injury, likely prerenal Dehydration -Renal ultrasound was a challenging study, but no hydronephrosis identified -Continue to hold JUANPABLO inhibitor -Continue normal saline at 150 cc an hour Elevated troponin History of CVA -Likely in the setting of ADRIAN and mild rhabdomyolysis -Cardiology note reviewed, echocardiogram pending, outpatient event monitor and stress testing, metoprolol 25 twice daily -Continue aspirin 81 mg, atorvastatin 80 mg, Plavix 75 mg daily Mechanical fall Rhabdomyolysis, improving off of statin Left BKA -Leukocytosis, reactive -Continue IV fluids, repeat CK tomorrow, hold statin -PT/OT Type 2 diabetes -Continue Levemir 15 units nightly, sliding scale insulin, monitor for hypoglycemia Hypertension -Hold lisinopril DVT ppx: Lovenox Code status: Full code Anticipated discharge place: Pending clinical course Anticipated discharge time: Pending clinical course Objective - Vital Signs Vital signs: Vital Signs Temp 97.8 F 07/08/24 08:00 Pulse 74 07/08/24 11:41 Resp 18 07/08/24 11:41 BP 116/67 07/08/24 11:41 Pulse Ox 96 07/08/24 11:41 FiO2 Intake & Output 07/07/24 07/08/24 07/08/24 18:59 06:59 18:59 Intake Total 780 240 Output Total 650 700 200 Balance 130 -700 40 Weight 120 kg Intake: Oral 780 240 Output: Urine 650 700 200 Other: Voiding Method External Catheter External Catheter External Catheter - Labs CBC & Chem 7: 07/08/24 06:16 07/08/24 06:16 Labs: Abnormal Lab Results - Last 24 Hours (Table) 07/07/24 07/07/24 07/07/24 Range/Units 07:34 16:17 16:20 WBC (3.8-10.6) k/uL RBC (4.30-5.90) m/uL Hgb (13.0-17.5) gm/dL Hct (39.0-53.0) % MCV (80.0-100.0) fL D-Dimer 5.22 H (<0.60) mg/L FEU Chloride (98-107) mmol/L BUN (9-20) mg/dL Glucose (74-99) mg/dL POC Glucose (mg/dL) 148 H (70-110) mg/dL Calcium (8.4-10.2) mg/dL Creatine Kinase 1424 H* (55-170) U/L 07/07/24 07/08/24 07/08/24 Range/Units 21:01 05:55 06:16 WBC 12.1 H (3.8-10.6) k/uL RBC 3.77 L (4.30-5.90) m/uL Hgb 12.4 L (13.0-17.5) gm/dL Hct 38.0 L (39.0-53.0) % MCV 100.7 H (80.0-100.0) fL D-Dimer (<0.60) mg/L FEU Chloride (98-107) mmol/L BUN (9-20) mg/dL Glucose (74-99) mg/dL POC Glucose (mg/dL) 172 H 133 H (70-110) mg/dL Calcium (8.4-10.2) mg/dL Creatine Kinase (55-170) U/L 07/08/24 07/08/24 Range/Units 06:16 11:21 WBC (3.8-10.6) k/uL RBC (4.30-5.90) m/uL Hgb (13.0-17.5) gm/dL Hct (39.0-53.0) % MCV (80.0-100.0) fL D-Dimer (<0.60) mg/L FEU Chloride 109 H (98-107) mmol/L BUN 39 H (9-20) mg/dL Glucose 137 H (74-99) mg/dL POC Glucose (mg/dL) 132 H (70-110) mg/dL Calcium 8.3 L (8.4-10.2) mg/dL Creatine Kinase (55-170) U/L
--- NOTE | 2024-07-08 12:29 | P.PN ---
Subjective Patient is seen for follow-up for acute kidney injury. Renal function has improved. Serum creatinine down to 1.0 g/dL. No significant complaints. Maintained on IV fluids. Objective - Vital Signs Vital signs: Vital Signs Temp 97.8 F 07/08/24 08:00 Pulse 74 07/08/24 11:41 Resp 18 07/08/24 11:41 BP 116/67 07/08/24 11:41 Pulse Ox 96 07/08/24 11:41 FiO2 Intake & Output 07/07/24 07/08/24 07/08/24 18:59 06:59 18:59 Intake Total 780 240 Output Total 650 700 200 Balance 130 -700 40 Weight 120 kg Intake: Oral 780 240 Output: Urine 650 700 200 Other: Voiding Method External Catheter External Catheter External Catheter - Exam Patient is awake, comfortable, no acute distress. Superficial laceration noted on the face Examination of the heart S1 and S2 Examination of the lungs bilateral breath sounds are heard Examination of lower extremities shows left BKA, trace edema noted EMPLOYMENT COACH exam shows patient is moving all 4 extremities - Labs CBC & Chem 7: 07/08/24 06:16 07/08/24 06:16 Labs: Abnormal Lab Results - Last 24 Hours (Table) 07/07/24 07/07/24 07/07/24 Range/Units 07:34 16:17 16:20 WBC (3.8-10.6) k/uL RBC (4.30-5.90) m/uL Hgb (13.0-17.5) gm/dL Hct (39.0-53.0) % MCV (80.0-100.0) fL D-Dimer 5.22 H (<0.60) mg/L FEU Chloride (98-107) mmol/L BUN (9-20) mg/dL Glucose (74-99) mg/dL POC Glucose (mg/dL) 148 H (70-110) mg/dL Calcium (8.4-10.2) mg/dL Creatine Kinase 1424 H* (55-170) U/L 07/07/24 07/08/24 07/08/24 Range/Units 21:01 05:55 06:16 WBC 12.1 H (3.8-10.6) k/uL RBC 3.77 L (4.30-5.90) m/uL Hgb 12.4 L (13.0-17.5) gm/dL Hct 38.0 L (39.0-53.0) % MCV 100.7 H (80.0-100.0) fL D-Dimer (<0.60) mg/L FEU Chloride (98-107) mmol/L BUN (9-20) mg/dL Glucose (74-99) mg/dL POC Glucose (mg/dL) 172 H 133 H (70-110) mg/dL Calcium (8.4-10.2) mg/dL Creatine Kinase (55-170) U/L 07/08/24 07/08/24 Range/Units 06:16 11:21 WBC (3.8-10.6) k/uL RBC (4.30-5.90) m/uL Hgb (13.0-17.5) gm/dL Hct (39.0-53.0) % MCV (80.0-100.0) fL D-Dimer (<0.60) mg/L FEU Chloride 109 H (98-107) mmol/L BUN 39 H (9-20) mg/dL Glucose 137 H (74-99) mg/dL POC Glucose (mg/dL) 132 H (70-110) mg/dL Calcium 8.3 L (8.4-10.2) mg/dL Creatine Kinase (55-170) U/L Assessment and Plan Assessment: 1. Acute kidney injury ATN secondary to hypotension and significant volume depletion, improving. UA shows 2+ protein. No obstruction noted on ultrasound of the kidneys 2. Status post fall, no fractures noted. 3. Mildly elevated troponin 4. History of CVA 5. History of hypertension with blood pressure currently low 6. Rhabdomyolysis with CK increasing to 5138 yesterday Plan: Continue off of statins Repeat CK today Continue with IV fluids, decrease rate.
[2024-07-08 16:12] LABS: Glucose,Whole Blood 200 mg/dL (70-110)
[2024-07-08 20:20] LABS: Glucose,Whole Blood 111 mg/dL (70-110)
[2024-07-09] MEDS: ATORVASTATIN 80 MG TAB PO ONE (05:30)
[2024-07-09 06:17] LABS: Glucose,Whole Blood 109 mg/dL (70-110)
[2024-07-09 06:19] LABS: Basophils % (A) 0 %; Eosinophils # (A) 0.2 k/uL (0-0.7); Eosinophils % (A) 2 %; HCT 40.4 % (39.0-53.0); Lymphocytes % (A) 10 %; MCH 32.6 pg (25.0-35.0); MCHC 32.3 g/dL (31.0-37.0); MCV 100.9 fL (80.0-100.0); Mean Platelet Volume 9.5; Monocytes # (A) 0.4 k/uL (0-1.0); Monocytes % (A) 4 %; Neutrophils % (A) 82 %; Platelet Count 164 k/uL (150-450); RDW 12.2 % (11.5-15.5); WBC 9.8 k/uL (3.8-10.6)
[2024-07-09 06:29] LABS: African American GFR (CKD) >90 (>60 ml/min/1.73 sqM); Anion Gap 9 mmol/L; Blood Urea Nitrogen 23 mg/dL (9-20); Calcium 8.4 mg/dL (8.4-10.2); Carbon Dioxide 23 mmol/L (22-30); Chloride 109 mmol/L (98-107); Glucose 112 mg/dL (74-99); Magnesium 1.5 mg/dL (1.6-2.3); Non-African American GFR(CKD) 89 (>60 ml/min/1.73 sqM); Potassium 3.5 mmol/L (3.5-5.1); Sodium 141 mmol/L (137-145)
[2024-07-09] MEDS: ASPIRIN 81 MG PO STA (09:55)
--- NOTE | 2024-07-09 10:01 | P.PN ---
Subjective Patient is seen in follow-up for acute kidney injury. Renal function at baseline. On IV fluids. Scheduled for cardiac catheterization today. Vital signs are stable. General: No acute distress. HEENT: Head exam is unremarkable. LUNGS: No audible rhonchi or wheezes. HEART: Rate and Rhythm are regular. ABDOMEN: Nontender. EXTREMITITES: No edema. Objective - Vital Signs Vital signs: Vital Signs Temp 98.3 F 07/09/24 04:00 Pulse 89 07/09/24 04:00 Resp 18 07/09/24 04:00 BP 136/78 07/09/24 04:00 Pulse Ox 96 07/09/24 04:00 FiO2 Intake & Output 07/08/24 07/09/24 07/09/24 18:59 06:59 18:59 Intake Total 570 400 Output Total 450 600 Balance 120 -200 Weight 109.5 kg Intake: IV 400 Sodium Chloride 0.9% 1, 400 000 ml @ 50 mls/hr IV . Q20H [facility] Rx#:[id number] Oral 570 Output: Urine 450 600 Other: Voiding Method External Catheter External Catheter - Labs CBC & Chem 7: 07/09/24 05:26 07/09/24 05:26 Labs: Abnormal Lab Results - Last 24 Hours (Table) 07/08/24 07/08/24 07/08/24 Range/Units 11:21 16:10 20:19 RBC (4.30-5.90) m/uL MCV (80.0-100.0) fL Neutrophils # (1.3-7.7) k/uL Chloride (98-107) mmol/L BUN (9-20) mg/dL Glucose (74-99) mg/dL POC Glucose (mg/dL) 132 H 200 H 111 H (70-110) mg/dL Magnesium (1.6-2.3) mg/dL 07/09/24 07/09/24 Range/Units 05:26 05:26 RBC 4.00 L (4.30-5.90) m/uL MCV 100.9 H (80.0-100.0) fL Neutrophils # 8.0 H (1.3-7.7) k/uL Chloride 109 H (98-107) mmol/L BUN 23 H (9-20) mg/dL Glucose 112 H (74-99) mg/dL POC Glucose (mg/dL) (70-110) mg/dL Magnesium 1.5 L (1.6-2.3) mg/dL Assessment and Plan Plan: Assessment: 1. Acute kidney injury secondary to ATN secondary to hypotension, hypovolemia. No hydronephrosis noted on ultrasound. Creatinine 1.94 on admission and is down to 0.88 today. 2. Rhabdomyolysis. CK levels trending down. 3. Status post fall. 4. Elevated troponins. Cardiology following. Cardiac cath today. 5. Benign hypertension. Plan: Increase your of normal saline to 75 cc an hour. Decrease rate back to 50 cc an hour 4 hours after cardiac catheterization. Avoid nephrotoxins. Continue to monitor renal function and urine output. Discussed with patient the risk of worsening renal function post IV contrast exposure. He understands.
--- NOTE | 2024-07-09 12:23 | P.PN ---
Subjective Progress Note Date: 07/09/24 No new complaints today. Scheduled for cardiac catheterization today. Gen: In NAD, non-toxic HEENT: normocephalic, atraumatic, hearing acuity is intant, mucous membranes moist CVS: perfusing all extremities well, no pitting edema, Respiratory: symmetric chest expansion, no accessory muscle use, GI: soft, NTTP, ND, : no suprapubic tenderness, no CVA tenderness MSK/Derm: no rashes, cyanosis Neuro: CN II-XII intact, no motor weakness, Psych: cooperative, euthymic mood, judgment and insight is intact Hospital course: Hospital Course: Patient is a 69-year-old male with diabetes, hypertension, history of CVA presenting after mechanical fall. Vitals on admission temperature 98, heart rate 88 bpm, respiratory rate 18, blood pressure 95/57, O2 saturation 95% on 2 L nasal cannula EKG independently interpreted as sinus tachycardia with ventricular rate of 127 bpm and QTc of 425 ms CXR shows no acute pulmonary process CT of head showed no acute intracranial hemorrhage or midline shift CT of cervical spine showed no acute fracture or dislocation CT of facial bones showed no acute displaced fracture, mild to moderate swelling and hematoma over the right orbit Labs on admission show WBCs 13.2 with left shift, hemoglobin 17.9, MCV 101.6 platelets 211. Sodium 141, potassium 4.2, chloride 101, bicarb 26, BUN 84, creatinine 1.94, glucose 321. Lactic acid 3.2. Calcium 9.6. Phosphorus 4.7. Magnesium 2.0. AST 24, ALT 21, ALP 84. CK 346. Troponin 0.059. UA positive for protein and glucose. Patient admitted for ADRIAN, elevated troponin. Cardiology and nephrology consulted. Assessment and Plan: Acute Hypoxemic Respiratory Failure -CXR negative -V/Q scan shows low probability -LE US duplex negative for DVT -D-dimer is elevated to 5 Acute kidney injury, likely prerenal Dehydration -Renal ultrasound was a challenging study, but no hydronephrosis identified -Continue to hold JUANPABLO inhibitor -Continue normal saline at 150 cc an hour Elevated troponin History of CVA -Likely in the setting of ADRIAN and mild rhabdomyolysis -Cardiology note reviewed, [facility] scheduled today -Continue aspirin 81 mg, atorvastatin 80 mg, Plavix 75 mg daily Mechanical fall Rhabdomyolysis, improving off of statin Left BKA -Leukocytosis, reactive -Continue IV fluids, repeat CK tomorrow, hold statin -PT/OT Type 2 diabetes -Continue Levemir 15 units nightly, sliding scale insulin, monitor for hypogl ycemia Hypertension -Hold lisinopril DVT ppx: Lovenox Code status: Full code Anticipated discharge place: Pending clinical course Anticipated discharge time: Pending clinical course Objective - Vital Signs Vital signs: Vital Signs Temp 99 F 07/09/24 08:10 Pulse 79 07/09/24 08:10 Resp 16 07/09/24 08:10 BP 136/69 07/09/24 08:10 Pulse Ox 95 07/09/24 08:10 FiO2 Intake & Output 07/08/24 07/09/24 07/09/24 18:59 06:59 18:59 Intake Total 570 400 Output Total 450 600 Balance 120 -200 Weight 109.5 kg Intake: IV 400 Sodium Chloride 0.9% 1, 400 000 ml @ 50 mls/hr IV . Q20H [facility] Rx#:[id number] Oral 570 Output: Urine 450 600 Other: Voiding Method External Catheter External Catheter External Catheter - Labs CBC & Chem 7: 07/09/24 05:26 07/09/24 05:26 Labs: Abnormal Lab Results - Last 24 Hours (Table) 07/08/24 07/08/24 07/09/24 Range/Units 16:10 20:19 05:26 RBC 4.00 L (4.30-5.90) m/uL MCV 100.9 H (80.0-100.0) fL Neutrophils # 8.0 H (1.3-7.7) k/uL Chloride (98-107) mmol/L BUN (9-20) mg/dL Glucose (74-99) mg/dL POC Glucose (mg/dL) 200 H 111 H (70-110) mg/dL Magnesium (1.6-2.3) mg/dL 07/09/24 Range/Units 05:26 RBC (4.30-5.90) m/uL MCV (80.0-100.0) fL Neutrophils # (1.3-7.7) k/uL Chloride 109 H (98-107) mmol/L BUN 23 H (9-20) mg/dL Glucose 112 H (74-99) mg/dL POC Glucose (mg/dL) (70-110) mg/dL Magnesium 1.5 L (1.6-2.3) mg/dL
[2024-07-09] MEDS: SODIUM CHLORIDE 0.9% 1,000 ML IV ONE (14:23)
[2024-07-09] MEDS: HEPARIN SODIUM,PORCINE 10,000 UNIT in SODIUM CHLORIDE 0.9% 1,000 ML IRRIGATION PRN (14:23)
[2024-07-09] MEDS: HEPARIN SODIUM,PORCINE (1 ML) 2,500 UNIT in SODIUM CHLORIDE 0.9% 250 ML IRRIGATION PRN (14:23)
--- NOTE | 2024-07-09 14:28 | P.PN ---
Subjective Progress Note Date: 07/09/24 HISTORY OF PRESENT ILLNESS: This is a 69-year-old male with a past medical history significant for hype rtension, diabetes, hyperlipidemia, and CVA. Patient does not follow with a artificial insemination technician. We have been asked to see the patient in consultation for bated troponins. Patient examined at the bedside emergency room. Patient presented to the hospital after he was found laying on his floor in his apartment by a friend. Patient states he was laying on the floor for 6 weeks, however actual time down is unknown. The patient states that he tripped and denies having any syncope. The patient currently denies any chest pain or pressure. He denies any shortness of breath. Patient was found to have acute kidney injury and is receiving IV fluids. Patient does have a history of CVA back in 2019. He denies any known history of atrial fibrillation. Telemetry reveals sinus mechanism with significant ectopy. Blood pressure stable. He reports a family history of CAD in his dad but states unsure at what age. He is a current smoker. He denies any alcohol use. Denies any drug use including marijuana DIAGNOSTICS: - EKG reveals sinus mechanism with PACs. - Chest xray negative for acute process - Laboratory data: WBC 11.5. Hemoglobin 16.1. Platelet count 198. Sodium 141. Potassium 3.9. BUN 86. Creatinine 1.78. Creatinine kinase 346. Troponin 0.059. 0.064. 0.068. - Current home cardiac medications include lisinopril 10 mg daily, Plavix 75 mg daily, Lipitor 40 mg at night. - Most recent echocardiogram obtained in 2019 reveals ejection fraction 55 to 60%, trace MR, trace TR. - Cardiac catheterization history: Patient denies 07/06/2024 He has been doing okay. Denies any chest pain or shortness of breath. WBC 10.9. Echo was taken however report is still pending. 07/07/2024 Patient laying in bed, flat affect, no specific complaints. Denies any chest pain or shortness of breath. He is not eating much. Echocardiogram does show EF with 35-40%, mild aortic stenosis, mild mitral stenosis, aortic root 4.3 cm. 07/08/2024 Patient is more awake and alert today. He has no complaints. Creat 1.04, improved. 07/09/2024 Patient seen and examined. Patient is scheduled for left heart catheterization today with Dr. Harris. Repeat blood work reveals creatinine is 0.88. Blood pressure 136/69, heart rate 79. PHYSICAL EXAM: VITAL SIGNS: Reviewed. GENERAL: Well-developed in no acute distress. HEENT: Head is normocephalic. Pupils are equal, round. Sclerae anicteric. Mucous membranes of the mouth are moist. Neck supple. No JVD or thyromegaly LUNGS: Respirations even and unlabored. Lungs essentially clear to auscultation bilaterally. HEART: Irregular rate and rhythm. S1 and S2 heard. Systolic murmur noted ABDOMEN: Soft. Nondistended. Nontender. EXTREMITIES: No clubbing or cyanosis. Peripheral pulses intact. Left BKA. NEUROLOGIC: Awake and alert. Oriented x 3. ASSESSMENT: Status post mechanical fall without evidence of syncope Acute kidney injury Elevated troponins, flat, likely secondary to poor renal clearance, no evidence of myocardial injury or ischemia History of left BKA History of hypertension History of CVA Diabetes Nicotine/tobacco dependence Mild aortic stenosis Mild mitral stenosis Aortic root 4.3 cm PLAN: Echocardiogram does show decrease in EF. Will work to optimize heart failure regimen and resume lisinopril at 2.5 mg, and Lopressor discontinued. May be related to Takotsubo's. Patient is scheduled for left heart cath today with Dr. Harris Further recommendations pending patient course Nurse practitioner note has been reviewed, I agree with documented findings and plan of care. Patient was seen and examined. Objective - Vital Signs Vital signs: Vital Signs Temp 99 F 07/09/24 08:10 Pulse 79 07/09/24 08:10 Resp 16 07/09/24 08:10 BP 136/69 07/09/24 08:10 Pulse Ox 95 07/09/24 08:10 FiO2 Intake & Output 07/08/24 07/09/24 07/09/24 18:59 06:59 18:59 Intake Total 570 400 Output Total 450 600 Balance 120 -200 Weight 109.5 kg Intake: IV 400 Sodium Chloride 0.9% 1, 400 000 ml @ 50 mls/hr IV . Q20H [facility] Rx#:[id number] Oral 570 Output: Urine 450 600 Other: Voiding Method External Catheter External Catheter External Catheter - Labs CBC & Chem 7: 07/09/24 05:26 07/09/24 05:26 Labs: Abnormal Lab Results - Last 24 Hours (Table) 07/08/24 07/08/24 07/08/24 Range/Units 11:21 16:10 20:19 RBC (4.30-5.90) m/uL MCV (80.0-100.0) fL Neutrophils # (1.3-7.7) k/uL Chloride (98-107) mmol/L BUN (9-20) mg/dL Glucose (74-99) mg/dL POC Glucose (mg/dL) 132 H 200 H 111 H (70-110) mg/dL Magnesium (1.6-2.3) mg/dL 07/09/24 07/09/24 Range/Units 05:26 05:26 RBC 4.00 L (4.30-5.90) m/uL MCV 100.9 H (80.0-100.0) fL Neutrophils # 8.0 H (1.3-7.7) k/uL Chloride 109 H (98-107) mmol/L BUN 23 H (9-20) mg/dL Glucose 112 H (74-99) mg/dL POC Glucose (mg/dL) (70-110) mg/dL Magnesium 1.5 L (1.6-2.3) mg/dL
[2024-07-09] MEDS: MIDAZOLAM 2 MG/2 ML VIAL IVP ONE (14:33)
[2024-07-09] MEDS: LIDOCAINE 1% INJ 10MG/ML (20 ML MDV) SQ ONE (14:33)
[2024-07-09] MEDS: fentaNYL (PF) 50 MCG/1 ML VIAL IVP ONE (14:33)
[2024-07-09] MEDS: VERAPAMIL SYRINGE (5 MG/10 ML) INTRAARTER ONE (14:33)
[2024-07-09] MEDS: HEPARIN SODIUM 1,000 UN/ML (10ML VL) IVP ONE (14:38)
[2024-07-09] MEDS: PHENYLEPHRINE-0.9% NACL SYG 1,000 MCG/10 ML SYRINGE IVP ONE (14:58)
[2024-07-09] MEDS: NITROGLYCERIN 1000MCG/10ML SYRINGE INTRACORON ONE (15:09)
[2024-07-09] MEDS: IOPAMIDOL-370 100ML BTL INJ ONE ×2 (15:17)
[2024-07-09] MEDS: CLOPIDOGREL 75 MG TAB PO ONE (15:18)
[2024-07-09] MEDS ORDERED: RX INFO: IV CONTRAST WAS GIVEN 1 EACH MISC MISCELLANE PRN (15:25)
[2024-07-09] MEDS ORDERED: ATROPINE SULFATE 0.1 MG/ML 10ML SYRINGE IV PRN (15:25)
[2024-07-09] MEDS ORDERED: MAG HYDROX/AL HYDROX/SIMETH 30 ML CUP PO PRN (15:25)
--- NOTE | 2024-07-09 15:32 | P.PRCINT ---
Percutaneous Coronary Int. - Percutaneous Coronary Intervention Percutaneous Coronary Intervention: PROCEDURES PERFORMED: Left heart catheterization, bilateral coronary angiography, ultrasound guided arterial access, shockwave lithotripsy LAD with a 2.5 balloon, PCI mid LAD with a 2.5 x 48mm Xience JOE, post dilated with a 3.0mm NC balloon INDICATION: Cardiomyopathy, NSTEMI, NYHA class 4 symptoms CONSENT:The risks, benefits and alternative therapies for the above-mentioned procedure and for both sedation/analgesia as well as necessary blood product administration, if indicated, as they pertain to this patient were discussed with the patient. The patient has indicated understanding and acceptance of the risks and procedures discussed. PROCEDURE: After the risks, benefits and alternatives of the above mentioned procedure explained in detail with the patient, informed consent was obtained. Patient was taken to the catheterization lab and prepped and draped in usual fashion. Ultrasound guidance was used to assess for arterial access. 1% lidocaine was used to anesthetize the right radial artery. A 6-Grenadian sheath was placed in the right radial artery using modified Seldinger technique and ultrasound guidance. Left coronary angiography was performed with a 5-Grenadian JL 3.5 catheter and right coronary angiography was performed with a 5-Grenadian FR5 catheter in various views. A 5-Grenadian FR5 catheter was inserted into the left ventricle and pressure measurements were obtained. the decision was made to perform PCI of LAD. A 6-Grenadian CLS 4.0 guide was used engage the left main. Heparin was given for ACT greater than 250. A 0.014 BMW wire was advanced in the distal LAD. Predilation was performed with a 2.5 x 15 mm noncompliant balloon. Next shock wave lithotripsy was performed with a 2.5 mm balloon. Next a 2.5 x 48 mm drug-eluting stent was placed. The stent was postdilated with a 3.0 mm noncompliant balloon. Final angiograms were performed. Preintervention there was 90% stenosis and long area of diffuse stenosis and calcification with TIMIA 3 flow and post intervention there was less than 10% stenosis with HOMERO 3 flow. The right radial sheath was removed and a TR band was placed with hemostasis achieved. The patient tolerated the procedure well. Patient was transported b [facility] to the post catheterization holding area in stable condition. Conscious Sedation: Patient was monitored under the direct supervision of myself for conscious sedation using Versed and fentanyl for a total duration of 50 minutes HEMODYNAMICS: Ao: 135/78 LV: 139/2, LVEPD 5 SELECTIVE CORONARY ARTERIOGRAPHY: LEFT MAIN: The left main is a large caliber vessel which bifurcates into the LAD and circumflex. There is no significant stenosis. LEFT ANTERIOR DESCENDING CORONARY ARTERY: LAD is a large caliber vessel which wraps around to the apex. There is a long area of diffuse proximal to mid LAD stenosis with more focal pain on 80% and 90% mid LAD stenosis. Otherwise there are mild luminal irregularities. There appears to be an apical small subtotal occlusion. LEFT CIRCUMFLEX CORONARY ARTERY: Left circumflex is a moderate caliber vessel which gives off a proximal OM1 which is moderate to large caliber and has a mid OM1 100% stenosis. Then gives off a small caliber OM 2 branch with mild diffuse 30-40% stenosis. RIGHT CORONARY ARTERY: The right coronary artery is a large caliber vessel which gives off a PDA and PLV branch and is the dominant vessel. There is a mid RCA 50-60% stenosis and otherwise mild luminal irregularities. There are right to left collaterals to the OM1 FINAL IMPRESSION: 1. CAD as described above including mid LAD 90%, circumflex 30-40%, OM1 100%, RCA 50-60% stenosis with right to left collaterals. 2. Low normal left sided filling pressures 3. S/p PCI mid LAD with a 2.5 x 48mm Xience JOE, post dilated with a 3.0mm NC balloon PLAN: 1. Aggressive risk factor modification per most recent ACC/AHA guidelines. 2. Continue dual antiplatelets with aspirin and Plavix for 12 months
[2024-07-09 16:29] LABS: Glucose,Whole Blood 139 mg/dL (70-110)
[2024-07-09] MEDS: SODIUM CHLORIDE 0.9% 1,000 ML in EMPTY BAG 1 BAG IV SCH (17:28)
[2024-07-09 20:07] LABS: Glucose,Whole Blood 181 mg/dL (70-110)
[2024-07-10] MEDS ORDERED: Magnesium Replacement Protocol 1 EACH MISC MISCELLANE PRN (01:17)
[2024-07-10] MEDS: MAGNESIUM SULFATE-D5W PMX 1 GM in DEXTROSE/WATER 1 100ML.BAG IVPB SCH (01:26)
[2024-07-10 05:39] LABS: Glucose,Whole Blood 212 mg/dL (70-110)
[2024-07-10 07:44] LABS: Basophils % (A) 0 %; Eosinophils # (A) 0.1 k/uL (0-0.7); Eosinophils % (A) 1 %; HCT 45.2 % (39.0-53.0); HGB 14.2 gm/dL (13.0-17.5); Lymphocytes # (A) 0.5 k/uL (1.0-4.8); Lymphocytes % (A) 5 %; MCH 31.7 pg (25.0-35.0); MCHC 31.4 g/dL (31.0-37.0); MCV 101.1 fL (80.0-100.0); Mean Platelet Volume 8.8; Monocytes # (A) 0.3 k/uL (0-1.0); Monocytes % (A) 3 %; Neutrophils # (A) 8.7 k/uL (1.3-7.7); Neutrophils % (A) 90 %; Platelet Count 175 k/uL (150-450); RBC 4.47 m/uL (4.30-5.90); RDW 12.2 % (11.5-15.5); WBC 9.7 k/uL (3.8-10.6)
[2024-07-10 07:56] LABS: African American GFR (CKD) >90 (>60 ml/min/1.73 sqM); Anion Gap 9 mmol/L; Blood Urea Nitrogen 18 mg/dL (9-20); Calcium 8.3 mg/dL (8.4-10.2); Carbon Dioxide 22 mmol/L (22-30); Chloride 107 mmol/L (98-107); Glucose 114 mg/dL (74-99); Magnesium 1.8 mg/dL (1.6-2.3); Non-African American GFR(CKD) 89 (>60 ml/min/1.73 sqM); Potassium 3.3 mmol/L (3.5-5.1); Sodium 138 mmol/L (137-145)
[2024-07-10] MEDS: ATORVASTATIN 40 MG TAB PO SCH (08:50)
--- NOTE | 2024-07-10 10:54 | P.PN ---
Subjective Patient is seen in follow-up for acute kidney injury. Renal function at baseline. On IV fluids. Underwent cardiac catheterization yesterday with stent to the LAD. Vital signs are stable. General: No acute distress. HEENT: Head exam is unremarkable. LUNGS: No audible rhonchi or wheezes. HEART: Rate and Rhythm are regular. ABDOMEN: Nontender. EXTREMITITES: No edema. Objective - Vital Signs Vital signs: Vital Signs Temp 99.2 F 07/10/24 03:45 Pulse 84 07/10/24 03:45 Resp 20 07/10/24 03:45 BP 129/68 07/10/24 03:45 Pulse Ox 92 L 07/10/24 03:45 FiO2 Intake & Output 07/09/24 07/10/24 07/10/24 18:59 06:59 18:59 Intake Total 530 740 Balance 530 740 Weight 111 kg Intake: IV 530 620 Invasive Line 2 20 Sodium Chloride 0.9% 1, 600 000 ml @ 50 mls/hr IV . Q20H [facility] Rx#:[id number] Oral 120 Other: Voiding Method External Catheter Diaper Incontinent # Voids 3 - Labs CBC & Chem 7: 07/10/24 06:36 07/10/24 06:36 Labs: Abnormal Lab Results - Last 24 Hours (Table) 07/09/24 07/09/24 07/10/24 Range/Units 16:27 20:05 05:37 MCV (80.0-100.0) fL Neutrophils # (1.3-7.7) k/uL Lymphocytes # (1.0-4.8) k/uL Potassium (3.5-5.1) mmol/L Glucose (74-99) mg/dL POC Glucose (mg/dL) 139 H 181 H 212 H (70-110) mg/dL Calcium (8.4-10.2) mg/dL 07/10/24 07/10/24 Range/Units 06:36 06:36 MCV 101.1 H (80.0-100.0) fL Neutrophils # 8.7 H (1.3-7.7) k/uL Lymphocytes # 0.5 L (1.0-4.8) k/uL Potassium 3.3 L (3.5-5.1) mmol/L Glucose 114 H (74-99) mg/dL POC Glucose (mg/dL) (70-110) mg/dL Calcium 8.3 L (8.4-10.2) mg/dL Assessment and Plan Plan: Assessment: 1. Acute kidney injury secondary to ATN secondary to hypotension, hypovolemia. No hydronephrosis noted on ultrasound. Creatinine 1.94 on admission and is stable at 0.86 today. 2. Rhabdomyolysis. CK levels trending down. 3. Status post fall. 4. Elevated troponins. Cardiology following. Status post cardiac catheterization July 09, 2024 with LAD stent placement. 5. Benign hypertension. Controlled. 6. Diabetes mellitus. 7. Proteinuria. This may be from underlying diabetic kidney disease. Further workup outpatient. Plan: Hep-Lock IV fluids. Add SGLT2 inhibitor. Replace potassium. Avoid nephrotoxins. Continue to monitor renal function and urine output. Repeat BMP and magnesium level 2 to 3 days postdischarge. Follow-up outpatient in 1 week. Case discussed with cardiology.
[2024-07-10 11:21] LABS: Glucose,Whole Blood 68 mg/dL (70-110)
[2024-07-10] MEDS ORDERED: ZINC OXIDE PASTE (Z-GUARD) 1 APPLIC TOPICAL PRN (12:36)
--- NOTE | 2024-07-10 12:52 | P.PN ---
Subjective Progress Note Date: 07/10/24 HISTORY OF PRESENT ILLNESS: This is a 69-year-old male with a past medical history significant for hype rtension, diabetes, hyperlipidemia, and CVA. Patient does not follow with a film historian. We have been asked to see the patient in consultation for bated troponins. Patient examined at the bedside emergency room. Patient presented to the hospital after he was found laying on his floor in his apartment by a friend. Patient states he was laying on the floor for 6 weeks, however actual time down is unknown. The patient states that he tripped and denies having any syncope. The patient currently denies any chest pain or pressure. He denies any shortness of breath. Patient was found to have acute kidney injury and is receiving IV fluids. Patient does have a history of CVA back in 2019. He denies any known history of atrial fibrillation. Telemetry reveals sinus mechanism with significant ectopy. Blood pressure stable. He reports a family history of CAD in his dad but states unsure at what age. He is a current smoker. He denies any alcohol use. Denies any drug use including marijuana DIAGNOSTICS: - EKG reveals sinus mechanism with PACs. - Chest xray negative for acute process - Laboratory data: WBC 11.5. Hemoglobin 16.1. Platelet count 198. Sodium 141. Potassium 3.9. BUN 86. Creatinine 1.78. Creatinine kinase 346. Troponin 0.059. 0.064. 0.068. - Current home cardiac medications include lisinopril 10 mg daily, Plavix 75 mg daily, Lipitor 40 mg at night. - Most recent echocardiogram obtained in 2019 reveals ejection fraction 55 to 60%, trace MR, trace TR. - Cardiac catheterization history: Patient denies 07/06/2024 He has been doing okay. Denies any chest pain or shortness of breath. WBC 10.9. Echo was taken however report is still pending. 07/07/2024 Patient laying in bed, flat affect, no specific complaints. Denies any chest pain or shortness of breath. He is not eating much. Echocardiogram does show EF with 35-40%, mild aortic stenosis, mild mitral stenosis, aortic root 4.3 cm. 07/08/2024 Patient is more awake and alert today. He has no complaints. Creat 1.04, improved. 07/09/2024 Patient seen and examined. Patient is scheduled for left heart catheterization today with Dr. Harris. Repeat blood work reveals creatinine is 0.88. Blood pressure 136/69, heart rate 79. 07/10/2024 Patient seen and examined. Yesterday, he underwent cardiac catheterization with Dr. Harris which revealed CAD with mid LAD 90%, circumflex 30 to 40%, OM1 100%, RCA 50 to 60% stenosis with right to left collaterals. Low normal left- sided filling pressures. Patient underwent PCI of the LAD. Patient is on aspirin and Plavix for 12 months. Patient noted to have a fever 100.6, heart rate 109, blood pressure 177/89, pulse ox 92% on 3 L. There is concern that patient is aspirating and is refusing special diet. PHYSICAL EXAM: VITAL SIGNS: Reviewed. GENERAL: Well-developed in no acute distress. HEENT: Head is normocephalic. Pupils are equal, round. Sclerae anicteric. Mucous membranes of the mouth are moist. Neck supple. No JVD or thyromegaly LUNGS: Respirations even and unlabored. Lungs essentially clear to auscultation bilaterally. HEART: Irregular rate and rhythm. S1 and S2 heard. Systolic murmur noted ABDOMEN: Soft. Nondistended. Nontender. EXTREMITIES: No clubbing or cyanosis. Peripheral pulses intact. Left BKA. NEUROLOGIC: Awake and alert. Oriented x 3. ASSESSMENT: Status post mechanical fall without evidence of syncope Acute kidney injury Elevated troponins, flat, likely secondary to poor renal clearance, no evidence of myocardial injury or ischemia History of left BKA History of hypertension History of CVA Diabetes Nicotine/tobacco dependence Mild aortic stenosis Mild mitral stenosis Aortic root 4.3 cm PLAN: Continue patient on aspirin 81 mg daily, Plavix 75 mg daily for 12 months Continue atorvastatin, metoprolol tartrate 25 mg twice daily Continue patient on lisinopril at 2.5 mg Add amlodipine 5 mg daily Recommend monitoring patient overnight due to fever. Nurse practitioner note has been reviewed, I agree with documented findings and plan of care. Patient was seen and examined. Objective - Vital Signs Vital signs: Vital Signs Temp 99.2 F 07/10/24 03:45 Pulse 84 07/10/24 03:45 Resp 20 07/10/24 03:45 BP 129/68 07/10/24 03:45 Pulse Ox 92 L 07/10/24 03:45 FiO2 Intake & Output 07/09/24 07/10/24 07/10/24 18:59 06:59 18:59 Intake Total 530 740 Balance 530 740 Weight 111 kg Intake: IV 530 620 Invasive Line 2 20 Sodium Chloride 0.9% 1, 600 000 ml @ 50 mls/hr IV . Q20H [facility] Rx#:[id number] Oral 120 Other: Voiding Method External Catheter Diaper Incontinent # Voids 3 - Labs CBC & Chem 7: 07/10/24 06:36 07/10/24 06:36 Labs: Abnormal Lab Results - Last 24 Hours (Table) 07/09/24 07/09/24 07/10/24 Range/Units 16:27 20:05 05:37 MCV (80.0-100.0) fL Neutrophils # (1.3-7.7) k/uL Lymphocytes # (1.0-4.8) k/uL Potassium (3.5-5.1) mmol/L Glucose (74-99) mg/dL POC Glucose (mg/dL) 139 H 181 H 212 H (70-110) mg/dL Calcium (8.4-10.2) mg/dL 07/10/24 07/10/24 Range/Units 06:36 06:36 MCV 101.1 H (80.0-100.0) fL Neutrophils # 8.7 H (1.3-7.7) k/uL Lymphocytes # 0.5 L (1.0-4.8) k/uL Potassium 3.3 L (3.5-5.1) mmol/L Glucose 114 H (74-99) mg/dL POC Glucose (mg/dL) (70-110) mg/dL Calcium 8.3 L (8.4-10.2) mg/dL
[2024-07-10] MEDS: POTASSIUM CHLORIDE ER 20 MEQ TAB.ER PO STA (13:19)
[2024-07-10] MEDS: amLODIPine 5 MG TAB PO SCH (13:19)
[2024-07-10] MEDS: DAPAGLIFLOZIN PROPANEDIOL 5 MG TABLET PO SCH (13:19)
--- NOTE | 2024-07-10 14:38 | P.PN ---
Subjective Progress Note Date: 07/10/24 No new complaints today. s/p [facility] with stent to LAD Gen: In NAD, non-toxic HEENT: normocephalic, atraumatic, hearing acuity is intant, mucous membranes moist CVS: perfusing all extremities well, no pitting edema, Respiratory: symmetric chest expansion, no accessory muscle use, GI: soft, NTTP, ND, : no suprapubic tenderness, no CVA tenderness MSK/Derm: no rashes, cyanosis Neuro: CN II-XII intact, no motor weakness, Psych: cooperative, euthymic mood, judgment and insight is intact Hospital course: Hospital Course: Patient is a 69-year-old male with diabetes, hypertension, history of CVA pr esenting after mechanical fall. Vitals on admission temperature 98, heart rate 88 bpm, respiratory rate 18, blood pressure 95/57, O2 saturation 95% on 2 L nasal cannula EKG independently interpreted as sinus tachycardia with ventricular rate of 127 bpm and QTc of 425 ms CXR shows no acute pulmonary process CT of head showed no acute intracranial hemorrhage or midline shift CT of cervical spine showed no acute fracture or dislocation CT of facial bones showed no acute displaced fracture, mild to moderate swelling and hematoma over the right orbit Labs on admission show WBCs 13.2 with left shift, hemoglobin 17.9, MCV 101.6 platelets 211. Sodium 141, potassium 4.2, chloride 101, bicarb 26, BUN 84, creatinine 1.94, glucose 321. Lactic acid 3.2. Calcium 9.6. Phosphorus 4.7. Magnesium 2.0. AST 24, ALT 21, ALP 84. CK 346. Troponin 0.059. UA positive for protein and glucose. Patient admitted for ADRIAN, elevated troponin. Cardiology and nephrology consulted. Assessment and Plan: Acute Hypoxemic Respiratory Failure -CXR negative -V/Q scan shows low probability -LE US duplex negative for DVT -D-dimer is elevated to 5 Acute kidney injury, likely prerenal Dehydration -Renal ultrasound was a challenging study, but no hydronephrosis identified -Continue to hold JUANPABLO inhibitor -Continue normal saline at 150 cc an hour Elevated troponin History of CVA -Likely in the setting of ADRIAN and mild rhabdomyolysis -Cardiology note reviewed, [facility] on 07/09 with stent to LAD -Continue aspirin 81 mg, atorvastatin 80 mg, Plavix 75 mg daily Mechanical fall Elevated CK may be composed of CK-MB given LHC findings Left BKA -Leukocytosis, reactive -Continue IV fluids, resume statin -PT/OT Type 2 diabetes -Continue Levemir 15 units nightly, sliding scale insulin, monitor for hypoglycemia Hypertension -low dose lisinopril resumed DVT ppx: Lovenox Code status: Full code Anticipated discharge place: Pending clinical course Anticipated discharge time: Pending clinical course Objective - Vital Signs Vital signs: Vital Signs Temp 99.8 F H 07/10/24 12:00 Pulse 80 07/10/24 12:00 Resp 20 07/10/24 08:00 BP 110/66 07/10/24 12:00 Pulse Ox 90 L 07/10/24 12:57 FiO2 Intake & Output 07/09/24 07/10/24 07/10/24 18:59 06:59 18:59 Intake Total 530 740 200 Balance 530 740 200 Weight 111 kg Intake: IV 530 620 200 Invasive Line 2 20 Sodium Chloride 0.9% 1, 600 200 000 ml @ 50 mls/hr IV . Q20H [facility] Rx#:[id number] Oral 120 Other: Voiding Method External Catheter Diaper Diaper Incontinent Incontinent # Voids 3 - Labs CBC & Chem 7: 07/10/24 06:36 07/10/24 06:36 Labs: Abnormal Lab Results - Last 24 Hours (Table) 07/09/24 07/09/24 07/09/24 Range/Units 05:26 16:27 20:05 MCV (80.0-100.0) fL Neutrophils # (1.3-7.7) k/uL Lymphocytes # (1.0-4.8) k/uL Potassium (3.5-5.1) mmol/L Glucose (74-99) mg/dL POC Glucose (mg/dL) 139 H 181 H (70-110) mg/dL Calcium (8.4-10.2) mg/dL Total Creatine Kinase 321 H (30-223) u/L 07/10/24 07/10/24 07/10/24 Range/Units 05:37 06:36 06:36 MCV 101.1 H (80.0-100.0) fL Neutrophils # 8.7 H (1.3-7.7) k/uL Lymphocytes # 0.5 L (1.0-4.8) k/uL Potassium 3.3 L (3.5-5.1) mmol/L Glucose 114 H (74-99) mg/dL POC Glucose (mg/dL) 212 H (70-110) mg/dL Calcium 8.3 L (8.4-10.2) mg/dL Total Creatine Kinase (30-223) u/L 07/10/24 Range/Units 11:19 MCV (80.0-100.0) fL Neutrophils # (1.3-7.7) k/uL Lymphocytes # (1.0-4.8) k/uL Potassium (3.5-5.1) mmol/L Glucose (74-99) mg/dL POC Glucose (mg/dL) 68 L (70-110) mg/dL Calcium (8.4-10.2) mg/dL Total Creatine Kinase (30-223) u/L
[2024-07-10 17:03] LABS: Glucose,Whole Blood 81 mg/dL (70-110)
[2024-07-10 20:33] LABS: Glucose,Whole Blood 82 mg/dL (70-110)
[2024-07-10] MEDS: ALPRAZolam 0.25 MG TAB PO PRN (21:12)
[2024-07-11 06:02] LABS: Glucose,Whole Blood 109 mg/dL (70-110)
[2024-07-11 07:09] LABS: Basophils % (A) 0 %; Eosinophils # (A) 0.1 k/uL (0-0.7); Eosinophils % (A) 2 %; HCT 42.3 % (39.0-53.0); HGB 13.9 gm/dL (13.0-17.5); Lymphocytes # (A) 0.5 k/uL (1.0-4.8); Lymphocytes % (A) 8 %; MCH 32.8 pg (25.0-35.0); MCHC 32.9 g/dL (31.0-37.0); MCV 99.7 fL (80.0-100.0); Mean Platelet Volume 8.6; Monocytes # (A) 0.4 k/uL (0-1.0); Monocytes % (A) 6 %; Neutrophils # (A) 5.3 k/uL (1.3-7.7); Neutrophils % (A) 82 %; Platelet Count 179 k/uL (150-450); RBC 4.24 m/uL (4.30-5.90); RDW 12.2 % (11.5-15.5); WBC 6.5 k/uL (3.8-10.6)
[2024-07-11 07:39] LABS: African American GFR (CKD) >90 (>60 ml/min/1.73 sqM); Anion Gap 8 mmol/L; Blood Urea Nitrogen 17 mg/dL (9-20); Calcium 7.9 mg/dL (8.4-10.2); Carbon Dioxide 24 mmol/L (22-30); Chloride 104 mmol/L (98-107); Glucose 117 mg/dL (74-99); Magnesium 1.6 mg/dL (1.6-2.3); Non-African American GFR(CKD) 82 (>60 ml/min/1.73 sqM); Potassium 3.4 mmol/L (3.5-5.1); Sodium 136 mmol/L (137-145)
--- NOTE | 2024-07-11 10:39 | P.PN ---
Subjective Patient is seen in follow-up for acute kidney injury. Renal function at baseline. Off IV fluids. Underwent cardiac catheterization July 09, 2024 with stent to the LAD. No active complaints. Wants to go home. Vital signs are stable. General: No acute distress. HEENT: Head exam is unremarkable. LUNGS: No audible rhonchi or wheezes. HEART: Rate and Rhythm are regular. ABDOMEN: Nontender. EXTREMITITES: No edema. Left BKA noted. Objective - Vital Signs Vital signs: Vital Signs Temp 98.8 F 07/11/24 03:45 Pulse 95 07/11/24 03:45 Resp 19 07/11/24 03:45 BP 127/68 07/11/24 03:45 Pulse Ox 94 L 07/11/24 03:45 FiO2 Intake & Output 07/10/24 07/11/24 07/11/24 18:59 06:59 18:59 Intake Total 200 30 Output Total 650 2000 Balance -450 -1970 Weight 111 kg Intake: IV 200 30 Invasive Line 2 20 Invasive Line 3 10 Sodium Chloride 0.9% 1, 200 000 ml @ 50 mls/hr IV . Q20H [facility] Rx#:[id number] Output: Urine 650 2000 Other: Voiding Method Diaper Diaper Incontinent Incontinent External Catheter - Labs CBC & Chem 7: 07/11/24 06:40 07/11/24 06:40 Labs: Abnormal Lab Results - Last 24 Hours (Table) 07/09/24 07/10/24 07/11/24 Range/Units 05:26 11:19 06:40 RBC 4.24 L (4.30-5.90) m/uL Lymphocytes # 0.5 L (1.0-4.8) k/uL Sodium (137-145) mmol/L Potassium (3.5-5.1) mmol/L Glucose (74-99) mg/dL POC Glucose (mg/dL) 68 L (70-110) mg/dL Calcium (8.4-10.2) mg/dL Total Creatine Kinase 321 H (30-223) u/L 07/11/24 Range/Units 06:40 RBC (4.30-5.90) m/uL Lymphocytes # (1.0-4.8) k/uL Sodium 136 L (137-145) mmol/L Potassium 3.4 L (3.5-5.1) mmol/L Glucose 117 H (74-99) mg/dL POC Glucose (mg/dL) (70-110) mg/dL Calcium 7.9 L (8.4-10.2) mg/dL Total Creatine Kinase (30-223) u/L Assessment and Plan Plan: Assessment: 1. Acute kidney injury secondary to ATN secondary to hypotension, hypovolemia. No hydronephrosis noted on ultrasound. Creatinine 1.94 on admission and is stable at 0.95 today. 2. Rhabdomyolysis. CK levels trending down. 3. Status post fall. 4. Elevated troponins. Cardiology following. Status post cardiac cat heterization July 09, 2024 with LAD stent placement. 5. Benign hypertension. Controlled. 6. Diabetes mellitus. 7. Proteinuria. This may be from underlying diabetic kidney disease. Further workup outpatient. Plan: Maintain SGLT2 inhibitor. Replace potassium and magnesium. Avoid nephrotoxins. Continue to monitor renal function and urine output. Repeat BMP and magnesium level 2 to 3 days postdischarge. Follow-up outpatient in 1 week.
[2024-07-11] MEDS: POTASSIUM CHLORIDE ER 20 MEQ TAB.ER PO STA (11:18)
[2024-07-11] MEDS: MAGNESIUM OXIDE 400 MG TAB PO SCH (11:18)
[2024-07-11 11:53] LABS: Glucose,Whole Blood 99 mg/dL (70-110)
[2024-07-11] MEDS: FUROSEMIDE 10 MG/ML 4 ML VIAL IV STA (11:59)
--- NOTE | 2024-07-11 12:40 | XR ---
EXAMINATION TYPE: XR chest 1V portable DATE OF EXAM: 07/11/2024 12:15 PM COMPARISON: Chest radiographs from 07/07/2024 CLINICAL INDICATION: Male, 69 years old with history of Cough, aspiration; [facility] TECHNIQUE: XR chest 1V portable Frontal view of the chest. FINDINGS: Lungs/Pleura: There is no evidence of pleural effusion, focal consolidation, or pneumothorax. Pulmonary vascularity: Unremarkable. Heart/mediastinum: Cardiomediastinal silhouette is unremarkable. Musculoskeletal: No acute osseous pathology. IMPRESSION: No acute cardiopulmonary disease/process. [facility], , 07/11/2024 12:38 PM
--- NOTE | 2024-07-11 13:27 | P.PN ---
Subjective Progress Note Date: 07/11/24 HISTORY OF PRESENT ILLNESS: This is a 69-year-old male with a past medical history significant for hype rtension, diabetes, hyperlipidemia, and CVA. Patient does not follow with a long chain beamer. We have been asked to see the patient in consultation for bated troponins. Patient examined at the bedside emergency room. Patient presented to the hospital after he was found laying on his floor in his apartment by a friend. Patient states he was laying on the floor for 6 weeks, however actual time down is unknown. The patient states that he tripped and denies having any syncope. The patient currently denies any chest pain or pressure. He denies any shortness of breath. Patient was found to have acute kidney injury and is receiving IV fluids. Patient does have a history of CVA back in 2019. He denies any known history of atrial fibrillation. Telemetry reveals sinus mechanism with significant ectopy. Blood pressure stable. He reports a family history of CAD in his dad but states unsure at what age. He is a current smoker. He denies any alcohol use. Denies any drug use including marijuana DIAGNOSTICS: - EKG reveals sinus mechanism with PACs. - Chest xray negative for acute process - Laboratory data: WBC 11.5. Hemoglobin 16.1. Platelet count 198. Sodium 141. Potassium 3.9. BUN 86. Creatinine 1.78. Creatinine kinase 346. Troponin 0.059. 0.064. 0.068. - Current home cardiac medications include lisinopril 10 mg daily, Plavix 75 mg daily, Lipitor 40 mg at night. - Most recent echocardiogram obtained in 2019 reveals ejection fraction 55 to 60%, trace MR, trace TR. - Cardiac catheterization history: Patient denies 07/06/2024 He has been doing okay. Denies any chest pain or shortness of breath. WBC 10.9. Echo was taken however report is still pending. 07/07/2024 Patient laying in bed, flat affect, no specific complaints. Denies any chest pain or shortness of breath. He is not eating much. Echocardiogram does show EF with 35-40%, mild aortic stenosis, mild mitral stenosis, aortic root 4.3 cm. 07/08/2024 Patient is more awake and alert today. He has no complaints. Creat 1.04, improved. 07/09/2024 Patient seen and examined. Patient is scheduled for left heart catheterization today with Dr. Harris. Repeat blood work reveals creatinine is 0.88. Blood pressure 136/69, heart rate 79. 07/10/2024 Patient seen and examined. Yesterday, he underwent cardiac catheterization with Dr. Harris which revealed CAD with mid LAD 90%, circumflex 30 to 40%, OM1 100%, RCA 50 to 60% stenosis with right to left collaterals. Low normal left- sided filling pressures. Patient underwent PCI of the LAD. Patient is on aspirin and Plavix for 12 months. Patient noted to have a fever 100.6, heart rate 109, blood pressure 177/89, pulse ox 92% on 3 L. There is concern that patient is aspirating and is refusing special diet. 07/11/2024 Patient seen and examined. Patient has had no more episodes of fever. Blood pressure 127/68, heart rate 95, pulse ox 94% on 3 L nasal cannula. WBC 6.5, hemoglobin 13.9, sodium 136, potassium 3.4, creatinine 0.95. Potassium has been replaced PHYSICAL EXAM: VITAL SIGNS: Reviewed. GENERAL: Well-developed in no acute distress. HEENT: Head is normocephalic. Pupils are equal, round. Sclerae anicteric. Mucous membranes of the mouth are moist. Neck supple. No JVD or thyromegaly LUNGS: Respirations even and unlabored. Lungs essentially clear to auscultation bilaterally. HEART: Irregular rate and rhythm. S1 and S2 heard. Systolic murmur noted ABDOMEN: Soft. Nondistended. Nontender. EXTREMITIES: No clubbing or cyanosis. Peripheral pulses intact. Left BKA. NEUROLOGIC: Awake and alert. Oriented x 3. ASSESSMENT: Status post mechanical fall without evidence of syncope Acute kidney injury Elevated troponins, flat, likely secondary to poor renal clearance, no evidence of myocardial injury or ischemia History of left BKA History of hypertension History of CVA Diabetes Nicotine/tobacco dependence Mild aortic stenosis Mild mitral stenosis Aortic root 4.3 cm PLAN: Continue patient on aspirin 81 mg daily, Plavix 75 mg daily for 12 months Continue atorvastatin, metoprolol tartrate 25 mg twice daily Continue patient on lisinopril 2.5 mg, amlodipine 5 mg daily Prescriptions for new cardiac medications have been sent to his pharmacy Patient is cleared for discharge from cardiology May follow-up in the office w kodi Harris in 1 week. Cardiology will sign off this case and follow on an as-needed basis. Please reconsult for any new concerns. Nurse practitioner note has been reviewed, I agree with documented findings and plan of care. Patient was seen and examined. Objective - Vital Signs Vital signs: Vital Signs Temp 98.8 F 07/11/24 03:45 Pulse 95 07/11/24 03:45 Resp 19 07/11/24 03:45 BP 127/68 07/11/24 03:45 Pulse Ox 94 L 07/11/24 03:45 FiO2 Intake & Output 07/10/24 07/11/24 07/11/24 18:59 06:59 18:59 Intake Total 200 30 Output Total 650 2000 Balance -450 -1970 Weight 111 kg Intake: IV 200 30 Invasive Line 2 20 Invasive Line 3 10 Sodium Chloride 0.9% 1, 200 000 ml @ 50 mls/hr IV . Q20H [facility] Rx#:[id number] Output: Urine 650 2000 Other: Voiding Method Diaper Diaper Incontinent Incontinent External Catheter - Labs CBC & Chem 7: 07/11/24 06:40 07/11/24 06:40 Labs: Abnormal Lab Results - Last 24 Hours (Table) 07/09/24 07/10/24 07/11/24 Range/Units 05:26 11:19 06:40 RBC 4.24 L (4.30-5.90) m/uL Lymphocytes # 0.5 L (1.0-4.8) k/uL Sodium (137-145) mmol/L Potassium (3.5-5.1) mmol/L Glucose (74-99) mg/dL POC Glucose (mg/dL) 68 L (70-110) mg/dL Calcium (8.4-10.2) mg/dL Total Creatine Kinase 321 H (30-223) u/L 07/11/24 Range/Units 06:40 RBC (4.30-5.90) m/uL Lymphocytes # (1.0-4.8) k/uL Sodium 136 L (137-145) mmol/L Potassium 3.4 L (3.5-5.1) mmol/L Glucose 117 H (74-99) mg/dL POC Glucose (mg/dL) (70-110) mg/dL Calcium 7.9 L (8.4-10.2) mg/dL Total Creatine Kinase (30-223) u/L
[2024-07-11 14:32] VITALS: BMI 32.3
--- NOTE | 2024-07-11 16:47 | P.PN ---
Subjective Progress Note Date: 07/11/24 Patient was seen and examined. Currently on 3L NC saturating 95%. Tmax 100.6F on 07/10. CBC and BMP significant for 4.24, Na 136, K 3.4, glu 117, Ca 7.9. Mag 1.6. CXR shows no acute pulmonary process. General: non toxic, no distress, appears at stated age Derm: warm, dry Head: atraumatic, normocephalic, symmetric Eyes: EOMI, no lid lag, anicteric sclera Mouth: no lip lesion, mucus membranes moist Cardiovascular: S1S2 reg, no murmur Lungs: Clear to auscultation bilateral, no rhonchi, no rales , no accessory muscle use Neuro: no focal neuro deficits Psych: Alert, oriented, appropriate affect Based on my assessment of this patient, this patient meets a high complexity level of care. Acute hypoxic respiratory failure Elevated troponin due to poor renal clearance status post stent to LAD 07/09 HFrEF EF of 35-40% and dilated 4.3 cm aortic root Hypokalemia History of CAD + CVA Mechanical fall Left BKA Diabetes mellitus Hypertension Resolved: Acute kidney injury Concerns for aspiration. Patient initially refusing MBS per ST recommendations now agreeable which is likely to be done tomorrow. Cardiology has cleared the patient for discharge. Continue ASA 81 mg PO QD, Lipitor 40 mg PO QD, Plavix 75 mg PO QD, Metoprolol 25 mg PO BID. Lasix 40 mg IV x 1 today. 40 meq KCl x 1 today. PT/OT on board. Discussed with case management, pending SNF. CODE STATUS: NO CODE DVT Prophylaxis: Heparin SQ GI Prophylaxis: Designated medical POA if patient is not able to make medical decisions for themselves: I have reviewed the following national sales consultant notes: Nephro, Cardio. I have reviewed the results of the following tests: CBC, BMP, Mag. I have ordered the following tests: I have discussed the care of this patient with the following independent historian: Case management. I have independently interpreted the following test below: I have discussed the management of this patient with the following physician: Objective - Vital Signs Vital signs: Vital Signs Temp 98.8 F 07/11/24 03:45 Pulse 87 07/11/24 14:00 Resp 18 07/11/24 14:00 BP 125/69 07/11/24 12:00 Pulse Ox 95 07/11/24 12:00 FiO2 Intake & Output 07/10/24 07/11/24 07/11/24 18:59 06:59 18:59 Intake Total 200 30 20 Output Total 650 2000 250 Balance -450 Weight 111 kg 111 kg Intake: IV 200 30 20 Invasive Line 2 20 Invasive Line 3 10 20 Sodium Chloride 0.9% 1, 200 000 ml @ 50 mls/hr IV . Q20H [facility] Rx#:[id number] Output: Urine 650 2000 250 Other: Voiding Method Diaper Diaper Diaper Incontinent Incontinent Incontinent External Catheter External Catheter - Labs CBC & Chem 7: 07/11/24 06:40 07/11/24 06:40 Labs: Abnormal Lab Results - Last 24 Hours (Table) 07/11/24 07/11/24 Range/Units 06:40 06:40 RBC 4.24 L (4.30-5.90) m/uL Lymphocytes # 0.5 L (1.0-4.8) k/uL Sodium 136 L (137-145) mmol/L Potassium 3.4 L (3.5-5.1) mmol/L Glucose 117 H (74-99) mg/dL Calcium 7.9 L (8.4-10.2) mg/dL
[2024-07-11 16:56] LABS: Glucose,Whole Blood 104 mg/dL (70-110)
[2024-07-11 20:41] LABS: Glucose,Whole Blood 106 mg/dL (70-110)
[2024-07-11] MEDS: HEPARIN SODIUM,PORCINE 5,000 UNIT/ML 1 ML VIAL SQ SCH (22:15)
[2024-07-12 05:51] LABS: Glucose,Whole Blood 136 mg/dL (70-110)
--- NOTE | 2024-07-12 10:17 | P.PN ---
Subjective Patient is seen in follow-up for acute kidney injury. Renal function at baseline. Off IV fluids. Underwent cardiac catheterization July 09, 2024 with stent to the LAD. Denies chest pain or shortness of breath. No active complaints. Vital signs are stable. General: No acute distress. HEENT: Head exam is unremarkable. LUNGS: No audible rhonchi or wheezes. HEART: Rate and Rhythm are regular. ABDOMEN: Nontender. EXTREMITITES: No edema. Left BKA noted. Objective - Vital Signs Vital signs: Vital Signs Temp 98.2 F 07/12/24 08:00 Pulse 93 07/12/24 08:00 Resp 18 07/12/24 08:00 BP 121/69 07/12/24 08:00 Pulse Ox 95 07/12/24 08:00 FiO2 Intake & Output 07/11/24 07/12/24 07/12/24 18:59 06:59 18:59 Intake Total 20 20 50 Output Total 610 500 200 Balance -590 -480 -150 Weight 111 kg 114.5 kg Intake: IV 20 20 Invasive Line 3 20 20 Oral 50 Output: Urine 610 500 200 Other: Voiding Method Diaper Diaper Diaper Incontinent Incontinent Incontinent External Catheter External Catheter External Catheter - Labs CBC & Chem 7: 07/11/24 06:40 07/11/24 06:40 Labs: Abnormal Lab Results - Last 24 Hours (Table) 07/12/24 Range/Units 05:50 POC Glucose (mg/dL) 136 H (70-110) mg/dL Assessment and Plan Plan: Assessment: 1. Acute kidney injury secondary to ATN secondary to hypotension, hypovolemia. No hydronephrosis noted on ultrasound. Creatinine 1.94 on admission and is stable at 0.95 yesterday. 2. Rhabdomyolysis. CK levels trending down. 3. Status post fall. 4. Elevated troponins. Cardiology following. Status post cardiac catheterization July 09, 2024 with LAD stent placement. 5. Benign hypertension. Controlled. 6. Diabetes mellitus. 7. Proteinuria. This may be from underlying diabetic kidney disease. Further workup outpatient. Plan: Maintain SGLT2 inhibitor. Avoid nephrotoxins. Continue to monitor renal function and urine output. Repeat BMP and magnesium level 2 to 3 days postdischarge. Follow-up outpatient in 1 week.
[2024-07-12 11:29] LABS: Glucose,Whole Blood 107 mg/dL (70-110)
--- NOTE | 2024-07-12 13:41 | P.PN ---
Subjective Progress Note Date: 07/12/24 Patient was seen and examined. Currently on 3L NC saturating 94%. No new labs done today. General: non toxic, no distress, appears at stated age Derm: warm, dry Head: atraumatic, normocephalic, symmetric Eyes: EOMI, no lid lag, anicteric sclera Mouth: no lip lesion, mucus membranes moist Cardiovascular: S1S2 reg, no murmur Lungs: Clear to auscultation bilateral, no rhonchi, no rales , no accessory musc le use Neuro: no focal neuro deficits Psych: Alert, oriented, appropriate affect Based on my assessment of this patient, this patient meets a high complexity level of care. Acute hypoxic respiratory failure Elevated troponin due to poor renal clearance status post stent to LAD 07/09 HFrEF EF of 35-40% and dilated 4.3 cm aortic root Hypokalemia History of CAD + CVA Mechanical fall Left BKA Diabetes mellitus Hypertension Resolved: Acute kidney injury Concerns for aspiration. Patient failed MBS and recommendation for PEG for TF by ST, will discuss with patient as he seemed reluctant in the past. Cardiology has cleared the patient for discharge. Continue ASA 81 mg PO QD, Lipitor 40 mg PO QD, Plavix 75 mg PO QD, Metoprolol 25 mg PO BID. Check BMP and Mag in the AM. PT/OT on board. Discussed with case management, pending SNF. CODE STATUS: NO CODE DVT Prophylaxis: Heparin SQ GI Prophylaxis: Designated medical POA if patient is not able to make medical decisions for themselves: I have reviewed the following store consultant notes: Nephro I have reviewed the results of the following tests: I have ordered the following tests: BMP, Mag. I have discussed the care of this patient with the following independent historian: Case management, ST I have independently interpreted the following test below: I have discussed the management of this patient with the following physician: Objective - Vital Signs Vital signs: Vital Signs Temp 98.2 F 07/12/24 08:00 Pulse 96 07/12/24 11:41 Resp 16 07/12/24 11:41 BP 102/68 07/12/24 11:41 Pulse Ox 94 L 07/12/24 11:41 FiO2 Intake & Output 07/11/24 07/12/24 07/12/24 18:59 06:59 18:59 Intake Total 20 20 50 Output Total 610 500 200 Balance -590 -480 -150 Weight 111 kg 114.5 kg Intake: IV 20 20 Invasive Line 3 20 20 Oral 50 Output: Urine 610 500 200 Other: Voiding Method Diaper Diaper Diaper Incontinent Incontinent Incontinent External Catheter External Catheter External Catheter - Labs CBC & Chem 7: 07/11/24 06:40 07/11/24 06:40 Labs: Abnormal Lab Results - Last 24 Hours (Table) 07/12/24 Range/Units 05:50 POC Glucose (mg/dL) 136 H (70-110) mg/dL
--- NOTE | 2024-07-12 15:02 | FL ---
EXAMINATION TYPE: FL barium swallow w video DATE OF EXAM: 07/12/2024 MODIFIED SWALLOW / DEGLUTITION STUDY CLINICAL HISTORY: Dysphagia. History of stroke. Rule out aspiration. TECHNIQUE: Deglutition study is performed utilizing thin liquid barium, honey and nectar thick liqui d barium and barium thick pudding. 2 minutes 45 seconds of fluoro time and 0 images obtained. Total dose area product (DAP) in uGy*m?, mGy*cm? (or similar): 313.68 COMPARISON: None. FINDINGS: The oral and pharyngeal phases show at times poor and absent initiation of swallowing. Sati sfactory propagation is seen. No aspiration is identified. Mild pharyngeal residuals are seen. IMPRESSION: As above. Please refer to speech therapist notes for further details if necessary. [facility], , 07/12/2024 2:59 PM
[2024-07-12 17:00] LABS: Glucose,Whole Blood 132 mg/dL (70-110)
[2024-07-12 19:51] LABS: Glucose,Whole Blood 123 mg/dL (70-110)
[2024-07-13 06:15] LABS: Glucose,Whole Blood 127 mg/dL (70-110)
[2024-07-13 08:55] LABS: African American GFR (CKD) 86 (>60 ml/min/1.73 sqM); Anion Gap 11 mmol/L; Blood Urea Nitrogen 25 mg/dL (9-20); Calcium 8.3 mg/dL (8.4-10.2); Carbon Dioxide 24 mmol/L (22-30); Chloride 104 mmol/L (98-107); Glucose 135 mg/dL (74-99); Magnesium 1.7 mg/dL (1.6-2.3); Non-African American GFR(CKD) 75 (>60 ml/min/1.73 sqM); Potassium 3.8 mmol/L (3.5-5.1); Sodium 139 mmol/L (137-145)
--- NOTE | 2024-07-13 10:20 | P.PN ---
Subjective Patient is seen in follow-up for acute kidney injury. Renal function at baseline. Off IV fluids. Underwent cardiac catheterization July 09, 2024 with stent to the LAD. Denies chest pain or shortness of breath. No active complaints. Failed barium swallow eval. Vital signs are stable. General: No acute distress. HEENT: Head exam is unremarkable. LUNGS: No audible rhonchi or wheezes. HEART: Rate and Rhythm are regular. ABDOMEN: Nontender. EXTREMITITES: No edema. Left BKA noted. Objective - Vital Signs Vital signs: Vital Signs Temp 98 F 07/13/24 08:00 Pulse 96 07/13/24 08:00 Resp 20 07/13/24 08:00 BP 120/71 07/13/24 08:00 Pulse Ox 93 L 07/13/24 08:00 FiO2 Intake & Output 07/12/24 07/13/24 07/13/24 18:59 06:59 18:59 Intake Total 50 0 Output Total 300 400 200 Balance -250 -400 -200 Weight 114.5 kg Intake: Oral 50 0 Output: Urine 300 400 200 Other: Voiding Method Diaper Diaper Diaper Incontinent Incontinent Incontinent External Catheter External Catheter External Catheter - Labs CBC & Chem 7: 07/11/24 06:40 07/13/24 07:43 Labs: Abnormal Lab Results - Last 24 Hours (Table) 07/12/24 07/12/24 07/13/24 Range/Units 16:58 19:49 06:10 BUN (9-20) mg/dL Glucose (74-99) mg/dL POC Glucose (mg/dL) 132 H 123 H 127 H (70-110) mg/dL Calcium (8.4-10.2) mg/dL 07/13/24 Range/Units 07:43 BUN 25 H (9-20) mg/dL Glucose 135 H (74-99) mg/dL POC Glucose (mg/dL) (70-110) mg/dL Calcium 8.3 L (8.4-10.2) mg/dL Assessment and Plan Plan: Assessment: 1. Acute kidney injury secondary to ATN secondary to hypotension, hypovolemia. No hydronephrosis noted on ultrasound. Creatinine 1.94 on admission and is stab le at 1.03 today. 2. Rhabdomyolysis. CK levels trending down. 3. Status post fall. 4. Elevated troponins. Cardiology following. Status post cardiac catheterization July 09, 2024 with LAD stent placement. 5. Benign hypertension. Controlled. 6. Diabetes mellitus. 7. Proteinuria. This may be from underlying diabetic kidney disease. Further workup outpatient. Plan: Maintain SGLT2 inhibitor. Avoid nephrotoxins. Continue to monitor renal function and urine output. Repeat BMP and magnesium level 2 to 3 days postdischarge. Follow-up outpatient in 1 week.
[2024-07-13 11:24] LABS: Glucose,Whole Blood 137 mg/dL (70-110)
--- NOTE | 2024-07-13 16:35 | P.PN ---
Subjective Progress Note Date: 07/13/24 Patient was seen and examined. Currently on 3L NC saturating 92%. BMP shows BUN 25, glu 135, Ca 8.3. Mag 1.7. Video swallow shows oral and pharyngeal phases show at times poor and absent initiation of swallowing, mild pharyngeal residuals. Discussed with ST, recommend NPO and PEG. Patient is adamant about not wanting a PEG. Per case management, SNF unable to accept him as he is non compliant with recommended diet. We will obtain MRI brain to evaluate for new strokes given he passed his swallow evaluation in 2019 after his CVA. General: non toxic, no distress, appears at stated age Derm: warm, dry Head: atraumatic, normocephalic, symmetric Eyes: EOMI, no lid lag, anicteric sclera Mouth: no lip lesion, mucus membranes moist Cardiovascular: S1S2 reg, no murmur Lungs: Clear to auscultation bilateral, no rhonchi, no rales , no accessory muscle use Neuro: no focal neuro deficits Psych: Alert, oriented, appropriate affect Based on my assessment of this patient, this patient meets a high complexity level of care. Acute hypoxic respiratory failure Elevated troponin due to poor renal clearance status post stent to LAD 07/09 HFrEF EF of 35-40% and dilated 4.3 cm aortic root Hypokalemia History of CAD + CVA Mechanical fall Left BKA Diabetes mellitus Hypertension Resolved: Acute kidney injury Concerns for aspiration. Patient failed MBS and recommendation for PEG for TF by ST, patient declines PEG. Cardiology has cleared the patient for discharge. Continue ASA 81 mg PO QD, Lipitor 40 mg PO QD, Plavix 75 mg PO QD, Metoprolol 25 mg PO BID. Obtain MRI brain to evaluate for new CVA given he passed his swallow evaluation in 2019 after his CVA. PT/OT on board. Discussed with case management, pending SNF. CODE STATUS: NO CODE DVT Prophylaxis: Heparin SQ GI Prophylaxis: Designated medical POA if patient is not able to make medical decisions for themselves: I have reviewed the following mental health consultant notes: Nephro I have reviewed the results of the following tests: I have ordered the following tests: BMP, Mag. I have discussed the care of this patient with the following independent his marcus: Case management I have independently interpreted the following test below: I have discussed the management of this patient with the following physician: Objective - Vital Signs Vital signs: Vital Signs Temp 98 F 01/17/25 08:00 Pulse 103 H 07/13/24 11:28 Resp 18 07/13/24 11:28 BP 128/76 07/13/24 11:28 Pulse Ox 92 L 07/13/24 11:28 FiO2 Intake & Output 07/12/24 07/13/24 07/13/24 18:59 06:59 18:59 Intake Total 50 0 Output Total 300 400 200 Balance -250 -400 -200 Weight 114.5 kg Intake: Oral 50 0 Output: Urine 300 400 200 Other: Voiding Method Diaper Diaper Diaper Incontinent Incontinent Incontinent External Catheter External Catheter External Catheter - Labs CBC & Chem 7: 07/11/24 06:40 07/13/24 07:43 Labs: Abnormal Lab Results - Last 24 Hours (Table) 07/12/24 07/12/24 07/13/24 Range/Units 16:58 19:49 06:10 BUN (9-20) mg/dL Glucose (74-99) mg/dL POC Glucose (mg/dL) 132 H 123 H 127 H (70-110) mg/dL Calcium (8.4-10.2) mg/dL 07/13/24 07/13/24 Range/Units 07:43 11:23 BUN 25 H (9-20) mg/dL Glucose 135 H (74-99) mg/dL POC Glucose (mg/dL) 137 H (70-110) mg/dL Calcium 8.3 L (8.4-10.2) mg/dL
[2024-07-13 16:36] LABS: Glucose,Whole Blood 190 mg/dL (70-110)
[2024-07-13 20:22] LABS: Glucose,Whole Blood 224 mg/dL (70-110)
[2024-07-13] MEDS: LORazepam 2 MG/ML INJ IV STA (23:07)
[2024-07-14 05:54] LABS: Glucose,Whole Blood 170 mg/dL (70-110)
--- NOTE | 2024-07-14 10:22 | P.PN ---
Subjective Patient is seen in follow-up for acute kidney injury. Renal function at baseline. Off IV fluids. Underwent cardiac catheterization July 09, 2024 with stent to the LAD. No active complaints. Vital signs are stable. General: No acute distress. HEENT: Head exam is unremarkable. LUNGS: No audible rhonchi or wheezes. HEART: Rate and Rhythm are regular. ABDOMEN: Nontender. EXTREMITITES: No edema. Left BKA noted. Objective - Vital Signs Vital signs: Vital Signs Temp 98 F 07/14/24 08:25 Pulse 103 H 07/14/24 08:25 Resp 17 07/14/24 08:25 BP 131/72 07/14/24 08:25 Pulse Ox 91 L 07/14/24 08:25 FiO2 Intake & Output 07/13/24 07/14/24 07/14/24 18:59 06:59 18:59 Intake Total 0 Output Total 350 1000 Balance -350 -1000 Weight 114.5 kg Intake: Oral 0 Output: Urine 350 1000 Other: Voiding Method Diaper Diaper Diaper Incontinent Incontinent Incontinent External Catheter External Catheter External Catheter - Labs CBC & Chem 7: 07/11/24 06:40 07/13/24 07:43 Labs: Abnormal Lab Results - Last 24 Hours (Table) 07/13/24 07/13/24 07/13/24 Range/Units 11:23 16:35 20:19 POC Glucose (mg/dL) 137 H 190 H 224 H (70-110) mg/dL 07/14/24 Range/Units 05:49 POC Glucose (mg/dL) 170 H (70-110) mg/dL Assessment and Plan Plan: Assessment: 1. Acute kidney injury secondary to ATN secondary to hypotension, hypovolemia. No hydronephrosis noted on ultrasound. Creatinine 1.94 on admission and is stable at 1.03 yesterday. 2. Rhabdomyolysis. CK levels trending down. 3. Status post fall. 4. Elevated troponins. Cardiology following. Status post cardiac catheterization July 09, 2024 with LAD stent placement. 5. Benign hypertension. Controlled. 6. Diabetes mellitus. 7. Proteinuria. This may be from underlying diabetic kidney disease. Further workup outpatient. 8. Cardiomyopathy with ejection fraction 35 to 40%. 9. Concern for aspiration. Patient declining PEG tube per records. Plan: Maintain SGLT2 inhibitor. Avoid nephrotoxins. Continue to monitor renal function and urine output. Repeat BMP and magnesium level 2 to 3 days postdischarge. Follow-up outpatient in 1 week.
--- NOTE | 2024-07-14 10:26 | P.PN ---
Subjective Progress Note Date: 07/14/24 Patient was seen and examined. Currently on 3L NC saturating 91%. Discussed the recommendation by ST for PEG which patient is now agreeable for now so we will consult surgery. General: non toxic, no distress, appears at stated age Derm: warm, dry Head: atraumatic, normocephalic, symmetric Eyes: EOMI, no lid lag, anicteric sclera Mouth: no lip lesion, mucus membranes moist Cardiovascular: S1S2 tachy, no murmur Lungs: Decreased BS bilateral, no rhonchi, no rales , no accessory muscle use Neuro: no focal neuro deficits Psych: Alert, oriented, appropriate affect Based on my assessment of this patient, this patient meets a high complexity level of care. Acute hypoxic respiratory failure Dysphagia Elevated troponin due to poor renal clearance status post stent to LAD 07/09 HFrEF EF of 35-40% and dilated 4.3 cm aortic root History of CAD + CVA Mechanical fall Left BKA Diabetes mellitus Hypertension Resolved: Acute kidney injury, HypoK Concerns for aspiration. Patient failed MBS and recommendation for PEG for TF by ST. Patient is now agreeable. Surgery consulted. Obtain MRI brain to evaluate for new CVA given he passed his swallow evaluation in 2019 after his CVA. Continue ASA 81 mg PO QD, Lipitor 40 mg PO QD, Plavix 75 mg PO QD, Metoprolol 25 mg PO BID. Continue Farxiga 5 mg PO QD, Lisinopril 2.5 mg PO QD and beta kosta as above for HFrEF. PT/OT on board. Case management on board for SNF. CODE STATUS: NO CODE DVT Prophylaxis: Heparin SQ GI Prophylaxis: Designated medical POA if patient is not able to make medical decisions for themselves: I have reviewed the following industry consultant notes: Nephro I have reviewed the results of the following tests: I have ordered the following tests: I have discussed the care of this patient with the following independent historian: I have independently interpreted the following test below: I have discussed the management of this patient with the following physician: Objective - Vital Signs Vital signs: Vital Signs Temp 98 F 07/14/24 08:25 Pulse 103 H 07/14/24 08:25 Resp 17 07/14/24 08:25 BP 131/72 07/14/24 08:25 Pulse Ox 91 L 07/14/24 08:25 FiO2 Intake & Output 0107/14/24 07/14/24 18:59 06:59 18:59 Intake Total 0 Output Total 350 1000 Balance -350 -1000 Weight 114.5 kg Intake: Oral 0 Output: Urine 350 1000 Other: Voiding Method Diaper Diaper Diaper Incontinent Incontinent Incontinent External Catheter External Catheter External Catheter - Labs CBC & Chem 7: 07/11/24 06:40 07/13/24 07:43 Labs: Abnormal Lab Results - Last 24 Hours (Table) 07/13/24 07/13/24 07/13/24 Range/Units 11:23 16:35 20:19 POC Glucose (mg/dL) 137 H 190 H 224 H (70-110) mg/dL 07/14/24 Range/Units 05:49 POC Glucose (mg/dL) 170 H (70-110) mg/dL
[2024-07-14 11:26] LABS: Glucose,Whole Blood 174 mg/dL (70-110)
--- NOTE | 2024-07-14 12:22 | MR ---
EXAMINATION TYPE: MR brain wo con DATE OF EXAM: 07/14/2024 12:08 PM COMPARISON: 11/13/2018. CLINICAL INDICATION: Male, 69 years old with history of r/o new CVA; PHH, Fall, evaluate for CVA. TECHNIQUE: Multi planar, multi sequence imaging was performed through the brain including: T1, T2, In version recovery, Diffusion weighted imaging, and gradient echo imaging. No gadolinium was given. FINDINGS: Mild cerebral atrophy with proportional dilation of ventricular system. Remote left frontal lobe cor joleen radiata injury with surrounding gliosis. Scattered foci of high T2 signal intensity are seen with in the periventricular white matter. Midline structures show no abnormality. Diffusion-weighted imagi ng shows no evidence of restricted diffusion. The susceptibility weighted images reveal few scattered blooming artifact compatible with micro-hemorrhage. The bone marrow signal is within normal limits. Paranasal sinuses and mastoid air cells: No significant paranasal sinus disease. Bilateral trace high T2 signal compatible with mastoid air cell effusions. Visualized orbits: Bilateral aphakia IMPRESSION: 1. No evidence of intracranial mass or acute/subacute infarct. 2. Nonspecific white matter changes, likely secondary to small vessel ischemic disease. [facility], , 07/14/2024 12:19 PM
--- NOTE | 2024-07-14 13:49 | P.CON ---
Consult Note - . Consult date: 07/14/24 Assessment/Plan:: I went to evaluate patient for PEG Tube and he was in MRI. Will reevaluate at later time Mohit Spring DO [facility] [phone]
[2024-07-14 16:30] LABS: Glucose,Whole Blood 177 mg/dL (70-110)
[2024-07-14 20:25] LABS: Glucose,Whole Blood 166 mg/dL (70-110)
[2024-07-15 06:03] LABS: Glucose,Whole Blood 148 mg/dL (70-110)
[2024-07-15 07:12] LABS: African American GFR (CKD) >90 (>60 ml/min/1.73 sqM); Anion Gap 8 mmol/L; Blood Urea Nitrogen 19 mg/dL (9-20); Calcium 8.6 mg/dL (8.4-10.2); Carbon Dioxide 27 mmol/L (22-30); Chloride 106 mmol/L (98-107); Glucose 160 mg/dL (74-99); Magnesium 1.6 mg/dL (1.6-2.3); Non-African American GFR(CKD) >90 (>60 ml/min/1.73 sqM); Potassium 3.5 mmol/L (3.5-5.1); Sodium 141 mmol/L (137-145)
--- NOTE | 2024-07-15 11:05 | P.PN ---
Subjective Patient is seen in follow-up for acute kidney injury. Renal function at baseline. Off IV fluids. Underwent cardiac catheterization July 09, 2024 with stent to the LAD. No active complaints. Vital signs are stable. General: No acute distress. HEENT: Head exam is unremarkable. LUNGS: No audible rhonchi or wheezes. HEART: Rate and Rhythm are regular. ABDOMEN: Nontender. EXTREMITITES: No edema. Left BKA noted. Objective - Vital Signs Vital signs: Vital Signs Temp 97.8 F 07/15/24 08:40 Pulse 100 07/15/24 08:40 Resp 18 07/15/24 08:40 BP 135/78 07/15/24 08:40 Pulse Ox 94 L 07/15/24 08:40 FiO2 Intake & Output 07/14/24 07/15/24 07/15/24 18:59 06:59 18:59 Output Total 800 100 600 Balance -800 -100 -600 Weight 114 kg Output: Urine 800 100 600 Other: Voiding Method Diaper Diaper Diaper Incontinent Incontinent Incontinent External Catheter External Catheter External Catheter - Labs CBC & Chem 7: 07/11/24 06:40 07/15/24 06:06 Labs: Abnormal Lab Results - Last 24 Hours (Table) 07/14/24 07/14/24 07/14/24 Range/Units 11:24 16:29 20:23 Glucose (74-99) mg/dL POC Glucose (mg/dL) 174 H 177 H 166 H (70-110) mg/dL 07/15/24 07/15/24 Range/Units 06:01 06:06 Glucose 160 H (74-99) mg/dL POC Glucose (mg/dL) 148 H (70-110) mg/dL Assessment and Plan Plan: Assessment: 1. Acute kidney injury secondary to ATN secondary to hypotension, hypovolemia. No hydronephrosis noted on ultrasound. Creatinine 1.94 on admission and is 0.8 today. 2. Rhabdomyolysis. CK levels trending down. 3. Status post fall. 4. Elevated troponins. Cardiology following. Status post cardiac catheterization July 09, 2024 with LAD stent placement. 5. Benign hypertension. Controlled. 6. Diabetes mellitus. 7. Proteinuria. This may be from underlying diabetic kidney disease. Further workup outpatient. 8. Cardiomyopathy with ejection fraction 35 to 40%. 9. Concern for aspiration. Plan: PEG tube being considered. Maintain SGLT2 inhibitor. Avoid nephrotoxins. Replace magnesium. Continue to monitor renal function and urine output. Repeat BMP and magnesium level 2 to 3 days postdischarge. Follow-up outpatient in 1 week.
[2024-07-15 11:11] LABS: Glucose,Whole Blood 162 mg/dL (70-110)
--- NOTE | 2024-07-15 11:31 | P.PN ---
Subjective Progress Note Date: 07/15/24 Patient was seen and examined. Currently on 3L NC saturating 94%. MRI brain done yesterday showing no acute intracranial abnormality. BMP glu 160. Mag 1.6. I discussed the case with the patient and brother at bedside. Patient is not refusing PEG tube and refusing any sort of placement. He understands that if he is to eat, this may lead to worsening aspiration and possibly . He is open towards hospice at home. Brother is unsure if patient will be able to manage at home. Plans to consult hospice. Will start NDD1 with nectar thick liquids. General: non toxic, no distress, appears at stated age Derm: warm, dry Head: atraumatic, normocephalic, symmetric Eyes: EOMI, no lid lag, anicteric sclera Mouth: no lip lesion, mucus membranes moist Cardiovascular: S1S2 tachy, no murmur Lungs: Decreased BS bilateral, no rhonchi, no rales , no accessory muscle use Neuro: no focal neuro deficits Psych: Alert, oriented, appropriate affect Based on my assessment of this patient, this patient meets a high complexity level of care. Acute hypoxic respiratory failure with concerns for aspiration Dysphagia Elevated troponin due to poor renal clearance status post stent to LAD 07/09 HFrEF EF of 35-40% and dilated 4.3 cm aortic root History of CAD + CVA Mechanical fall Left BKA Diabetes mellitus Hypertension Resolved: Acute kidney injury, HypoK Consult hospice. NDD1 with NT liquids. Continue ASA 81 mg PO QD, Lipitor 40 mg PO QD, Plavix 75 mg PO QD, Metoprolol 25 mg PO BID. Continue Farxiga 5 mg PO QD, Lisinopril 2.5 mg PO QD and beta kosta as above for HFrEF. PT/OT on board. Case management on board. CODE STATUS: NO CODE DVT Prophylaxis: Heparin SQ GI Prophylaxis: Designated medical POA if patient is not able to make medical decisions for themselves: Brother I have reviewed the following rehabilitation consultant notes: Nephro, Surgery I have reviewed the results of the following tests: MRI brain, BMP, Mag. I have ordered the following tests: I have discussed the care of this patient with the following independent historian: RN. Perez. I have independently interpreted the following test below: I have discussed the management of this patient with the following physician: Objective - Vital Signs Vital signs: Vital Signs Temp 97.9 F 07/15/24 04:00 Pulse 101 H 07/15/24 04:00 Resp 18 07/15/24 04:00 BP 152/68 07/15/24 04:00 Pulse Ox 94 L 07/15/24 04:00 FiO2 Intake & Output 07/14/24 07/15/24 07/15/24 18:59 06:59 18:59 Output Total 800 100 Balance -800 -100 Weight 114 kg Output: Urine 800 100 Other: Voiding Method Diaper Diaper Incontinent Incontinent External Catheter External Catheter - Labs CBC & Chem 7: 07/11/24 06:40 07/15/24 06:06 Labs: Abnormal Lab Results - Last 24 Hours (Table) 07/14/24 07/14/24 07/14/24 Range/Units 11:24 16:29 20:23 Glucose (74-99) mg/dL POC Glucose (mg/dL) 174 H 177 H 166 H (70-110) mg/dL 07/15/24 07/15/24 Range/Units 06:01 06:06 Glucose 160 H (74-99) mg/dL POC Glucose (mg/dL) 148 H (70-110) mg/dL
[2024-07-15] MEDS: MAGNESIUM SULFATE-D5W PMX 1 GM in DEXTROSE/WATER 1 100ML.BAG IVPB SCH (11:48)
[2024-07-15 16:04] LABS: Glucose,Whole Blood 211 mg/dL (70-110)
[2024-07-15 20:42] LABS: Glucose,Whole Blood 204 mg/dL (70-110)
[2024-07-16] MEDS: ZOLPIDEM 5 MG TAB PO PRN (01:42)
[2024-07-16 05:20] VITALS: BP 110/67; PULSE 108; RESP 14; TEMP 98.9
--- NOTE | 2024-07-16 14:41 | P.DS ---
Providers Date of admission: 07/04/24 21:42 Expected date of discharge: 07/16/24 Attending physician: Clifton Schultz MD Consults: 07/04/24 23:31 Consult Physician Routine Consulting Provider: Silver Lee Consult Reason/Comments: ADRIAN Do you want consulting provider notified?: Yes, Notify in am 07/04/24 23:32 Consult Physician Routine Consulting Provider: Omar Sandoval Consult Reason/Comments: elevated trop Do you want consulting provider notified?: Yes, Notify in am 07/09/24 15:25 Consult Physician Routine Consulting Provider: [facility] Consult Reason/Comments: Post Interventional Patient Do you want consulting provider notified?: Already Contacted Primary care physician: [facility] Course: note: 69 year old M with PMH of diabetes, hypertension, history of CVA and L BKA presenting after mechanical fall. Vitals on admission temperature 98, heart rate 88 bpm, respiratory rate 18, blood pressure 95/57, O2 saturation 95% on 2 L nasal cannula. EKG showed sinus tachycardia with ventricular rate of 127 bpm and QTc of 425 ms. CXR showed no acute pulmonary process. CT of head showed no acute intracranial hemorrhage or midline shift. CT of cervical spine showed no acute fracture or dislocation. CT of facial bones showed no acute displaced fracture, mild to moderate swelling and hematoma over the right orbit. Labs on admission showed WBCs 13.2 with left shift, hemoglobin 17.9, MCV 101.6 platelets 211. Sodium 141, potassium 4.2, chloride 101, bicarb 26, BUN 84, creatinine 1.94, glucose 321. Lactic acid 3.2. Calcium 9.6. Phosphorus 4.7. Magnesium 2.0. AST 24, ALT 21, ALP 84. CK 346. Troponin 0.059. UA positive for protein and glucose. Patient was admitted for ADRIAN and elevated troponin with Cardiology and Nephrology on consult. Echo showed EF 35-40% with moderate concentric LVH and apical septal hypokinesis. Troponins 0.059, 0.064, 0.068. Venous duplex and V/Q negative for DVT/PE. Cardiology recommended cardiac cath which showed mid LAD 90%, circumflex 30-40%, OM1 100%, RCA 50-60% stenosis with right to left collaterals status post PCI mid LAD. ADRIAN improved with IV hydration. Patient had episodes of dysphagia and given his hypoxia there was concerns for aspiration, ST was consulted. Video swallow showed oral and pharyngeal phases show at times poor and absent initiation of swallowing, mild pharyngeal residuals. ST recommended NPO and consideration for PEG. Patient declined PEG and wanted to enroll in hospice on 07/15. Telemetry monitoring showed V-Fib overnight and patient was declared dece ased at 4:42AM on 07/16. Diagnosis: VFib arrest Acute hypoxic respiratory failure with concerns for aspiration Dysphagia Elevated troponin due to poor renal clearance status post stent to LAD 07/09 HFrEF EF of 35-40% and dilated 4.3 cm aortic root History of CAD + CVA Mechanical fall Left BKA Diabetes mellitus Hypertension Resolved: Acute kidney injury, HypoK Plan - Discharge Summary Discharge Rx Participant: Yes New Discharge Prescriptions: New Aspirin 81 mg PO DAILY tab Metoprolol Tartrate [Lopressor] 25 mg PO BID #180 tab Nitroglycerin Sl Tabs [Nitrostat] 0.4 mg SUBLINGUAL Q5M PRN #25 tab PRN Reason: Chest Pain amLODIPine [Norvasc] 5 mg PO DAILY #90 tab lisinopriL [Zestril] 2.5 mg PO DAILY #90 tab Continue Atorvastatin [Lipitor] 40 mg PO HS #30 tab Clopidogrel [Plavix] 75 mg PO DAILY #30 tab Discontinued lisinopriL [Zestril] 10 mg PO DAILY #30 tab No Action metFORMIN HCL [Glucophage] 1,000 mg PO BID-W/MEALS #60 tab SITagliptin [Zituvio] 100 mg PO DAILY Pioglitazone [Actos] 30 mg PO DAILY traZODone HCL [Desyrel] 100 mg PO HS Discharge Medication List Atorvastatin [Lipitor] 40 mg PO HS #30 tab 11/15/18 [Rx] Clopidogrel [Plavix] 75 mg PO DAILY #30 tab 11/15/18 [Rx] metFORMIN HCL [Glucophage] 1,000 mg PO BID-W/MEALS #60 tab 11/15/18 [Rx] Pioglitazone [Actos] 30 mg PO DAILY 07/05/24 [History] SITagliptin [Zituvio] 100 mg PO DAILY 07/05/24 [History] traZODone HCL [Desyrel] 100 mg PO HS 07/05/24 [History] Aspirin 81 mg PO DAILY tab 07/11/24 [Rx] Metoprolol Tartrate [Lopressor] 25 mg PO BID #180 tab 07/11/24 [Rx] Nitroglycerin Sl Tabs [Nitrostat] 0.4 mg SUBLINGUAL Q5M PRN #25 tab 07/11/24 [Rx] amLODIPine [Norvasc] 5 mg PO DAILY #90 tab 07/11/24 [Rx] lisinopriL [Zestril] 2.5 mg PO DAILY #90 tab 07/11/24 [Rx] Follow up Appointment(s)/Referral(s): Trace Harris DO [STAFF PHYSICIAN] - 1 Week [facility]Clinic [Primary Care Provider] - 1-2 days Discharge Disposition: - Preliminary Cause of Preliminary Cause of : Ventricular fibrillation
--- NOTE | 2024-07-18 08:59 | CDI ---
Documentation Clarification Form Date: 07/18/2024 08:47:08 AM From: Katherine Higgins Admit Date: 07/04/2024 09:42:00 PM Patient Name: Jorge A Bran Visit Number: [id number] Discharge Date: 07/16/2024 04:42:00 AM ATTENTION: The Clinical Documentation Specialists (CDI) and [facility] Coding Staff appreciate your assistance in clarifying documentation. Please respond to the clarification below the line at the bottom and electronically sign. The CDI & [facility] Coding staff will review the response and follow-up if needed. Please note: Queries are made part of the Legal Health Record. If you have any questions, please contact the author of this message via ITS. Doctor/Provider: Rain Nix documentation has been found in the medical record. As attending physician, please provide clarification. PCI heart cath report INDICATION: Cardiopathy, NSTEMI H and P Elevated troponins likely secondary to ADRIAN H and P Elevated troponin in the absence of chest pain History/Risk Factors: CAD, elevated troponins, cardiomyopathy ADRIAN/demand Clinical Indicators: Elevated troponins, cardiac arrest, vfib Treatment: Cardiac cath with stent insertion Please clarify which diagnosis is most appropriate: [x ] NSTEMI [ ] Elevated troponin secondary to ADRIAN [ ] Demand Ischemia [ ] Other (please specify) [ ] Unable to determine MTDD
== END 2024-07-16 04:42 | disposition expired | DRG 323 ==
LOC: EC 19:03 → 3SCARD 21:42
PROVIDERS: ADMIT Internal Medicine; ATTEND Internal Medicine
PROC: 027034Z Dilation of Coronary Artery, One Artery with Drug-eluting Intraluminal Device, Percutaneous Approach (ICD-10-PCS; principal; 2024-07-09 11:20)
PROC: 02F03ZZ Fragmentation in Coronary Artery, One Artery, Percutaneous Approach (ICD-10-PCS; principal; 2024-07-09 11:20)
PROC: 4A023N7 Measurement of Cardiac Sampling and Pressure, Left Heart, Percutaneous Approach (ICD-10-PCS; principal; 2024-07-09 11:20)
DX: I21.4 Non-ST elevation (NSTEMI) myocardial infarction (principal); J96.01 Acute respiratory failure with hypoxia; N17.0 Acute kidney failure with tubular necrosis; I50.22 Chronic systolic (congestive) heart failure; E11.65 Type 2 diabetes mellitus with hyperglycemia; F32.A Depression, unspecified; I11.0 Hypertensive heart disease with heart failure; M62.82 Rhabdomyolysis; I42.9 Cardiomyopathy, unspecified; Z51.5 Encounter for palliative care; R13.10 Dysphagia, unspecified; W01.0XXA Fall on same level from slipping, tripping and stumbling without subsequent striking against object, initial encounter; E78.5 Hyperlipidemia, unspecified; S01.81XA Laceration without foreign body of other part of head, initial encounter; E86.0 Dehydration; E86.1 Hypovolemia; E87.6 Hypokalemia; F17.290 Nicotine dependence, other tobacco product, uncomplicated; I25.10 Atherosclerotic heart disease of native coronary artery without angina pectoris; I45.10 Unspecified right bundle-branch block; I46.2 Cardiac arrest due to underlying cardiac condition; I49.01 Ventricular fibrillation; Z66 Do not resuscitate; Z79.02 Long term (current) use of antithrombotics/antiplatelets; Z79.4 Long term (current) use of insulin; Z79.84 Long term (current) use of oral hypoglycemic drugs; Z79.82 Long term (current) use of aspirin; Z79.899 Other long term (current) drug therapy; Z86.73 Personal history of transient ischemic attack (TIA), and cerebral infarction without residual deficits; Z91.199 Patient's noncompliance with other medical treatment and regimen due to unspecified reason; Z71.3 Dietary counseling and surveillance
CPT/HCPCS: 36415; 70450; 70486; 70551; 71045; 71046; 72125; 74230; 76770; 78582; 80048; 80053; 81001; 82009; 82550; 82552; 82607; 82747; 83036; 83605; 83735; 84100; 84484; 85025; 85027; 85379; 92972; 93005; 93306; 93458; 93970; 94760; 96361; 96372; 96374; 99285